=== PATIENT | female | born 1955 | race Caucasian/White ===

== ENCOUNTER → 2016-07-26 | Outpatient (CLI) | payer MEDICARE ==
[~2016-07-26] MED LIST: ACET500C PO; ALEN70TA39 PO; BUPR150T3 PO; BUTR10DI2 TD; CELE40TA PO; GABA300C3 PO; HUMI40KI SC; LEVO300T3 PO; LIDO5OI TOP; LYRI75CA PO; NEUR300C PO; ORPH100T PO; PREG50CA PO; PROT1TAB2 PO; PROV100T4 PO; TOPA100T8 PO; TYLENOL PO; VICO5TAB16 PO; VITA100L PO; WELL75TA PO; ZYLO300T4 PO; epipen INJ; vicodin PO
--- NOTE | 2016-08-11 00:57 | ECWPNPC ---
PATIENT NAME: VITA BLAKE : 1955 GENDER: FEMALE VISIT DATE: 07/26/2016 DISCHARGE DATE: 07/26/16 1240 VISIT LOCKED DATE TIME: PHYSICIAN: FESTUS MINAYA RESOURCE: FESTUS MINAYA REASON FOR APPOINTMENT 1. FOLLOWUP-LEG HISTORY OF PRESENT ILLNESS HISTORY OF PRESENT ILLNESS: CONTINUES W RIGHT LEG PAIN 5/10VAS THROBBING AND BURNING PAIN.PAIN AGGREVATED WHEN LEG IN DEPENDENT POSITION. HX OF MULTIPLE RIGHT FOOT SURGERIES ,FIRST ONE IN 1994.A TOTAL OF 2 SURGIES LAST ONE 1996 WHICH WAS A RIGHT ANKLE FUSION.REPORTS IMPROVEMENT W HYDROCODONE 10/325 DURING DAY AND BUTRANS PATCH 20MCG.REPORTING LESS SITE IRRITATION W BUTRANS PATCH.WANTS TO CONTINUE W USE OF PATCH IT IS HELPING. STARTED GABAPENTIN 300MG 2 TAB AT HS WHICH PATIENT FINDS VERY EFFECTIVE.REPORTS SIGNIFICANT IMPROVEMENT IN SLEEP AND NIGHTIME PAIN. PAIN THE PATIENT DESCRIBES THE PAIN... THE PATIENT DESCRIBES THE PAIN... THE PATIENT DESCRIBES THE PAIN... THE PATIENT DESCRIBES THE PAIN... THE PATIENT DESCRIBES THE PAIN... FALL RISK SCREENING: SCREENING :NO FALLS IN THE PAST YEAR CURRENT MEDICATIONS TAKING SYNTHROID 400 TABLET 1 TABLET ORALLY ONCE A DAY TAKING PROTONIX 40 MG TABLET DELAYED RELEASE 1 TABLET ORALLY TWICE A DAY TAKING HUMIRA PEN 40 MG/0.8ML PEN-INJECTOR KIT 0.8 ML SUBCUTANEOUS EVERY 10 DAYS TAKING TEGADERM AG MESH 2"X2" 1 PAD DIRECTED EXTERNALLY Q3D TAKING LIDOCAINE 5 % OINTMENT 1 APPLICATION TO AFFECTED AREA NEEDED EXTERNALLY TO LOW BACK THREE TIMES A DAY TAKING SIMVASTATIN 10 MG TABLET 1 TABLET IN THE EVENING ORALLY ONCE A DAY TAKING GABAPENTIN 300 MG CAPSULE 2 CAPSULE ORALLY BEFORE BEDTIME, NOTES: DID NOT RECIEVE SCRIPT TAKING HYDROCODONE-ACETAMINOPHEN 10-325 MG TABLET 1 TABLET ORALLY EVERY 4-6 HRS PRN PAIN MDD=3 TAKING BUTRANS 20 MCG/HR PATCH WEEKLY 1 PATCH TO SKIN TRANSDERMAL 1 PATCH WEEKLY =MDD TAKING PROLIA 60MG INJECTION SC Q 6 MONTHS PAST MEDICAL HISTORY SARCOIDOSIS RHUEMATOID ARTHRITIS HIATEL HERNIA HYPOTHYROID LEG PAIN BLIND RIGHT EYE ALLERGIES LEVAQUIN: ANAPHYLAXIS: ALLERGY BEE STINGS: FACE SWELLS/ DIFFICULTY BREATHING: ALLERGY SOCIAL HISTORY GENERAL: TOBACCO USE ARE YOU A:NONSMOKER LEARNING BARRIERS / SPECIAL NEEDS ORIENTED TO PLAN OF CARE: PATIENT, PAIN MANAGEMENT PATIENT, ORIENTED TO PLAN OF CARE: PATIENT, PAIN MANAGEMENT PATIENT. NEW PATIENT PAIN DIARY TODAY'S VISITNOTES FROM 0-10, WHAT LEVEL IS YOUR PAIN TODAY?0 PAIN CLINIC PFS, CLERGY, PUBLIC HEALTH REFERRALS PFS REFERRAL NEEDED?NO CLERGY REFERRAL NEEDED?NO PUBLIC HEALTH REFERRAL NEEDED?NO WAS THE PROVIDER NOTIFIED OF ANY PERTINENT INFO?NO PFS REFERRAL NEEDED?NO CLERGY REFERRAL NEEDED?NO PUBLIC HEALTH REFERRAL NEEDED?NO WAS THE PROVIDER NOTIFIED OF ANY PERTINENT INFO?NO REVIEW OF SYSTEMS CONSTITUTIONAL: ANY CHANGE IN YOUR MEDICAL CONDITION? NO . CHILLS NO . FEVER NO . INFECTION: DO YOU HAVE NEW INFECTIONS? NO . DO YOU HAVE HISTORY OF MRSA? NO . MUSCULOSKELETAL: ANY NEW PATTERNS OF PAIN OR NUMBNESS? NO . GASTROENTEROLOGY: ANY NEW CHANGE IN BOWEL CONTROL? NO . GENITOURINARY: ANY NEW CHANGE IN BLADDER CONTROL? NO . IS THERE A CHANCE YOU COULD BE ? NO . HEMATOLOGY/LYMPH: DO YOU TAKE ANY BLOOD THINNERS? (FOR EXAMPLE- COUMADIN, PLAVIX, AGGRENOX, PLATEL, PRADAXA, OR XARELTO) NO . WHEN WAS YOUR LAST DOSE? DATE: TIME: . NEUROLOGY: HAVE YOU FALLEN IN THE PAST 6 MONTHS? YES FELL 05/[address] PA DX WITH SPRAIN WENT TO ER 07/19/16 DUE TO NO PAIN RELIEF--XRAYS DONE--FX COCCYX . ANY NEW EXTREMITY NUMBNESS OR WEAKNESS? NO . CARDIOLOGY: DO YOU HAVE A PACEMAKER OR DEFIBRILLATOR? NO . RESPIRATORY: HAVE YOU BEEN SICK IN THE PAST WEEK? NO . FEVER NO . FLU LIKE SYMPTOMS? NO . COUGH NO . INTEGUMENTARY: DO YOU HAVE ANY RASHES OR OPEN SORES? YES RIGHT UPPER ARM FROM BUTRANS . ALLERGIC/IMMUNO: ARE YOU ALLERGIC TO SHELLFISH OR IV DYE? NO . ANY NEW ALLERGIES? NO . PSYCHIATRIC: DO YOU HAVE THOUGHTS OF HURTING YOURSELF OR SOMEONE ELSE? NO . ARE YOU ABUSED, NEGLECTED, OR IN AN UNSAFE ENVIRONMENT? NO . ENDOCRINOLOGY: ARE YOU DIABETIC? NO . OTHER: DO YOU NEED ANY PRESCRIPTIONS? NO . IF YES, PLEASE LIST: ____ . ANY NEW PROBLEMS WITH YOUR MEDICATIONS? NO . WHEN DID YOU LAST EAT? ____ . WHEN DID YOU LAST DRINK? ____ . WHAT DID YOU LAST DRINK? ____ . NAME OF PERSON DRIVING YOU HOME? ____ . DO YOU HAVE ANY OTHER QUESTIONS OR CONCERNS NO . REVIEWED BY: PROVIDER: FESTUS HARRIS . VITAL SIGNS WT 196 LBS, HT 63 IN, BMI 34.72 INDEX, BP 140/92 MM HG, HR 73 /MIN, RR 16 /MIN, TEMP 98.3 F, OXYGEN SAT % 100, REVIEWED BY: AD. EXAMINATION GENERAL EXAMINATION: LUNGS:LUNG SOUNDS ARE CLEAR. HEART:HEART RATE REGULAR. MUSCULOSKELETAL:*, MUSCLE STRENGTH TESTING 5/5 BILATERAL, PALPATION: NEGATIVE FOR PAIN OVER L/S SPINE. NEGATIVE FOR PAIN OVER L/S PARSPINALS. MUSCULOSKELETAL:*. ASSESSMENTS NEUROPATHY - G62.9 (PRIMARY) CHRONIC POST-OPERATIVE PAIN - G89.28 RIGHT LEG PAIN - M79.604 CHRONIC PRESCRIPTION OPIATE USE - Z79.891 TREATMENT NEUROPATHY INCREASE GABAPENTIN CAPSULE, 300 MG, 1, ORALLY, 1 CAP 12NOON ,2 AT HS MDD3, 30 DAY(S), 90, REFILLS 2, NOTES: DID NOT RECIEVE SCRIPT REFILL HYDROCODONE-ACETAMINOPHEN TABLET, 10-325 MG, 1 TABLET, ORALLY, EVERY 4-6 HRS PRN PAIN MDD=3, 30 DAY(S), 90, REFILLS 0 CONTINUE BUTRANS PATCH WEEKLY, 20 MCG/HR, 1 PATCH TO SKIN, TRANSDERMAL, 1 PATCH WEEKLY =MDD PROCEDURE CODES FA211 ESTABILISHED PATIENT [facility] FACILITY CHARGE G8730 PAIN ASSESS POS TOOL F/U PLAN DOC G8427 DOC MEDS VERIFIED W/PT OR RE FOLLOW UP 2 MONTHS ELECTRONICALLY SIGNED BY STEVEN EDMOND ON 08/09/2016 AT 10:56 AM EST DISCLAIMER : THIS IS A VISIT SUMMARY EXTRACTED FROM THE [employer] CHART. IT IS NOT A COPY OF THE [employer] PROGRESS NOTE. CURTIS
== END ==
LOC: M PAIN 11:00
PROVIDERS: ATTEND Nurse Practitioner Family
DX: Z09 Encounter for follow-up examination after completed treatment for conditions other than malignant neoplasm (principal); G62.9 Polyneuropathy, unspecified; G89.28 Other chronic postprocedural pain; M79.604 Pain in right leg; D86.9 Sarcoidosis, unspecified; M06.9 Rheumatoid arthritis, unspecified; Q40.1 Congenital hiatus hernia; E03.9 Hypothyroidism, unspecified; H54.41 Blindness, right eye, normal vision left eye; Z91.030 Bee allergy status; Z88.8 Allergy status to other drugs, medicaments and biological substances; Z79.891 Long term (current) use of opiate analgesic; Z79.899 Other long term (current) drug therapy; Z98.890 Other specified postprocedural states

== ENCOUNTER → 2016-10-14 | Outpatient (CLI) | payer MEDICARE ==
[~2016-10-14] MED LIST changes: +GABA-282 PO; -GABA300C3 PO
--- NOTE | 2016-10-22 00:23 | ECWPNPC ---
PATIENT NAME: VITA BLAKE : 1955 GENDER: FEMALE VISIT DATE: 10/14/2016 DISCHARGE DATE: 10/14/16 1529 VISIT LOCKED DATE TIME: PHYSICIAN: FESTUS MINAYA RESOURCE: FESTUS MINAYA REASON FOR APPOINTMENT 1. BACK AND LEGS HISTORY OF PRESENT ILLNESS HISTORY OF PRESENT ILLNESS: CONTINUES W RIGHT LEG PAIN 4/10VAS THROBBING AND BURNING PAIN.PAIN AGGREVATED WHEN LEG IN DEPENDENT POSITION. HX OF MULTIPLE RIGHT FOOT SURGERIES ,FIRST ONE IN 1994.A TOTAL OF 2 SURGERIES LAST ONE 1996 WHICH WAS A RIGHT ANKLE FUSION.REPORTS IMPROVEMENT W HYDROCODONE 10/325 DURING DAY AND BUTRANS PATCH 20MCG.REPORTING LESS SITE IRRITATION W BUTRANS PATCH.WANTS TO CONTINUE W USE OF PATCH IT IS HELPING. STARTED GABAPENTIN 300MG 2 TAB AT HS WHICH PATIENT FINDS VERY EFFECTIVE.REPORTS SIGNIFICANT IMPROVEMENT IN SLEEP AND NIGHTIME PAIN. PAIN THE PATIENT DESCRIBES THE PAIN... THE PATIENT DESCRIBES THE PAIN... THE PATIENT DESCRIBES THE PAIN... THE PATIENT DESCRIBES THE PAIN... THE PATIENT DESCRIBES THE PAIN... THE PATIENT DESCRIBES THE PAIN... FALL RISK SCREENING: SCREENING :NO FALLS IN THE PAST YEAR CURRENT MEDICATIONS TAKING SYNTHROID 400 TABLET 1 TABLET ORALLY ONCE A DAY TAKING PROTONIX 40 MG TABLET DELAYED RELEASE 1 TABLET ORALLY TWICE A DAY TAKING HUMIRA PEN 40 MG/0.8ML PEN-INJECTOR KIT 0.8 ML SUBCUTANEOUS EVERY 10 DAYS TAKING TEGADERM AG MESH 2"X2" 1 PAD DIRECTED EXTERNALLY Q3D TAKING LIDOCAINE 5 % OINTMENT 1 APPLICATION TO AFFECTED AREA NEEDED EXTERNALLY TO LOW BACK THREE TIMES A DAY TAKING SIMVASTATIN 10 MG TABLET 1 TABLET IN THE EVENING ORALLY ONCE A DAY TAKING PROLIA 60MG INJECTION SC Q 6 MONTHS TAKING GABAPENTIN 300 MG CAPSULE 1 ORALLY 1 CAP 12NOON ,2 AT HS MDD3, NOTES: DID NOT RECIEVE SCRIPT TAKING BUTRANS 20 MCG/HR PATCH WEEKLY 1 PATCH TO SKIN TRANSDERMAL 1PATCH Q7 DAYS =MDD 3MOS SUPPLY CAT DCHRONIC PAIN TAKING HYDROCODONE-ACETAMINOPHEN 10-325 MG TABLET 1 TABLET ORALLY EVERY 4-6 HRS PRN PAIN MDD=3 MEDICATION LIST REVIEWED AND RECONCILED WITH THE PATIENT PAST MEDICAL HISTORY SARCOIDOSIS RHUEMATOID ARTHRITIS HIATEL HERNIA HYPOTHYROID LEG PAIN BLIND RIGHT EYE ALLERGIES LEVAQUIN: ANAPHYLAXIS: ALLERGY BEE STINGS: FACE SWELLS/ DIFFICULTY BREATHING: ALLERGY SOCIAL HISTORY GENERAL: PAIN CLINIC PFS, CLERGY, PUBLIC HEALTH REFERRALS CLERGY REFERRAL NEEDED?NO WAS THE PROVIDER NOTIFIED OF ANY PERTINENT INFO?NO PFS REFERRAL NEEDED?NO PUBLIC HEALTH REFERRAL NEEDED?NO PATIENT: ____. REVIEW OF SYSTEMS CONSTITUTIONAL: ANY CHANGE IN YOUR MEDICAL CONDITION? YES, THINKS SHE IS GETTING SHINGLES UNDER LEFT BREAST . CHILLS NO . FEVER NO . INFECTION: DO YOU HAVE NEW INFECTIONS? NO . DO YOU HAVE HISTORY OF MRSA? NO . MUSCULOSKELETAL: ANY NEW PATTERNS OF PAIN OR NUMBNESS? YES, PAIN RIGHT SHOULDER X 3 DAYS, IBUPROFEN NOT HELPING . GASTROENTEROLOGY: ANY NEW CHANGE IN BOWEL CONTROL? NO . GENITOURINARY: ANY NEW CHANGE IN BLADDER CONTROL? NO . IS THERE A CHANCE YOU COULD BE ? NO . HEMATOLOGY/LYMPH: DO YOU TAKE ANY BLOOD THINNERS? (FOR EXAMPLE- COUMADIN, PLAVIX, AGGRENOX, PLATEL, PRADAXA, OR XARELTO) NO . WHEN WAS YOUR LAST DOSE? DATE: TIME: . NEUROLOGY: HAVE YOU FALLEN IN THE PAST 6 MONTHS? YES, RIGHT BEFORE . FX TAILBONE . ANY NEW EXTREMITY NUMBNESS OR WEAKNESS? NO . CARDIOLOGY: DO YOU HAVE A PACEMAKER OR DEFIBRILLATOR? NO . RESPIRATORY: HAVE YOU BEEN SICK IN THE PAST WEEK? NO . FEVER NO . FLU LIKE SYMPTOMS? NO . COUGH NO . INTEGUMENTARY: DO YOU HAVE ANY RASHES OR OPEN SORES? YES, BLISTER UNDER LEFT BREAST--SHE THINKS IT IS THE START OF SHINGLES WHICH SHE HAS HAD 3 TIMES IN THE PAST . ALLERGIC/IMMUNO: ARE YOU ALLERGIC TO SHELLFISH OR IV DYE? NO . ANY NEW ALLERGIES? NO . PSYCHIATRIC: DO YOU HAVE THOUGHTS OF HURTING YOURSELF OR SOMEONE ELSE? NO . ARE YOU ABUSED, NEGLECTED, OR IN AN UNSAFE ENVIRONMENT? NO . ENDOCRINOLOGY: ARE YOU DIABETIC? NO . OTHER: DO YOU NEED ANY PRESCRIPTIONS? NO . IF YES, PLEASE LIST: ____ . ANY NEW PROBLEMS WITH YOUR MEDICATIONS? NO . WHEN DID YOU LAST EAT? ____ . WHEN DID YOU LAST DRINK? ____ . WHAT DID YOU LAST DRINK? ____ . NAME OF PERSON DRIVING YOU HOME? ____ . DO YOU HAVE ANY OTHER QUESTIONS OR CONCERNS YES, HAS NOT RECEIVED THE GABAPENTIN YET--SCRIPT [facility] GONE TO [facility]--[facility] . REVIEWED BY: PROVIDER: FESTUS HARRIS . VITAL SIGNS WT 200.4 LBS, HT 63 IN, BMI 35.50 INDEX, BP 154/85 MM HG, HR 83 /MIN, RR 16 /MIN, TEMP 99.5 F, OXYGEN SAT % 95, NA INITIALS AW 246, REVIEWED BY: AD. EXAMINATION GENERAL EXAMINATION: LUNGS:LUNG SOUNDS ARE CLEAR. HEART:HEART RATE REGULAR. MUSCULOSKELETAL:*, MUSCLE STRENGTH TESTING 5/5 BLE. PALPATION: NEGATIVE FOR PAIN OVER L/S SPINE. NEGATIVE FOR PAIN OVER L/S PARASPINALS. RIGHT ANKLE: INSPECTION:NO ERYTHEMA NOTED, NO ECCHYMOSIS NOTED. PALPATION:MILD DISCOMFORT WITH PALPATION.. MUSCLE STRENGTH:5/5. ASSESSMENTS NEUROPATHY - G62.9 (PRIMARY) CHRONIC PRESCRIPTION OPIATE USE - Z79.891 PAIN IN RIGHT ANKLE AND JOINTS OF RIGHT FOOT - M25.571 OTHER CHRONIC PAIN - G89.29 TREATMENT NEUROPATHY REFILL GABAPENTIN CAPSULE, 300 MG, 1, ORALLY, 1 CAP 12NOON ,2 AT HS MDD3, 90 DAY(S), 270, REFILLS 0, NOTES: DID NOT RECIEVE SCRIPT CONTINUE BUTRANS PATCH WEEKLY, 20 MCG/HR, 1 PATCH TO SKIN, TRANSDERMAL, 1PATCH Q7 DAYS =MDD 3MOS SUPPLY CAT DCHRONIC PAIN CONTINUE HYDROCODONE-ACETAMINOPHEN TABLET, 10-325 MG, 1 TABLET, ORALLY, EVERY 4-6 HRS PRN PAIN MDD=3 NOTES: ISTOP REGISTRY REVIEWED AND DEMNOSTRATES COMPLLIANCE. BRINGS IN MEDICATIONS WHICH IS APPROPRIATE FOR WHAT WAS DISPENSED. RECENT URINE TOXICOLOGY REVIEWED. NO UNAUTHORIZED MEDICATIONS. NO ILLICIT SUBSTANCES AND PRESCRIBED MEDICATIONS WERE PRESENT. , #128 - SCREENING BMI AND F/U PLAN IN : BMI ABOVE NORMAL TODAY. DISCUSSED WITH PATIENT NUTRITIONAL FOOD CHOICES TO ASSIST WITH WEIGHT LOSS. RECCOMMENDED REDUCING SALT, SUGAR, SODA INTAKE. RECOMMEND INCREASE ACTIVITY TO INCLUDE WALKING ON A REGULAR BASIS. PROFESSIONAL NUTRITIONAL NUTRITIONAL GUIDANCE WAS OFFERED AND WAS DECLINED. , PATIENT WAS ADVISED TO START A WALKING PROGRAM TO STRENGTHEN LUMBAR PARASPINAL MUSCLES AND IMPROVE MOBILITY. THEY WERE ADVISED THAT THIS WILL IMPROVE WEIGHT LOSS AND ALSO DEPRESSION/FIBROMYALGIA SYMPTOMS. ADVISED TO WALK 10 MINUTES EVERY OTHER DAY ON A FLAT SURFACE. EMPHASIZED THE IMPORTANCE OF DOING THIS CONSISTANTLY AND NOT SPORATICALLY TO AVOID INJURY. STRONG ADVISED NOT TO DO MORE THAN 10 MINUTES EVERY OTHER DSY FOR THE FIRST 4 WEEKS. PROCEDURE CODES FA211 ESTABILISHED PATIENT [facility] FACILITY CHARGE G8783 BP SCR PRFRM RCMDD DEFIND SCR INTVL G8730 PAIN ASSESS POS TOOL F/U PLAN DOC 3016F PT SCRND UNHLTHY OH USE 1124F ACP DISCUSS-NO DSCNMKR DOCD 1036F TOBACCO NON-USER 0518F FALL PLAN OF CARE DOCD G8427 DOC MEDS VERIFIED W/PT OR RE G8417 BMI >=30 CALCUATE W/FOLLOWUP 3288F FALL RISK ASSESSMENT DOCD DISPOSITION & COMMUNICATION FOLLOW UP 2 MONTHS ELECTRONICALLY SIGNED BY STEVEN EDMOND ON 10/21/2016 AT 09:00 AM EDT DISCLAIMER : THIS IS A VISIT SUMMARY EXTRACTED FROM THE [email or web address] CHART. IT IS NOT A COPY OF THE [email or web address] PROGRESS NOTE. CURTIS
== END ==
LOC: M PAIN 14:20
PROVIDERS: ATTEND Nurse Practitioner Family
DX: Z09 Encounter for follow-up examination after completed treatment for conditions other than malignant neoplasm (principal); G89.29 Other chronic pain; G62.9 Polyneuropathy, unspecified; M25.571 Pain in right ankle and joints of right foot; D86.9 Sarcoidosis, unspecified; M19.90 Unspecified osteoarthritis, unspecified site; E03.9 Hypothyroidism, unspecified; K44.9 Diaphragmatic hernia without obstruction or gangrene; Z88.8 Allergy status to other drugs, medicaments and biological substances; Z91.030 Bee allergy status; Z79.891 Long term (current) use of opiate analgesic; Z79.899 Other long term (current) drug therapy

== ENCOUNTER → 2016-12-14 | Outpatient (CLI) | payer MEDICARE ==
--- NOTE | 2016-12-15 00:18 | ECWPNPC ---
PATIENT NAME: VITA BLAKE : 1955 GENDER: FEMALE VISIT DATE: 12/14/2016 DISCHARGE DATE: 12/14/16932 VISIT LOCKED DATE TIME: PHYSICIAN: FESTUS MINAYA RESOURCE: FESTUS MINAYA REASON FOR APPOINTMENT 1. FOLLOWUP HISTORY OF PRESENT ILLNESS HISTORY OF PRESENT ILLNESS: CONTINUES W RIGHT LEG PAIN 4/10VAS THROBBING AND BURNING PAIN.PAIN AGGREVATED WHEN LEG IN DEPENDENT POSITION. HX OF MULTIPLE RIGHT FOOT SURGERIES ,FIRST ONE IN 1994.A TOTAL OF 2 SURGERIES LAST ONE 1996 WHICH WAS A RIGHT ANKLE FUSION.REPORTS IMPROVEMENT W HYDROCODONE 10/325 DURING DAY AND BUTRANS PATCH 20MCG.REPORTING LESS SITE IRRITATION W BUTRANS PATCH.WANTS TO CONTINUE W USE OF PATCH IT IS HELPING. STARTED GABAPENTIN 300MG 2 TAB AT HS WHICH PATIENT FINDS VERY EFFECTIVE.REPORTS SIGNIFICANT IMPROVEMENT IN SLEEP AND NIGHTIME PAIN. PAIN THE PATIENT DESCRIBES THE PAIN... THE PATIENT DESCRIBES THE PAIN... THE PATIENT DESCRIBES THE PAIN... THE PATIENT DESCRIBES THE PAIN... THE PATIENT DESCRIBES THE PAIN... THE PATIENT DESCRIBES THE PAIN... THE PATIENT DESCRIBES THE PAIN... PAIN THE PATIENT DESCRIBES THE PAIN... THE PATIENT DESCRIBES THE PAIN... THE PATIENT DESCRIBES THE PAIN... THE PATIENT DESCRIBES THE PAIN... THE PATIENT DESCRIBES THE PAIN... THE PATIENT DESCRIBES THE PAIN... THE PATIENT DESCRIBES THE PAIN... FALL RISK SCREENING: SCREENING :NO FALLS IN THE PAST YEAR CURRENT MEDICATIONS TAKING SYNTHROID 400 TABLET 1 TABLET ORALLY ONCE A DAY TAKING PROTONIX 40 MG TABLET DELAYED RELEASE 1 TABLET ORALLY TWICE A DAY TAKING HUMIRA PEN 40 MG/0.8ML PEN-INJECTOR KIT 0.8 ML SUBCUTANEOUS EVERY 10 DAYS TAKING TEGADERM AG MESH 2"X2" 1 PAD DIRECTED EXTERNALLY Q3D TAKING LIDOCAINE 5 % OINTMENT 1 APPLICATION TO AFFECTED AREA NEEDED EXTERNALLY TO LOW BACK THREE TIMES A DAY TAKING SIMVASTATIN 10 MG TABLET 1 TABLET IN THE EVENING ORALLY ONCE A DAY TAKING PROLIA 60MG INJECTION SC Q 6 MONTHS TAKING GABAPENTIN 300 MG CAPSULE 1 ORALLY 1 CAP 12NOON ,2 AT HS MDD3, NOTES: DID NOT RECIEVE SCRIPT TAKING BUTRANS 20 MCG/HR PATCH WEEKLY 1 PATCH TO SKIN TRANSDERMAL 1PATCH Q7 DAYS =MDD 3MOS SUPPLY CAT DCHRONIC PAIN TAKING HYDROCODONE-ACETAMINOPHEN 10-325 MG TABLET 1 TABLET ORALLY EVERY 4-6 HRS PRN PAIN MDD=3 MEDICATION LIST REVIEWED AND RECONCILED WITH THE PATIENT PAST MEDICAL HISTORY SARCOIDOSIS RHUEMATOID ARTHRITIS HIATEL HERNIA HYPOTHYROID LEG PAIN BLIND RIGHT EYE ALLERGIES LEVAQUIN: ANAPHYLAXIS: ALLERGY BEE STINGS: FACE SWELLS/ DIFFICULTY BREATHING: ALLERGY SURGICAL HISTORY RIGHT WRIST FRACTURE WITH PLATE YEARS AGO RIGHT ANKLE FUSION YEARS AGO ABDOMINAL HYSTERECTOMY 1978 REVIEW OF SYSTEMS CONSTITUTIONAL: ANY CHANGE IN YOUR MEDICAL CONDITION? NO . CHILLS NO . FEVER NO . INFECTION: DO YOU HAVE NEW INFECTIONS? NO . DO YOU HAVE HISTORY OF MRSA? NO . MUSCULOSKELETAL: ANY NEW PATTERNS OF PAIN OR NUMBNESS? NO . GASTROENTEROLOGY: ANY NEW CHANGE IN BOWEL CONTROL? NO . GENITOURINARY: ANY NEW CHANGE IN BLADDER CONTROL? NO . IS THERE A CHANCE YOU COULD BE ? NO . HEMATOLOGY/LYMPH: DO YOU TAKE ANY BLOOD THINNERS? (FOR EXAMPLE- COUMADIN, PLAVIX, AGGRENOX, PLATEL, PRADAXA, OR XARELTO) NO . WHEN WAS YOUR LAST DOSE? DATE: TIME: . NEUROLOGY: HAVE YOU FALLEN IN THE PAST 6 MONTHS? YES, PT STATES SHE FELL AND BROKE HER TAILBONE 05/2016. STEPPED ON DOG TOY, SEEN AT [facility]. . ANY NEW EXTREMITY NUMBNESS OR WEAKNESS? NO . CARDIOLOGY: DO YOU HAVE A PACEMAKER OR DEFIBRILLATOR? NO . RESPIRATORY: HAVE YOU BEEN SICK IN THE PAST WEEK? NO . FEVER NO . FLU LIKE SYMPTOMS? NO . COUGH NO . INTEGUMENTARY: DO YOU HAVE ANY RASHES OR OPEN SORES? NO . ALLERGIC/IMMUNO: ARE YOU ALLERGIC TO SHELLFISH OR IV DYE? NO . ANY NEW ALLERGIES? NO . PSYCHIATRIC: DO YOU HAVE THOUGHTS OF HURTING YOURSELF OR SOMEONE ELSE? NO . ARE YOU ABUSED, NEGLECTED, OR IN AN UNSAFE ENVIRONMENT? NO . ENDOCRINOLOGY: ARE YOU DIABETIC? NO . OTHER: DO YOU NEED ANY PRESCRIPTIONS? YES, GABAPENTIN,BUSTRANS, HYDROCODONE APAP . IF YES, PLEASE LIST: ____ . ANY NEW PROBLEMS WITH YOUR MEDICATIONS? NO . WHEN DID YOU LAST EAT? ____ . WHEN DID YOU LAST DRINK? ____ . WHAT DID YOU LAST DRINK? ____ . NAME OF PERSON DRIVING YOU HOME? ____ . DO YOU HAVE ANY OTHER QUESTIONS OR CONCERNS NO . REVIEWED BY: PROVIDER: FESTUS HARRIS . VITAL SIGNS WT 192 LBS, HT 63 IN, BMI 34.01 INDEX, BP 160/85 MM HG, HR 56 /MIN, RR 18 /MIN, TEMP 99.2 F, OXYGEN SAT % 92, SAFE IN ENV? (Y/N) Y, REVIEWED BY: EM. EXAMINATION GENERAL EXAMINATION: LUNGS:LUNG SOUNDS ARE CLEAR. HEART:HEART RATE REGULAR. MUSCULOSKELETAL:*, MUSCLE STRENGTH TESTING 5/5 BLE. PALPATION: NEGATIVE FOR PAIN OVER L/S SPINE. NEGATIVE FOR PAIN OVER L/S PARASPINALS. ASSESSMENTS NEUROPATHY - G62.9 (PRIMARY) CHRONIC PRESCRIPTION OPIATE USE - Z79.891 TREATMENT NEUROPATHY REFILL GABAPENTIN CAPSULE, 300 MG, 1, ORALLY, 1 CAP 12NOON ,2 AT HS MDD3, 90 DAY(S), 270, REFILLS 0 REFILL BUTRANS PATCH WEEKLY, 20 MCG/HR, 1 PATCH TO SKIN, TRANSDERMAL, 1PATCH Q7 DAYS =MDD 3MOS SUPPLY CAT DCHRONIC PAIN, 90 DAY(S), 12, REFILLS 0 REFILL HYDROCODONE-ACETAMINOPHEN TABLET, 10-325 MG, 1 TABLET, ORALLY, Q4-6 HR PRN MDD3 THREE MOS. SUPPLY CAT D CHRONIC PAIN, 90 DAY(S), 270, REFILLS 0 NOTES: ISTOP REGISTRY REVIEWED AND DEMNOSTRATES COMPLLIANCE. BRINGS IN MEDICATIONS WHICH IS APPROPRIATE FOR WHAT WAS DISPENSED. RECENT URINE TOXICOLOGY REVIEWED. NO UNAUTHORIZED MEDICATIONS. NO ILLICIT SUBSTANCES AND PRESCRIBED MEDICATIONS WERE PRESENT. , RISKS AND BENEFITS OF NARCOTIC/OPIOD MEDICATIONS WERE REVIEWED WITH PATIENT - THIS INCLUDES BUT IS NOT LIMITED TO RISK OF DEPENDANCE/DEVELOPMENT OF ADDICTION, MOOD DISTURBANCE AND DEPRESSION, OSTEOPOROSIS, HORMONAL AND LABIDAL CHANGES, RESPIRATORY DEPRESSION AND . PATIENT IS ADVISED NOT TO DRIVE WHILE ON THESE MEDICATIONS.URINE TOX TODAY. PROCEDURE CODES FA211 ESTABILISHED PATIENT [facility] FACILITY CHARGE G8730 PAIN ASSESS POS TOOL F/U PLAN DOC G8427 DOC MEDS VERIFIED W/PT OR RE DISPOSITION & COMMUNICATION FOLLOW UP 3 MONTHS ELECTRONICALLY SIGNED BY STEVEN EDMOND ON 12/14/2016 AT 10:48 AM EDT DISCLAIMER : THIS IS A VISIT SUMMARY EXTRACTED FROM THE [employer] CHART. IT IS NOT A COPY OF THE [employer] PROGRESS NOTE. MTDD
== END ==
LOC: M PAIN 08:40
PROVIDERS: ATTEND Nurse Practitioner Family
DX: G89.29 Other chronic pain (principal); G62.9 Polyneuropathy, unspecified; M79.604 Pain in right leg; M06.9 Rheumatoid arthritis, unspecified; K44.9 Diaphragmatic hernia without obstruction or gangrene; E03.9 Hypothyroidism, unspecified; Z91.030 Bee allergy status; Z88.1 Allergy status to other antibiotic agents; Z79.891 Long term (current) use of opiate analgesic; Z79.899 Other long term (current) drug therapy

== ENCOUNTER → 2017-03-01 | Outpatient (CLI) | payer MEDICARE ==
[~2017-03-01] MED LIST changes: +BUTR10DI TD; -BUTR10DI2 TD; +LEVO300T21 PO; -LEVO300T3 PO; +PROV100T25 PO; -PROV100T4 PO; +TOPA100T12 PO; -TOPA100T8 PO
--- NOTE | 2017-03-05 00:32 | ECWPNPC ---
PATIENT NAME: VITA BLAKE : 1955 GENDER: FEMALE VISIT DATE: 03/01/2017 DISCHARGE DATE: 03/01/17921 VISIT LOCKED DATE TIME: PHYSICIAN: FESTUS MINAYA RESOURCE: FESTUS MINAYA REASON FOR APPOINTMENT 1. BACK AND R LEG HISTORY OF PRESENT ILLNESS HISTORY OF PRESENT ILLNESS: CONTINUES W RIGHT LEG PAIN 4/10VAS THROBBING AND BURNING PAIN.PAIN AGGREVATED WHEN LEG IN DEPENDENT POSITION. HX OF MULTIPLE RIGHT FOOT SURGERIES ,FIRST ONE IN 1994.A TOTAL OF 2 SURGERIES LAST ONE 1996 WHICH WAS A RIGHT ANKLE FUSION.REPORTS IMPROVEMENT W HYDROCODONE 10/325 DURING DAY AND BUTRANS PATCH 20MCG. USING GABAPENTIN 300MG AT 12N AND 2 TAB AT HS WHICH PATIENT FINDS VERY EFFECTIVE.REPORTS SIGNIFICANT IMPROVEMENT IN SLEEP AND NIGHTIME PAIN. PAIN THE PATIENT DESCRIBES THE PAIN... THE PATIENT DESCRIBES THE PAIN... THE PATIENT DESCRIBES THE PAIN... THE PATIENT DESCRIBES THE PAIN... THE PATIENT DESCRIBES THE PAIN... THE PATIENT DESCRIBES THE PAIN... THE PATIENT DESCRIBES THE PAIN... THE PATIENT DESCRIBES THE PAIN... FALL RISK SCREENING: SCREENING :NO FALLS IN THE PAST YEAR CURRENT MEDICATIONS TAKING SYNTHROID 400 TABLET 1 TABLET ORALLY ONCE A DAY TAKING PROTONIX 40 MG TABLET DELAYED RELEASE 1 TABLET ORALLY TWICE A DAY TAKING HUMIRA PEN 40 MG/0.8ML PEN-INJECTOR KIT 0.8 ML SUBCUTANEOUS EVERY 10 DAYS TAKING TEGADERM AG MESH 2"X2" 1 PAD DIRECTED EXTERNALLY Q3D TAKING LIDOCAINE 5 % OINTMENT 1 APPLICATION TO AFFECTED AREA NEEDED EXTERNALLY TO LOW BACK THREE TIMES A DAY TAKING SIMVASTATIN 10 MG TABLET 1 TABLET IN THE EVENING ORALLY ONCE A DAY TAKING PROLIA 60MG INJECTION SC Q 6 MONTHS TAKING GABAPENTIN 300 MG CAPSULE 1 ORALLY 1 CAP 12NOON ,2 AT HS MDD3 TAKING HYDROCODONE-ACETAMINOPHEN 10-325 MG TABLET 1 TABLET ORALLY Q4-6 HR PRN MDD3 THREE MOS. SUPPLY CAT D CHRONIC PAIN TAKING BUTRANS 20 MCG/HR PATCH WEEKLY 1 PATCH TO SKIN TRANSDERMAL 1PATCH Q7 DAYS =MDD 3MOS SUPPLY CAT DCHRONIC PAIN TAKING VITAMIN B12 1000 MCG TABLET EXTENDED RELEASE 1 TABLET ORALLY ONCE A DAY MEDICATION LIST REVIEWED AND RECONCILED WITH THE PATIENT PAST MEDICAL HISTORY SARCOIDOSIS RHUEMATOID ARTHRITIS HIATEL HERNIA HYPOTHYROID LEG PAIN BLIND RIGHT EYE ALLERGIES LEVAQUIN: ANAPHYLAXIS: ALLERGY BEE STINGS: FACE SWELLS/ DIFFICULTY BREATHING: ALLERGY REVIEW OF SYSTEMS REVIEWED BY: PROVIDER: FESTUS HARRIS . CONSTITUTIONAL: ANY CHANGE IN YOUR MEDICAL CONDITION? NO . CHILLS NO . FEVER NO . INFECTION: DO YOU HAVE NEW INFECTIONS? NO . DO YOU HAVE HISTORY OF MRSA? NO . MUSCULOSKELETAL: ANY NEW PATTERNS OF PAIN OR NUMBNESS? NO . GASTROENTEROLOGY: ANY NEW CHANGE IN BOWEL CONTROL? NO . GENITOURINARY: ANY NEW CHANGE IN BLADDER CONTROL? NO . IS THERE A CHANCE YOU COULD BE ? NO . HEMATOLOGY/LYMPH: DO YOU TAKE ANY BLOOD THINNERS? (FOR EXAMPLE- COUMADIN, PLAVIX, AGGRENOX, PLATEL, PRADAXA, OR XARELTO) NO . WHEN WAS YOUR LAST DOSE? DATE: TIME: . NEUROLOGY: HAVE YOU FALLEN IN THE PAST 6 MONTHS? NO . ANY NEW EXTREMITY NUMBNESS OR WEAKNESS? NO . CARDIOLOGY: DO YOU HAVE A PACEMAKER OR DEFIBRILLATOR? NO . RESPIRATORY: HAVE YOU BEEN SICK IN THE PAST WEEK? NO . FEVER NO . FLU LIKE SYMPTOMS? NO . COUGH NO . INTEGUMENTARY: DO YOU HAVE ANY RASHES OR OPEN SORES? NO . ALLERGIC/IMMUNO: ARE YOU ALLERGIC TO SHELLFISH OR IV DYE? NO . ANY NEW ALLERGIES? NO . PSYCHIATRIC: DO YOU HAVE THOUGHTS OF HURTING YOURSELF OR SOMEONE ELSE? NO . ARE YOU ABUSED, NEGLECTED, OR IN AN UNSAFE ENVIRONMENT? NO . ENDOCRINOLOGY: ARE YOU DIABETIC? NO . OTHER: DO YOU NEED ANY PRESCRIPTIONS? NO . IF YES, PLEASE LIST: ____ . ANY NEW PROBLEMS WITH YOUR MEDICATIONS? NO . WHEN DID YOU LAST EAT? ____ . WHEN DID YOU LAST DRINK? ____ . WHAT DID YOU LAST DRINK? ____ . NAME OF PERSON DRIVING YOU HOME? ____ . DO YOU HAVE ANY OTHER QUESTIONS OR CONCERNS NO . VITAL SIGNS WT 195 LBS, HT 63 IN, BMI 34.54 INDEX, BP 161/84 MM HG, HR 54 /MIN, RR 18 /MIN, TEMP 98.1 F, OXYGEN SAT % 94%, NA INITIALS SC 08:56, REVIEWED BY: NL. EXAMINATION GENERAL EXAMINATION: LUNGS:LUNG SOUNDS ARE CLEAR. HEART:HEART RATE REGULAR. MUSCULOSKELETAL:*, MUSCLE STRENGTH TESTING 5/5 BLE. PALPATION: NEGATIVE FOR PAIN OVER L/S SPINE. NEGATIVE FOR PAIN OVER L/S PARASPINALS. ASSESSMENTS NEUROPATHY - G62.9 (PRIMARY) CHRONIC PRESCRIPTION OPIATE USE - Z79.891 TREATMENT NEUROPATHY CONTINUE GABAPENTIN CAPSULE, 300 MG, 1, ORALLY, 1 CAP 12NOON ,2 AT HS MDD3, 90 DAY(S), 270, REFILLS 0 REFILL HYDROCODONE-ACETAMINOPHEN TABLET, 10-325 MG, 1 TABLET, ORALLY, Q4-6 HR PRN MDD3 THREE MOS. SUPPLY CAT D CHRONIC PAIN, 90 DAY(S), 270, REFILLS 0 REFILL BUTRANS PATCH WEEKLY, 20 MCG/HR, 1 PATCH TO SKIN, TRANSDERMAL, 1PATCH Q7 DAYS =MDD 3MOS SUPPLY CAT DCHRONIC PAIN, 90 DAY(S), 12, REFILLS 0 NOTES: ISTOP REGISTRY REVIEWED AND DEMNOSTRATES COMPLLIANCE. BRINGS IN MEDICATIONS WHICH IS APPROPRIATE FOR WHAT WAS DISPENSED. RECENT URINE TOXICOLOGY REVIEWED. NO UNAUTHORIZED MEDICATIONS. NO ILLICIT SUBSTANCES AND PRESCRIBED MEDICATIONS WERE PRESENT. , RISKS AND BENEFITS OF NARCOTIC/OPIOD MEDICATIONS WERE REVIEWED WITH PATIENT - THIS INCLUDES BUT IS NOT LIMITED TO RISK OF DEPENDANCE/DEVELOPMENT OF ADDICTION, MOOD DISTURBANCE AND DEPRESSION, OSTEOPOROSIS, HORMONAL AND LABIDAL CHANGES, RESPIRATORY DEPRESSION AND . PATIENT IS ADVISED NOT TO DRIVE WHILE ON THESE MEDICATIONS. PROCEDURE CODES FA211 ESTABILISHED PATIENT [facility] CHARGE G8730 PAIN ASSESS POS TOOL F/U PLAN DOC G8427 DOC MEDS VERIFIED W/PT OR RE DISPOSITION & COMMUNICATION FOLLOW UP 3 MONTHS ELECTRONICALLY SIGNED BY STEVEN EDMOND ON 03/01/2017 AT 09:43 AM EDT DISCLAIMER : THIS IS A VISIT SUMMARY EXTRACTED FROM THE [employer] CHART. IT IS NOT A COPY OF THE [employer] PROGRESS NOTE. MTDD
== END ==
LOC: M PAIN 08:40
PROVIDERS: ATTEND Nurse Practitioner Family
DX: G89.29 Other chronic pain (principal); M79.604 Pain in right leg; G62.9 Polyneuropathy, unspecified; M06.9 Rheumatoid arthritis, unspecified; E03.9 Hypothyroidism, unspecified; Z91.030 Bee allergy status; Z88.8 Allergy status to other drugs, medicaments and biological substances; Z79.891 Long term (current) use of opiate analgesic; Z79.899 Other long term (current) drug therapy

== ENCOUNTER → 2017-07-04 | Outpatient (CLI) | payer MEDICARE | LOC: M PAIN 10:30 | DX: G89.28 Other chronic postprocedural pain (principal); G62.9 Polyneuropathy, unspecified; D86.9 Sarcoidosis, unspecified; M06.9 Rheumatoid arthritis, unspecified; E03.9 Hypothyroidism, unspecified; K44.9 Diaphragmatic hernia without obstruction or gangrene; Z88.8 Allergy status to other drugs, medicaments and biological substances; Z91.030 Bee allergy status; Z79.891 Long term (current) use of opiate analgesic; Z79.899 Other long term (current) drug therapy; Z98.1 Arthrodesis status | CPT/HCPCS: G0463 ==

== ENCOUNTER → 2017-09-04 | Outpatient (CLI) | payer MEDICARE | LOC: M PAIN 09:00 | DX: G62.9 Polyneuropathy, unspecified (principal); M79.671 Pain in right foot; E03.9 Hypothyroidism, unspecified; Z79.891 Long term (current) use of opiate analgesic; Z79.899 Other long term (current) drug therapy; Z91.030 Bee allergy status; Z88.8 Allergy status to other drugs, medicaments and biological substances | CPT/HCPCS: G0463 ==

== ENCOUNTER 2020-08-02 22:34 | Emergency (ER) | payer MEDICARE ==
[~2020-08-02] VITALS: Ht 157.5 cm; Wt 94.6 kg
[~2020-08-02 22:34] MED LIST changes: -ALEN70TA39 PO; +ALEN70TA82 PO; -BUPR150T3 PO; +BUPR150T4 PO; -LIDO5OI TOP; +LIDO5OIN11 TOP; -VICO5TAB16 PO; +VICO5TAB17 PO; -ZYLO300T4 PO; +ZYLO300T6 PO
--- OUTSIDE RECORDS SUMMARY | 2020-08-02 22:39 | CCD ---
Author Author [facility] Organization [facility] Address Unknown Phone Unavailable Care Team Providers Care Preschool Associate Teacher Name Role Phone Mack, L Karena MICROBIOLOGY COORDINATOR Unavailable + Mack, L Karena MICROBIOLOGY COORDINATOR Unavailable + Mack, L Karena MICROBIOLOGY COORDINATOR Unavailable + Mack, L Karena MICROBIOLOGY COORDINATOR Unavailable + Mack, L Karena MICROBIOLOGY COORDINATOR Unavailable + Mack, L Karena MICROBIOLOGY COORDINATOR Unavailable + Mack, L Karena MICROBIOLOGY COORDINATOR Unavailable + Mack, L Karena MICROBIOLOGY COORDINATOR Unavailable + Mack, L Karena MICROBIOLOGY COORDINATOR Unavailable + Mack, L Karena MICROBIOLOGY COORDINATOR Unavailable + Mack, L Karena MICROBIOLOGY COORDINATOR Unavailable + Mack, L Karena MICROBIOLOGY COORDINATOR Unavailable + Mack, L Karena MICROBIOLOGY COORDINATOR Unavailable + Mack, L Karena MICROBIOLOGY COORDINATOR Unavailable + Mack, L Karena MICROBIOLOGY COORDINATOR Unavailable + Mack, L Karena MICROBIOLOGY COORDINATOR Unavailable + Mack, L Karena MICROBIOLOGY COORDINATOR Unavailable + Mack, L Karena MICROBIOLOGY COORDINATOR Unavailable + Mack, L Karena MICROBIOLOGY COORDINATOR Unavailable + Mack, L Karena MICROBIOLOGY COORDINATOR Unavailable + Mack, L Karena MICROBIOLOGY COORDINATOR Unavailable + Ranjeet Barfield MD Unavailable Unavailable Nunez-RaineRanjeet MD Unavailable Unavailable Nunez-RaineRanjeet MD Unavailable Unavailable Nunez-RaineRanjeet MD Unavailable Unavailable Nunez-RaineRanjeet MD Unavailable Unavailable Nunez-RaineRanjeet MD Unavailable Unavailable Nunez-RaineRanjeet MD Unavailable Unavailable Nunez-RaineRanjeet MD Unavailable Unavailable Nunez-RaineRanjeet borden MD Unavailable Unavailable Nunez-RaineRanjeet borden MD Unavailable Unavailable Nunez-RaineRanjeet MD Unavailable Unavailable Nunez-RaineRanjeet MD Unavailable Unavailable Nunez-RaineRanjeet MD Unavailable Unavailable Nunez-RaineRanjeet borden MD Unavailable Unavailable Nunez-RaineRanjeet MD Unavailable Unavailable Nunez-RaineRanjeet MD Unavailable Unavailable Nunez-RaineRanjeet MD Unavailable Unavailable Nunez-RaineRanjeet MD Unavailable Unavailable Nunez-RaineRanjeet MD Unavailable Unavailable Nunez-RaineRanjeet borden MD Unavailable Unavailable Nunez-RaineRanjeet MD Unavailable Unavailable Nunez-RaineRanjeet borden MD Unavailable Unavailable Nunez-RaineRanjeet borden MD Unavailable Unavailable Nunez-RaineRanjeet borden MD Unavailable Unavailable Nunez-RaineRanjeet borden MD Unavailable Unavailable Nunez-RaineRanjeet MD Unavailable Unavailable Nunez-RaineRanjeet MD Unavailable Unavailable Nunez-RaineRanjeet MD Unavailable Unavailable Nunez-RaineRanjeet MD Unavailable Unavailable Nunez-RaineRanjeet MD Unavailable Unavailable Nunez-RaineRanjeet MD Unavailable Unavailable Nunez-RaineRanjeet MD Unavailable Unavailable Nunez-RaineRanjeet borden MD Unavailable Unavailable Nunez-RaineRanjeet borden MD Unavailable Unavailable Nunez-RaineRanjeet MD Unavailable Unavailable Nunez-RaineRanjeet MD Unavailable Unavailable Nunez-RaineRanjeet MD Unavailable Unavailable Nunez-RaineRanjeet MD Unavailable Unavailable Nunez-RaineRanjeet MD Unavailable Unavailable Nunez-RaineRanjeet MD Unavailable Unavailable Nunez-RaineRanjeet MD Unavailable Unavailable Nunez-RaineRanjeet MD Unavailable Unavailable Nunez-RaineRanjeet borden MD Unavailable Unavailable Nunez-RaineRanjeet MD Unavailable Unavailable Nunez-RaineRanjeet MD Unavailable Unavailable Nunez-RaineRanjeet borden MD Unavailable Unavailable Nunez-RaineRanjeet borden MD Unavailable Unavailable Nunez-RaineRanjeet borden MD Unavailable Unavailable Nunez-RaineRanjeet borden MD Unavailable Unavailable Nuenz-RaineRanjeet borden MD Unavailable Unavailable Nunez-RaineRanjeet borden MD Unavailable Unavailable Nunez-RaineRanjeet borden MD Unavailable Unavailable Nunez-RaineRanjeet borden MD Unavailable Unavailable Nunez-RaineRanjeet borden MD Unavailable Unavailable Nunez-RaineRanjeet borden MD Unavailable Unavailable Nunez-RaineRanjeet MD Unavailable Unavailable Nunez-RaineRanjeet borden MD Unavailable Unavailable Nunez-RaineRanjeet borden MD Unavailable Unavailable Nunez-RaineRanjeet borden MD Unavailable Unavailable Nunez-RaineRanjeet borden MD Unavailable Unavailable Nunez-RaineRanjeet borden MD Unavailable Unavailable Nunez-RaineRanjeet borden MD Unavailable Unavailable Nunez-RaineRanjeet borden MD Unavailable Unavailable Nunez-RaineRanjeet borden MD Unavailable Unavailable Nunez-RaineRanjeet MD Unavailable Unavailable Nunez-RaineRanjeet borden MD Unavailable Unavailable Ranjeet Barfield MD Unavailable Unavailable Ranjeet Barfield MD Unavailable Unavailable Ranjeet Barfield MD Unavailable Unavailable Ranjeet Barfield MD Unavailable Unavailable Ranjeet Barfield MD Unavailable Unavailable Ranjeet Barfield MD Unavailable Unavailable Phan Davidson MD Unavailable Phan Davidson MD Unavailable Phan Davidson MD Unavailable Phan Davidson MD Unavailable Phan Davidson MD Unavailable Phan Davidson MD Unavailable Phan Davidson MD Unavailable Phan Davidson MD Unavailable Phan Davidson MD Unavailable Yajaira CONCEPCION MD Unavailable Unavailable Yajaira CONCEPCION MD Unavailable Unavailable Yajaira CONCEPCION MD Unavailable Unavailable Yajaira CONCEPCION MD Unavailable Unavailable Yajaira CONCEPCION MD Unavailable Unavailable MD JJ MICHELLE Unavailable Unavailable Laureen Fry MD Unavailable Unavailable Laureen Fry MD Unavailable Unavailable Laureen Fry MD Unavailable Unavailable Laureen Fry MD Unavailable Unavailable Laureen Fry MD Unavailable Unavailable Laureen Fry MD Unavailable Unavailable Laureen Fry MD Unavailable Unavailable Laureen Fry MD Unavailable Unavailable Laureen Fry MD Unavailable Unavailable Laureen Fry MD Unavailable Unavailable Laureen Fry MD Unavailable Unavailable Laureen Fry MD Unavailable Unavailable Laureen Fry MD Unavailable Unavailable Laureen Fry MD Unavailable Unavailable Laureen Fry MD Unavailable Unavailable Laureen Fry MD Unavailable Unavailable Laureen Fry MD Unavailable Unavailable Laureen Fry MD Unavailable Unavailable BolLaureen bernard MD Unavailable Unavailable BollaLaureen MD Unavailable Unavailable Bolla, Laureen Chang MD Unavailable Unavailable Bolla, Laureen Chang MD Unavailable Unavailable Bolla, Laureen Chang MD Unavailable Unavailable Bolmarco antonio, Laureen Chang MD Unavailable Unavailable Bolla, Laureen Chang MD Unavailable Unavailable Bolmarco antonio, Laureen Chang MD Unavailable Unavailable Bolla, Laureen Chang MD Unavailable Unavailable Bolla, Laureen Chang MD Unavailable Unavailable Bolla, Laureen Chang MD Unavailable Unavailable Bolmarco antonio, Laureen Chang MD Unavailable Unavailable Bolla, Laureen Chang MD Unavailable Unavailable Bolmarco antonio, Laureen Chang MD Unavailable Unavailable Bolla, Laureen Chang MD Unavailable Unavailable Bolla, Laureen Chang MD Unavailable Unavailable Bolla, Laureen Chang MD Unavailable Unavailable Bolmarco antonio, Laureen Chang MD Unavailable Unavailable Bolla, Laureen Chang MD Unavailable Unavailable Bolmarco antonio, Laureen Chang MD Unavailable Unavailable Bolmarco antonio, Laureen Chang MD Unavailable Unavailable Bolmarco antonio, Laureen Chang MD Unavailable Unavailable Bolmarco antonio, Laureen Chang MD Unavailable Unavailable Bolmarco antonio, Laureen Chang MD Unavailable Unavailable BolLaureen bernard MD Unavailable Unavailable BolLaureen bernard MD Unavailable Unavailable Bolmarco antonio, Laureen Chang MD Unavailable Unavailable BolLaureen bernard MD Unavailable Unavailable Bolmarco antonio, Laureen Chang MD Unavailable Unavailable Laureen Fry MD Unavailable Unavailable Galilea Michelle MD Unavailable [phone] Galilea Michelle MD Unavailable [phone] Galilea Michelle MD Unavailable [phone] Galilea Michelle MD Unavailable [phone] Galilea Michelle MD Unavailable [phone] Galilea Michelle MD Unavailable [phone] NIKKI IV, L ЕЛЕНА INTEGRITY SPECIALIST Unavailable Unavailable NIKKI IV, L ЕЛЕНА INTEGRITY SPECIALIST Unavailable Unavailable NIKKI IV, L ЕЛЕНА INTEGRITY SPECIALIST Unavailable Unavailable NIKKI IV, L ЕЛЕНА INTEGRITY SPECIALIST Unavailable Unavailable NIKKI IV, L ЕЛЕНА INTEGRITY SPECIALIST Unavailable Unavailable NIKKI IV, L ЕЛЕНА INTEGRITY SPECIALIST Unavailable Unavailable NIKKI IV, L ЕЛЕНА INTEGRITY SPECIALIST Unavailable Unavailable NIKKI IV, L ЕЛЕНА INTEGRITY SPECIALIST Unavailable Unavailable NIKKI IV, L ЕЛЕНА INTEGRITY SPECIALIST Unavailable Unavailable NIKKI IV, L ЕЛЕНА INTEGRITY SPECIALIST Unavailable Unavailable NIKKI IV, L ЕЛЕНА INTEGRITY SPECIALIST Unavailable Unavailable NIKKI IV, L ЕЛЕНА INTEGRITY SPECIALIST Unavailable Unavailable NIKKI IV, L ЕЛЕНА INTEGRITY SPECIALIST Unavailable Unavailable NIKKI IV, L ЕЛЕНА INTEGRITY SPECIALIST Unavailable Unavailable NIKKI IV, L ЕЛЕНА INTEGRITY SPECIALIST Unavailable Unavailable NIKKI IV, L ЕЛЕНА INTEGRITY SPECIALIST Unavailable Unavailable NIKKI IV, L ЕЛЕНА INTEGRITY SPECIALIST Unavailable Unavailable NIKKI IV, L ЕЛЕНА INTEGRITY SPECIALIST Unavailable Unavailable NIKKI IV, L ЕЛЕНА INTEGRITY SPECIALIST Unavailable Unavailable NIKKI IV, L ЕЛЕНА INTEGRITY SPECIALIST Unavailable Unavailable NIKKI IV, L ЕЛЕНА INTEGRITY SPECIALIST Unavailable Unavailable NIKKI IV, L ЕЛЕНА INTEGRITY SPECIALIST Unavailable Unavailable NIKKI IV, L ЕЛЕНА INTEGRITY SPECIALIST Unavailable Unavailable NIKKI IV, L ЕЛЕНА INTEGRITY SPECIALIST Unavailable Unavailable NIKKI IV, L ЕЛЕНА INTEGRITY SPECIALIST Unavailable Unavailable NIKKI IV, L ЕЛЕНА INTEGRITY SPECIALIST Unavailable Unavailable NIKKI IV, L ЕЛЕНА INTEGRITY SPECIALIST Unavailable Unavailable NIKKI IV, L ЕЛЕНА INTEGRITY SPECIALIST Unavailable Unavailable NIKKI IV, L ЕЛЕНА INTEGRITY SPECIALIST Unavailable Unavailable NIKKI IV, L ЕЛЕНА INTEGRITY SPECIALIST Unavailable Unavailable NIKKI IV, L ЕЛЕНА INTEGRITY SPECIALIST Unavailable Unavailable NIKKI IV, L ЕЛЕНА INTEGRITY SPECIALIST Unavailable Unavailable Sorge, C Keegan MD Unavailable Unavailable Sorge, C Keegan MD Unavailable Unavailable Sorge, C Keegan MD Unavailable Unavailable Sorge, C Keegan MD Unavailable Unavailable Sorge, C Keegan MD Unavailable Unavailable Sorge, C Keegan MD Unavailable Unavailable Sorge, C Keegan MD Unavailable Unavailable Sorge, C Keegan MD Unavailable Unavailable Sorge, C Keegan MD Unavailable Unavailable Sorge, C Keegan MD Unavailable Unavailable Sorge, C Keegan MD Unavailable Unavailable Sorge, C Keegan MD Unavailable Unavailable Sorge, C Keegan MD Unavailable Unavailable Sorge, C Keegan MD Unavailable Unavailable Sorge, C Keegan MD Unavailable Unavailable Sorge, C Keegan MD Unavailable Unavailable Sorge, C Keegan MD Unavailable Unavailable Sorge, C Keegan MD Unavailable Unavailable Sorge, C Keegan MD Unavailable Unavailable Sorge, C Keegan MD Unavailable Unavailable Sorge, C Keegan MD Unavailable Unavailable MEZAChacorta PA Unavailable Unavailable MEZA, Chacorta JHALAUREN PA Unavailable Unavailable MEZA, K LAUREN PA Unavailable Unavailable MEZA, K LAUREN PA Unavailable Unavailable MEZA, K LAUREN PA Unavailable Unavailable MEZA, K LAUREN PA Unavailable Unavailable MEZA, K LAUREN PA Unavailable Unavailable MEZA, K LAUREN PA Unavailable Unavailable MEZA, K LAUREN PA Unavailable Unavailable MEZA, K LAUREN PA Unavailable Unavailable MEZA, K LAUREN PA Unavailable Unavailable MEZA, K LAUREN PA Unavailable Unavailable MEZA, K LAUREN PA Unavailable Unavailable MEZA, K LAUREN PA Unavailable Unavailable MEZA, K LAUREN PA Unavailable Unavailable MEZA, K LAUREN PA Unavailable Unavailable MEZA, K LAUREN PA Unavailable Unavailable MEZA, K LAUREN PA Unavailable Unavailable MEZA, K LAUREN PA Unavailable Unavailable MEZA, K LAUREN PA Unavailable Unavailable MEZA, K LAUREN PA Unavailable Unavailable MEZA, K LAUREN PA Unavailable Unavailable MEZA, K LAUREN PA Unavailable Unavailable MEZA, K LAUREN PA Unavailable Unavailable MEZA, K LAUREN PA Unavailable Unavailable MEZA, K LAUREN PA Unavailable Unavailable MEZA, K LAUREN PA Unavailable Unavailable MEZA, K LAUREN PA Unavailable Unavailable MEZA, K LAUREN PA Unavailable Unavailable MEZA, K LAUREN PA Unavailable Unavailable MEZA, K LAUREN PA Unavailable Unavailable MEZA, K LAUREN PA Unavailable Unavailable MEZA, K LAUREN PA Unavailable Unavailable MEZA, K LAUREN PA Unavailable Unavailable MEZA, K LAUREN PA Unavailable Unavailable MEZA, K LAUREN PA Unavailable Unavailable MEZA, K LAUREN PA Unavailable Unavailable MEZA, K LAUREN PA Unavailable Unavailable MEZA, K LAUREN PA Unavailable Unavailable MEZA, K LAUREN PA Unavailable Unavailable MEZA, K LAUREN PA Unavailable Unavailable MEZA, K LAUREN PA Unavailable Unavailable MEZA, K LAUREN PA Unavailable Unavailable MEZA, K LAUREN PA Unavailable Unavailable MEZA, K LAUREN PA Unavailable Unavailable MEZA, K LAUREN PA Unavailable Unavailable MEZA, K LAUREN PA Unavailable Unavailable MEZA, K LAUREN PA Unavailable Unavailable MEZA, K LAUREN PA Unavailable Unavailable MEZA, K LAUREN PA Unavailable Unavailable MEZA, K LAUREN PA Unavailable Unavailable Pauly Rivera MD Unavailable Unavailable Sorge, C Keegan MD Unavailable Unavailable Sorge, C Keegan MD Unavailable Unavailable Sorge, C Keegan MD Unavailable Unavailable Sorge, C Keegan MD Unavailable Unavailable Sorge, C Keegan MD Unavailable Unavailable Sorge, C Keegan MD Unavailable Unavailable Sorge, C Keegan MD Unavailable Unavailable Sorge, C Keegan MD Unavailable Unavailable Sorge, C Keegan MD Unavailable Unavailable Sorge, C Keegan MD Unavailable Unavailable Sorge, C Keegan MD Unavailable Unavailable Sorge, C Keegan MD Unavailable Unavailable Sorge, C Keegan MD Unavailable Unavailable Sorge, C Keegan MD Unavailable Unavailable Sorge, C Keegan MD Unavailable Unavailable Sorge, C Keegan MD Unavailable Unavailable Sorge, C Keegan MD Unavailable Unavailable Sorge, C Keegan MD Unavailable Unavailable Sorge, C Keegan MD Unavailable Unavailable Sorge, C Keegan MD Unavailable Unavailable Елена Aydin Nikki, IV MICROBIOLOGY COORDINATOR Unavailable Unavailable Re-disclosure Warning The records that you are about to access may contain information from federally-assisted alcohol or drug abuse programs. If such information is present, then the following federally mandated warning applies: This information has been disclosed to you from records protected by federal confidentiality rules (42 CFR part 2). The federal rules prohibit you from making any further disclosure of this information unless further disclosure is expressly permitted by the written consent of the person to whom it pertains or as otherwise permitted by 42 CFR part 2. A general authorization for the release of medical or other information is NOT sufficient for this purpose. The Federal rules restrict any use of the information to criminally investigate or prosecute any alcohol or drug abuse patient.The records that you are about to access may contain highly sensitive health information, the redisclosure of which is protected by Article 27-F of the [facility] Public Health law. If you continue you may have access to information: Regarding HIV / AIDS; Provided by facilities licensed or operated by the [facility] Office of Mental Health; or Provided by the [facility] Office for People With Developmental Disabilities. If such information is present, then the following [facility] mandated warning applies: This information has been disclosed to you from confidential records which are protected by state law. State law prohibits you from making any further disclosure of this information without the specific written consent of the person to whom it pertains, or as otherwise permitted by law. Any unauthorized further disclosure in violation of state law may result in a fine or long-term sentence or both. A general authorization for the release of medical or other information is NOT sufficient authorization for further disc losure. Allergies and Adverse Reactions Type Description Substance Reaction Status Data Source(s ) Environmental Allergy BEE STING BEE STING ANAPHYLAXIS UNKNOWN [facility] Drug allergy REMICADE REMICADE [facility] Drug allergy LEVAQUIN LEVAQUIN [facility] Drug allergy IODINE IODINE [facility] Drug allergy CODEINE CODEINE [facility] Miscellaneous allergy No Known Food Allergies No Known Food Allergies [facility] Drug allergy ZITHROMAX ZITHROMAX Redness MODERATE [facility] Encounters Encounter Providers Location Date Indications Data Source(s ) Outpatient Attender: Ranjeet Barfield MD 10/30/2020 12:00:00 AM [facility] Emergency Attender: LAUREN BREENd mitter: LAUREN MEZA PAConsultant: Keegan Rivera MD [phone] 08/02/2020 11:56:00 AM EST - 08/02/2020 09:45:00 PM EST LEFT SIDE IS NUMB [facility] LEFT SIDE IS NUMB Patient discharged. Outpatient Attender: FRANCISCO Rizomitter: FRANCISCO CONCEPCION MDReferrer: FRANCISCO CONCEPCION MDConsultant: Keegan Rivera MD 2019 03:01:00 PM EST - 07/13/2020 03:40:00 PM EST Health check up [facility] Health check up Patient discharged. Outpatient Attender: Brandt Davidson MD CPSCAORT-CPSCAORT 02:06:00 PM EST - 06/15/2020 02:07:00 PM EST [facility] Patient discharged. Outpatient Attender: Keegan Torres mitter: Keegan Rivera MDReferrer: Keegan Rivera MDConsultant: Keegan Rivera MD 06/01/2020 10:04: 00 AM EST - 06/01/2020 10:40:00 AM EST Influenza vaccination [facility] Influenza vaccination Patient discharged. Outpatient Attender: FRANCISCO Marti DAdmitter: FRANCISCO CONCEPCION MDReferrer: FRANCISCO CONCEPCION MDConsultant: Keegan Rivera MD 2019 01:51:00 PM EST - 05/29/2020 02:20:00 PM EST Pain in ear [facility] Pain in ear Patient discharged. Outpatient Attender: LAUREN Niño mitter: LAUREN MEZA PAReferrer: LAUREN MEZA PAConsultant: Keegan Rivera MD 05/13/2020 12:14 :00 PM EDT - 05/13/2020 12:50:00 PM EDT Cough [facility] Cough Patient discharged. Outpatient Attender: Ranjeet Barfield MD [id number] 05/01/2020 12:00:00 AM EDT - 05/01/2020 02:25:05 PM EDT Rheumatoid arthritis with rheumatoid fac tor, unspecified [facility] Rheumatoid arthritis with rheumatoid fac tor, unspecified Outpatient Attender: Keegan Rivera MD ED-IMAGH 04/09 10:45:00 AM EDT - 04/09/2020 10:46:00 AM EDT PARASESTHIA RIGHT UPPER EXTEMITY AND HAND [facility] PARASESTHIA RIGHT UPPER EXTEMITY AND BROWN D Patient discharged. Outpatient Attender: Keegan Torres mitter: Keegan Rivera MDConsultant: Keegan Rivera MD 008 04/03/2020 03:53:00 PM EDT - 04/03/2020 03:54:00 PM EDT Radiological examination [facility] Radiological examination Outpatient Attender: Keegan Torres mitter: Keegan Rivera MDReferrer: Keegan Rivera MDConsultant: Keegan Rivera MD 04/03/2020 02:01: 00 PM EDT - 04/03/2020 02:30:00 PM EDT Pain in shoulder [facility] Pain in shoulder Patient discharged. Outpatient Attender: ЕЛЕНА JORDAN IVAdm itter: ЕЛЕНА JORDAN IVConsultant: Keegan Rivera MD 008 02/24/2020 10:04:00 AM EDT - 02/24/2020 10:04:00 AM EDT Lab test [facility] Lab test Outpatient Attender: ЕЛЕНА JORDAN IV ED-HCCEDWPCP 2019 10:06:00 AM EDT - 02/21/2020 10:07:00 AM EDT [facility] Patient discharged. Outpatient Attender: ЕЛНЕА JORDAN IVAdm itter: ЕЛЕНА JORDAN IVConsultant: Keegan Rivera MD 008 01/08/2020 11:17:00 AM EDT - 01/08/2020 11:17:00 AM EDT Radiological examination [facility] Radiological examination Outpatient Attender: ЕЛЕНА JORDAN IV ED-HCCEDWPCP 2019 11:59:00 AM EDT - 01/06/2020 12:00:00 PM EDT [facility] Patient discharged. Outpatient Attender: Ranjeet Barfield MD [id number] 11/01/2019 12:00:00 AM EDT Rheumatoid arthritis with rheumatoid factor, unspecifi [facility] Rheumatoid arthritis with rheumatoid fac tor, unspecified Outpatient Attender: ЕЛЕНА JORDAN IV ED-HCCEDWPCP 2019 01:11:00 PM EDT - 10/18/2019 01:12:00 PM EDT [facility] Patient discharged. Outpatient Attender: ЕЛЕНА JORDAN IV -HCCEDWPCP 2019 11:05:00 AM EST - 08/06/2019 11:06:00 AM EST [facility] Patient discharged. Outpatient Attender: Jj Michelle MD CPSCAORT-[id number] 03/2020 11:17:00 AM EST - 07/25/2019 11:18:00 AM EST [facility] Patient discharged. Outpatient Attender: JJ Frye er: JJ Brownultant: Keegan Rivera MD 008 07/23/2019 10:02:00 AM EST - 07/23/2019 10:03:00 AM EST Lab test [facility] Lab test Outpatient Attender: Jj Michelle MD CPSCAORT-[id number] 06/16 09:51:00 AM EST - 07/02/2019 09:52:00 AM EST R07.9 [facility] R07.9 Patient discharged. Outpatient Attender: MELANY Jordan RNPAttender: ЕЛЕНА JORDAN IV ED-HCCEDWPCP 04/02/2019 08:04:00 AM EDT - 04/02/2019 08:05:00 AM EDT [facility] Patient discharged. Outpatient Attender: Bernardo Fry MD ED-IMAGH 11/2017 08:57:00 AM EST - 05/21/2018 08:58:00 AM EST SPINAL STENOSIS [facility] SPINAL STENOSIS Outpatient Attender: Karena De Diosanastacio FARFAN ED-IMAGH 2017 10:49:00 AM EDT - 02/06/2018 10:50:00 AM EDT CHRONIC PAIN [facility] CHRONIC PAIN Immunizations Vaccine Date Status Description Data Source(s) Influenza, high dose seasonal 06/01/2020 12:00:00 AM EST complet ed Influenza, high dose seasonal Influenza, high dose seasonal 06/01/2020 Completed 135 [facility] Influenza, high dose seasonal 06/01/2020 12:00:00 AM EST complet ed Influenza, high dose seasonal Influenza, high dose seasonal 06/01/2020 Completed 135 [facility] Medications Medication Brand Name Start Date Product Form Dose Route Admi nistrative Instructions Pharmacy Instructions Status Indications Reaction Description Data Source(s) Ibuprofen 800 MG Oral Tablet Ibuprofen 800MG Oral Tabl et Ibuprofen 800MG Oral Tablet 07/13/2020 12:00:00 AM EST 1 TABLET BY MOUTH active Ibuprofen 800MG Oral Tablet 07/13/2020 Unknown BY MOUTH NEEDED EVERY 8HR 1 [facility] [id number] met[facility]ol succinate 25 MG Extende d Release Oral Tablet Metoprolol Succinate 25MG Oral Tablet, Extended Release Metoprolol Succinate 25MG Oral Tablet, Extended Release 05/29/2020 12:00:00 AM EST 1 TABLET ORAL active Metoprolol Succinate 25MG Oral Tablet, Extended Releas e 05/29/2020 Unknown ORAL AT BEDTIME 1 TABLET [id number] [facility] Azith[facility] 250MG Oral Tablet 05/29/2020 12:00:00 AM EST 1 TABLET BY MOUTH active Azithromycin 250MG Oral Tablet 05/29/2020 Unk nown BY MOUTH DAILY [id number]ol succinate 25 MG Extende d Release Oral Tablet Metoprolol Succinate 25MG Oral Tablet, Extended Release Metoprolol Succinate 25MG Oral Tablet, Extended Release 05/29/2020 12:00:00 AM EST 1 TABLET ORAL active Metoprolol Succinate 25MG Oral Tablet, Extended Releas e 05/29/2020 Unknown ORAL AT BEDTIME 1 TABLET [id number] [facility] o[facility]ital Levothyroxine Sodium 0.075 MG Oral Tablet Levothyroxin e 75MCG Oral Tablet Levothyroxine 75MCG Oral Tablet 05/29/2020 12:00:00 AM EST 1 TABLET O RAL active Levothyroxine 75MCG Oral Tablet 05/29/2020 Unknown ORAL DAILY 1 TABLET [id number] [facility] pital Ergocalciferol 06206 UNT Oral Capsule Vitamin D 81956I U Oral Capsule Vitamin D 11551EM Oral Capsule 05/29/2020 12:00:00 AM EST 1 CAPSULE BY MOUTH active Vitamin D 21086LR Oral Capsule 05/29/2020 Unknown BY MOUTH Once a Week 1 CAPSULE [id number] [facility] pital Diclofenac Sodium 0.01 MG/MG Topical Gel [Voltaren] Voltaren Gel 1% Topical application Gel/Jelly Voltaren Gel 1% Topical application Gel/Jelly 05/29/20 20 12:00:00 AM EST 2 GRAM TOPICAL active Voltaren Gel 1% Topical application Gel/Jelly 05/29/2020 Unknown TOPICAL 4 TIMES A DAY 2 GRAM [id number] [facility] Lisinopril 20 MG Oral Tablet Lisinopril 20MG Oral Tabl et Lisinopril 20MG Oral Tablet 05/29/2020 12:00:00 AM EST 1 TABLET ORAL active Lisinopril 20MG Oral Tablet 05/29/2020 Unknown ORAL TWICE A DAY 1 TABLET [id number] [facility] Azithromycin 250MG Oral Tablet 05/29/2020 12:00:00 AM EST 1 TABLET BY MOUTH active Azithromycin 250MG Oral Tablet 0 Unknown BY MOUTH DAILY 1 TABLET 437909 [facility]ital Amlodipine 10 MG Oral Tablet amLODIPine Besylate 10MG Oral Tablet amLODIPine Besylate 10MG Oral Tablet 05/29/2020 12:00:00 AM EST 1 TABLET ORAL active amLODIPine Besylate 10MG Oral Tablet 05/29/2020 Unknown OR AL DAILY 1 TABLET 326032 [facility] pital Levothyroxine Sodium 0.075 MG Oral Tablet Levothyroxin e 75MCG Oral Tablet Levothyroxine 75MCG Oral Tablet 05/29/2020 12:00:00 AM EST 1 TABLET O RAL active Levothyroxine 75MCG Oral Tablet 05/29/2020 Unknown ORAL DAILY 1 TABLET 684191 [facility] pital Lisinopril 20 MG Oral Tablet Lisinopril 20MG Oral Tabl et Lisinopril 20MG Oral Tablet 05/29/2020 12:00:00 AM EST 1 TABLET ORAL active Lisinopril 20MG Oral Tablet 05/29/2020 Unknown ORAL TWICE A DAY 1 TABLET 030080 [facility] Ergocalciferol 98198 UNT Oral Capsule Vitamin D 21999M U Oral Capsule Vitamin D 86163EQ Oral Capsule 05/29/2020 12:00:00 AM EST 1 CAPSULE BY MOUTH active Vitamin D 50582CU Oral Capsule 05/29/2020 Unknown BY MOUTH Once a Week 1 CAPSULE [id number] [facility] Allopurinol 300 MG Oral Tablet Allopurinol 300MG Oral Tablet Allopurinol 300MG Oral Tablet 05/29/2020 12:00:00 AM EST 1 TABLET ORAL acti ve Allopurinol 300MG Oral Tablet 05/29/2020 Unknown ORAL DAILY 1 TABLET 065974 [facility] Allopurinol 300 MG Oral Tablet Allopurinol 300MG Oral Tablet Allopurinol 300MG Oral Tablet 05/29/2020 12:00:00 AM EST 1 TABLET ORAL acti ve Allopurinol 300MG Oral Tablet 05/29/2020 Unknown ORAL DAILY 1 TABLET [facility] Amlodipine 10 MG Oral Tablet amLODIPine Besylate 10MG Oral Tablet amLODIPine Besylate 10MG Oral Tablet 05/29/2020 12:00:00 AM EST 1 TABLET ORAL active amLODIPine Besylate 10MG Oral Tablet 05/29/2020 Unknown OR AL DAILY 1 TABLET 696223 [facility] 200 ACTUAT Albuterol 0.09 MG/ACTUAT Mete red Dose Inhaler [Ventolin] Ventolin HFA 0.09MG/1Actuation Inhalation Suspension Ventolin HFA 0.09MG/1Actuation Inhalation Suspension 05/13/2020 12:00:00 AM EDT 2 mL INHALATION active Ventolin HFA 0.09MG/1Actuation Inhalation Suspension 05/13/2020 Unknown INHALATION NEEDED EVERY 6 HR 2 PUFF [id number] [facility] 200 ACTUAT Albuterol 0.09 MG/ACTUAT Mete red Dose Inhaler [Ventolin] Ventolin HFA 0.09MG/1Actuation Inhalation Suspension Ventolin HFA 0.09MG/1Actuation Inhalation Suspension 05/13/2020 12:00:00 AM EDT 2 mL INHALATION active Ventolin HFA 0.09MG/1Actuation Inhalation Suspension 05/13/2020 Unknown INHALATION NEEDED EVERY 6 HR 2 PUFF 012130 [facility] Prednisone 5 MG Oral Tablet predniSONE 5 MG Oral Table t (DELTASONE) predniSONE 5 MG Oral Tablet (DELTASONE) 05/01/2020 12:00:00 AM EDT active 10 mg bid for 5 days then 5 mg tid for 5 days, then 5 mg bid for 5 days, then 5 mg qday for 5 days, then stop [facility] Humira 40 MG/0.4ML Subcutaneous Prefilled Syringe Kit (susan mum) [id number] 04/30/2020 12:00:00 AM EDT act ross Rheumatoid arthritis involving multiple sites with positive rheumatoid factor INJECT 1 SYRINGE UNDER THE SKIN EVERY 7 DAYS. [facility] Rheumatoid arthritis involving multiple sites with positive rheumatoid factor tramadol hydrochloride 50 MG Oral Tablet traMADol HCl 50 MG Oral Tablet (ULTRAM) traMADol HCl 50 MG Oral Tablet (ULTRAM) 04/27/2020 12:00:[address] [facility] meloxicam 15 MG Oral Tablet Meloxicam 15 MG Oral Table t (MOBIC) Meloxicam 15 MG Oral Tablet (MOBIC) 04/03/2020 12:00:00 AM EDT active TAKE 1 TABLET BY MOUTH DAILY IN THE MORNING [facility] Metformin hydrochloride 500 MG Oral Tablet METFORMIN HCL 03/11/2020 12:00:00 AM EDT tablet 180 TAKE ONE TABLET BY MOUTH TWI CE A DAY WITH MEALS TAKE ONE TABLET BY MOUTH TWICE A DAY WITH MEALS SOLD: 06/08/2020 [facility] 100 mg 03/11/2020 12:00:00 AM EDT tablet 180 TAKE ONE TABLET BY MOUTH TWICE A DAY TAKE ONE TABLET BY MOUTH TWICE A DAY SOLD: 06/08/2020 [facility] 10 mg 03/11/2020 12:00:00 AM EDT tablet 90 TAKE ONE TABLET BY MOUTH EVERY DAY TAKE ONE TABLET BY MOUTH EVERY DAY SOLD: 03/11/2020 [facility] 75 mcg 03/11/2020 12:00:00 AM EDT tablet 90 TAKE ONE TABLET BY MOUTH EVERY MORNING ON AN EMPTY STOMACH TAKE ONE TABLET BY MOUTH EVERY MORNING O N AN EMPTY STOMACH SOLD: 06/08/2020 [facility] 40 mg 03/11/2020 12:00:00 AM EDT tablet,delayed release (DR/EC) 180 TAKE ONE TABLET BY MOUTH TWICE A DAY TAKE ONE TABLET BY MOUTH TWICE A DAY SOLD: 03/11/2020 [facility] 75 mcg 03/11/2020 12:00:00 AM EDT tablet 90 TAKE ONE TABLET BY MOUTH EVERY MORNING ON AN EMPTY STOMACH TAKE ONE TABLET BY MOUTH EVERY MORNING O N AN EMPTY STOMACH SOLD: 03/11/2020 [facility] pantoprazole 40 MG Delayed Release Oral Tablet PANTOPRAZOLE SODIUM 03/11/2020 12:00:00 AM EDT tablet,delayed release (DR/EC) 180 T MANDY ONE TABLET BY MOUTH TWICE A DAY TAKE ONE TABLET BY MOUTH TWICE A DAY SOLD: 06/08/2020 [facility] 25 mg 03/11/2020 12:00:00 AM EDT tablet 180 TAKE ONE TABLET BY MOUTH TWICE A DAY WITH FOOD TAKE ONE TABLET BY MOUTH TWICE A DAY WITH FOOD SOLD: [facility] 25 mg 03/11/2020 12:00:00 AM EDT tablet 180 TAKE ONE TABLET BY MOUTH TWICE A DAY WITH FOOD TAKE ONE TABLET BY MOUTH TWICE A DAY WITH FOOD SOLD: [facility] 10 mg 03/11/2020 12:00:00 AM EDT tablet 90 TAKE ONE TABLET BY MOUTH EVERY DAY TAKE ONE TABLET BY MOUTH EVERY DAY SOLD: 06/08/2020 [facility] 20 mg 03/11/2020 12:00:00 AM EDT tablet 90 TAKE ONE TABLET BY MOUTH EVERY DAY TAKE ONE TABLET BY MOUTH EVERY DAY SOLD: 03/11/2020 [facility] 100 mg 03/11/2020 12:00:00 AM EDT tablet 180 TAKE ONE TABLET BY MOUTH TWICE A DAY TAKE ONE TABLET BY MOUTH TWICE A DAY SOLD: 03/11/2020 [facility] 40 mg 03/11/2020 12:00:00 AM EDT tablet 90 TAKE ONE TABLET BY MOUTH EVERY DAY TAKE ONE TABLET BY MOUTH EVERY DAY SOLD: 03/11/2020 [facility] 500 mg 03/11/2020 12:00:00 AM EDT tablet 180 TAKE ONE TABLET BY MOUTH TWICE A DAY WITH MEALS TAKE ONE TABLET BY MOUTH TWICE A DAY WITH MEALS SOLD: 03/11/2020 [facility] Citalopram 40 MG Oral Tablet CITALOPRAM HYDROBROMIDE 03/11/2020 12:00:00 AM EDT tablet 90 TAKE ONE TABLET BY MOUTH EVERY D AY TAKE ONE TABLET BY MOUTH EVERY DAY SOLD: 06/08/2020 [facility] Adalimumab 40 MG/0.4ML Subcutaneous Pen-injector Kit (Humira Pen) [id number] 11/01/2019 12:00:00 AM EDT 40 mg Subcutaneous active Inject 0.4 mLs into the skin once a week [facility] 0.8 ML adalimumab 50 MG/ML Prefilled Syr joseph [Humira] Humira 40 MG/0.8ML Subcutaneous Prefilled Syringe Kit (adalimumab) Humira 40 MG/0.8ML Subcutaneous Prefilled Syringe Kit (adalimumab) 08/30/2019 12:00:00 AM EST aborted INJECT ONE SYRINGE SUBCUTANEOUSLY EVERY WEEK. REFRIGERATE. [facility] Simvastatin 40 MG Oral Tablet Simvastatin 40MG Oral Ta blet Simvastatin 40MG Oral Tablet 06/19/2019 12:00:00 AM EST 1 TABLET ORAL active Simvastatin 40MG Oral Tablet 06/19/2019 Unknown ORAL DAILY 1 TABLET 851356 RxNorm [facility] 0.8 ML adalimumab 50 MG/ML Auto-Injector Adalimumab 40 MG/0.8ML PNKT Adalimumab 40 MG/0.8ML PNKT 11/01/2017 12:00:00 AM EDT 40 mg Subcutaneous aborted Inject 40 mg into the skin once a week [facility] [place] Insurance Providers Payer name Policy type / Coverage type Policy ID Covered libertarian ID Covered libertarian's relationship to pickett Policy Pickett Plan Information MEDICARE [id number] SP [id number] A MEDICARE-OP [id number] undefined [id number] MEDICARE [id number] Other [id number] MEDICARE-CLINIC [id number] undefined [id number] MEDICARE [id number] S [id number] [id number] MEDICAID [id number] S [id number] MEDICARE A [id number] Self [id number] MEDICARE [id number] S [id number] A MEDICARE [id number] Other [id number] A MEDICARE [id number] Mini [id number] A MEDICARE [id number] [facility] OPTIONS-OP [id number] undefined [id number] MEDICARE -RECURRING [id number] undefined [id number] MEDICARE-OP [id number] undefined [id number] MEDICARE A [id number] Self [id number] MEDICARE-CLINIC [id number] undefined [id number] [facility] HE[facility] CARE OPTIONS -RECURRING [id number] un defined [id number] MEDICARE-CLINIC [id number] undefined [id number] ANS-Medicare Part B [id number] ANSI-Medicare Part B [id number] ANSI-Medicare Part B [id number] AARP U [id number] Self [id number] MEDICAID UNAVAILABLE UNAVAILA BLE MEDICARE [id number] SP [id number] A MEDICARE [id number] SP [id number] A MEDICARE -O/P [id number] 18 [id number] MEDICARE -CLINIC [id number] 18 [id number] MEDICARE C [id number] S [id number] A [facility] HE[facility] CARE OPTIONS -O/P [id number] [facility] OPTIONS -CLINIC [id number] [facility] CARE OPTIONS -CLN [id number] MEDICARE -O/P [id number] 18 [id number] AAR O [id number] S [id number] MEDICARE OUTPATIENT M [id number] S [id number] Problems, Conditions, and Diagnoses Code Display Name Description Problem Type Effective Dates Data Source(s) I10 Essential (primary) hypertension Essential (primary) h ypertension Diagnosis 07/13/2020 03:01:00 PM [facility] F329 Major depressive disorder, single episod e, unspecified Major depressive disorder, single episode, unspecified Diagnosis 07/13/2020 03:01:00 PM [facility] K219 Gastro-esophageal reflux disease without esophagitis Gastro-esophageal reflux disease without esophagitis Diagnosis 07/13/2020 03:01:00 PM ES T [facility] E039 Hypothyroidism, unspecified Hypothyroidism, unspecifie d Diagnosis 07/13/2020 03:01:00 PM [facility] M069 Rheumatoid arthritis, unspecified Rheumatoid art hritis, unspecified Diagnosis 07/13/2020 03:01:00 PM [facility] [id number] Chronic gout, unspecified, without tophu s (tophi) Chronic gout, unspecified, without tophus (tophi) Diagnosis 07/13/2020 03:01:00 PM E [facility] E119 Type 2 diabetes mellitus without complic ations Type 2 diabetes mellitus without complications Diagnosis 07/13/2020 03:01:00 PM [facility] 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 Diagnosis 07/13/2020 03:01:00 PM [facility] E559 Vitamin D deficiency, unspecified Vitamin D defi ciency, unspecified Diagnosis 07/13/2020 03:01:00 PM [facility] D869 Sarcoidosis, unspecified Sarcoidosis, unspecified Diag nosis 07/13/2020 03:01:00 PM [facility] H9203 Otalgia, bilateral Otalgia, bilateral Diagnosis 03:01:00 PM [facility] [id number] Pain in right shoulder Pain in right shoulder Diagnosi s 07/13/2020 03:01:00 PM [facility] R36324 Pain in right foot Pain in right foot Diagnosis 03:01:00 PM [facility] D86.9 Sarcoidosis, unspecified SARCOIDOSIS, UNSPECIFIED Diag nosis 06/15/2020 02:06:00 PM [facility] M19.011 Primary osteoarthritis, right shoulder P RIMARY OSTEOARTHRITIS, RIGHT SHOULDER Diagnosis 06/15/2020 02:06:00 PM [facility] M75.41 Impingement syndrome of right shoulder I MPINGEMENT SYNDROME OF RIGHT SHOULDER Diagnosis 06/15/2020 02:06:00 PM [facility] Z23 Encounter for immunization Encounter for immunization Diagnosis 06/01/2020 10:04:00 AM [facility] M5412 Radiculopathy, cervical region Radiculopathy, cervical region Diagnosis 05/29/2020 01:51:00 PM [facility] G4733 Obstructive sleep apnea (adult) (pediatr ic) Obstructive sleep apnea (adult) (pediatric) Diagnosis 05/29/2020 01:51:00 PM [facility] H6691 Otitis media, unspecified, right ear Otitis medi a, unspecified, right ear Diagnosis 05/13/2020 12:14:00 PM [facility] J209 Acute bronchitis, unspecified Acute bronchitis, unspec ified Diagnosis 05/13/2020 12:14:00 PM [facility] 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 O ther tank terminal gauger (current) drug therapy Diagnosis [facility] Rheumatoid arthritis with rheumatoid fac tor, unspecified Rheumatoid arthritis with rheumatoid factor, unspecified Diagnosis 05/01/20 20 01:31:10 PM [facility] M50.30 Other cervical disc degeneration, unspec ified cervical region OTHER CERVICAL DISC DEGENERATION, UNSP CERVICAL REGION Diagnosis 04/09 10:45:00 AM [facility] M54.12 Radiculopathy, cervical region RADICULOPATHY, CERVICAL REGION Diagnosis 04/09/2020 10:45:00 AM [facility] R20.2 Paresthesia of skin PARESTHESIA OF SKIN Diagnosis 0 04/09/2020 10:45:00 AM [facility] M542 Cervicalgia Cervicalgia Diagnosis 04/03/2020 02:01:00 PM [facility] Z1389 Encounter for screening for other disord er Encounter for screening for other disorder Diagnosis 04/03/2020 02:01:00 PM [facility] M810 Age-related osteoporosis without current pathological fracture Age-related osteoporosis without current pathological fracture Diagnosis 02:01:00 PM EDT [facility] R202 Paresthesia of skin Paresthesia of skin Diagnosis 0 04/03/2020 02:01:00 PM [facility] E785 Hyperlipidemia, unspecified Hyperlipidemia, unspecifie d Diagnosis 04/03/2020 02:01:00 PM [facility] I252 Old myocardial infarction Old myocardial infarction Di agnosis 04/03/2020 02:01:00 PM EDT [facility] 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, right ankle and foot Id iopathic gout, right ankle and foot Diagnosis 04/03/2020 02:01:00 PM [facility] Z1321 Encounter for screening for nutritional disorder Encounter for screening for nutritional disorder Diagnosis 02/24/2020 10:04:00 AM [facility] G89.29 Other chronic pain OTHER CHRONIC PAIN Diagnosis 01/2020 10:06:00 AM [facility] M25.511 Pain in right shoulder PAIN IN RIGHT SHOULDER Diagnosi s 02/21/2020 10:06:00 AM [facility] M79.641 Pain in right hand PAIN IN RIGHT HAND Diagnosis 01/2020 10:06:00 AM [facility] R73.09 Other abnormal glucose OTHER ABNORMAL GLUCOSE Diagnosi s 02/21/2020 10:06:00 AM [facility] E03.9 Hypothyroidism, unspecified HYPOTHYROIDISM, UNSPECIFIE D Diagnosis 02/21/2020 10:06:00 AM [facility] E78.5 Hyperlipidemia, unspecified HYPERLIPIDEMIA, UNSPECIFIE D Diagnosis 02/21/2020 10:06:00 AM [facility] I10 Essential (primary) hypertension ESSENTIAL (PRIMARY) H YPERTENSION Diagnosis 02/21/2020 10:06:00 AM [facility] Z00.00 Encounter for general adult medical examination without abnormal findings ENCNTR FOR GENERAL ADULT MEDICAL EXAM W/O ABNORMAL FINDINGS Diagnosis 02/21/2020 10:06:00 AM [facility] U14889 Pain in right hand Pain in right hand Diagnosis 11:17:00 AM [facility] R73.03 Prediabetes PREDIABETES Diagnosis 08/06/2019 11:05:00 AM [facility] I21.9 Acute myocardial infarction, unspecified ACUTE MYOCARDIAL INFARCTION, UNSPECIFIED Diagnosis 08/06/2019 11:05:00 AM [facility] I10 Essential (primary) hypertension ESSENTIAL (PRIMARY) H YPERTENSION Diagnosis 07/25/2019 11:17:00 AM [facility] I25.2 Old myocardial infarction OLD MYOCARDIAL INFARCTION Di agnosis 07/25/2019 11:17:00 AM [facility] R94.31 Abnormal electrocardiogram [ECG] [EKG] A BNORMAL ELECTROCARDIOGRAM [ECG] [EKG] Diagnosis 07/25/2019 11:17:00 AM [facility] R07.9 Chest pain, unspecified CHEST PAIN, UNSPECIFIED Diagno sis 07/25/2019 11:17:00 AM [facility] R079 Chest pain, unspecified Chest pain, unspecified Diagno sis 07/23/2019 10:02:00 AM [facility] Surgeries/Procedures Procedure Description Date Indications Data Source(s) Hospital outpatient clinic visit for assessment and ma nagement of a patient Hospital Outpatient Clinic Visit 06/15/2020 12:00:00 AM [facility] MRI SPINAL CANAL CERVICAL W/O CONTRAST MATRL MRI NECK SPINE W/O DYE 04/09/2020 12:00:00 AM [facility] outpatient clinic visit for assessment and ma nagement of a patient Hospital Outpatient Clinic Visit 02/21/2020 12:00:00 AM [facility] Results ID Date Data Source [id number] 08/02/2020 01:20:00 PM [facility] Name Value Range Interpretation Code Description Data Neelam rce(s) Supporting Document(s) T4 FREE 0.79 ng/dL 0.76 - 1.46 [facility] ital ID Date Data Source [id number] 08/02/2020 01:20:00 PM [facility] Name Value Range Interpretation Code Description Data Neelam rce(s) Supporting Document(s) TSH 5.17 uIU/mL 0.36 - 3.74 Above high normal [facility] ID Date Data Source [id number] 08/02/2020 01:20:00 PM EST [facility] Name Value Range Interpretation Code Description Data Neelam rce(s) Supporting Document(s) COMPREHENSIVE CHEM PROFILE [facility] COMPREHENSIVE METABOLIC PANEL Sodium [Moles/volume] in Serum or Plasma 142 mEq/L 136 - 145 [facility] Potassium [Moles/volume] in Serum or Plasma 4.1 mEq/L 3.5 - 5.1 [facility] Chloride [Moles/volume] in Serum or Plasma 103 mEq/L 98 - 107 [facility] Carbon dioxide, total [Moles/volume] in Serum or Plasma 26.3 mEq /L 21.0 - 32.0 [facility] Glucose [Mass/volume] in Serum or Plasma 157 mg/dL 70 - 100 Above high normal [facility] Urea nitrogen [Mass/volume] in Serum or Plasma 20 mg/dL 7 - 18 Above high normal [facility] CREATININE SERUM 0.81 mg/dL 0.55 - 1.02 [facility] AGE 64 yrs [facility] l HEIGHT 62.00 INCHES [facility] ital eGFR NON-AFR AMR >60 [facility] eGFR AFR AMR >60 [facility] ital BUN/CREAT 25 6 - 25 [facility] l Protein [Mass/volume] in Serum or Plasma 7.9 g/dL 6.0 - 8.3 [facility] Albumin [Mass/volume] in Serum or Plasma 3.6 g/dL 3.8 - 5.4 Below low normal [facility] GLOBULIN 4.3 g/dL 2.0 - 4.0 Above high normal [facility] A/G RATIO 0.8 0.8 - 2.0 [facility] Calcium [Mass/volume] in Serum or Plasma 9.4 mg/dL 8.8 - 10.2 [facility] Bilirubin.total [Mass/volume] in Serum or Plasma 0.4 mg/dL 0.2 - 1.0 [facility] Bilirubin.direct [Mass/volume] in Serum or Plasma 0.1 mg/dL 0.0 - 0. 2 [facility] INDIRECT BILI 0.3 mg/dL 0.0 - 1.1 [facility] pital ALK PHOSPHATASE 96 U/L 35 - 104 [facility] ospital Aspartate aminotransferase [Enzymatic ac tivity/volume] in Serum or Plasma by With P-5'-P 16 IU/L 7 - 37 [facility] Alanine aminotransferase [Enzymatic acti vity/volume] in Serum or Plasma by With P-5'-P 32 IU/L 12 - 78 [facility] ANION GAP 13 7 - 15 [facility] l Estimated GFR referenc e range: >60ml/min/1.73m >18 years: Calculated using IDMS traceable Study Equation <18 years: Calculated using IDMS tracable Bedside Schartz Equation ID Date Data Source [id number] 08/02/2020 01:20:00 PM EST [facility] Name Value Range Interpretation Code Description Data Neelam rce(s) Supporting Document(s) CBC [facility] l COMPLETE BLOOD COUNT Leukocytes [#/volume] in Blood by Automated count 12.7 K/uL 4.0 - 10.0 Above high normal [facility] Erythrocytes [#/volume] in Blood by Automated count 5.03 M/uL 4.00 - 5.40 [facility] Hemoglobin [Mass/volume] in Blood 14.0 g/dL 12.0 - 15.5 [facility] Hematocrit [Volume Fraction] of Blood by Automated count 45.1 % 36.0 - 44.5 Above high normal [facility] Erythrocyte mean corpuscular volume [Entitic volume] by Auto mated count 89.7 fL 80.0 - 96.0 [facility] Erythrocyte mean corpuscular hemoglobin [Entitic mass] by Automated count 27.8 pg 26.0 - 34.0 [facility] Erythrocyte mean corpuscular hemoglobin concentration [Mass/volume] by Automated count 31.0 g/dL 32.0 - 36.0 Below low normal [facility] real Erythrocyte distribution width [Ratio] by Automated count 15.0 % 11.6 - 14.8 Above high normal [facility] Platelets [#/volume] in Blood by Automated count 361 K/uL 150 - 450 [facility] Platelet mean volume [Entitic volume] in Blood by Automated count 9.7 fL 7.1 - 10.4 [facility] Neutrophils [#/volume] in Blood by Automated count 6.58 K/uL 1.70 - 7.70 [facility] Lymphocytes [#/volume] in Blood by Automated count 4.70 K/uL 1.50 - 6.00 [facility] Monocytes [#/volume] in Blood by Automated count 0.83 K/uL 0.00 - 1. 00 [facility] Eosinophils [#/volume] in Blood by Automated count 0.44 K/uL 0.00 - 0.30 Above high normal [facility] Basophils [#/volume] in Blood by Automated count 0.12 K/uL 0.00 - 0.10 Above high normal [facility] 0.07 Urinalysis macro (dipstick) panel - Urine 0.000 10^3/uL 0.000 - 0.012 [facility] Neutrophils/100 leukocytes in Blood by Automated count 51.7 % 42. 2 - 75.2 [facility] Lymphocytes/100 leukocytes in Blood by Automated count 36.9 % 15. 0 - 41.0 [facility] Monocytes/100 leukocytes in Blood by Automated count 6.5 % 0.0 - 12.0 [facility] Eosinophils/100 leukocytes in Blood by Automated count 3.5 % 0.0 - 7.0 [facility] 0.90.50 NRBC 0.0 % [facility] NOT INDICATED [facility] SMEAR REVIEWED, AGREE W/AUTO DIFF RBC MORPH NOT INDICATED [facility] ID Date Data Source [id number] 05/01/2020 03:48:46 PM EDT [facility] Name Value Range Interpretation Code Description Data Neelam rce(s) Supporting Document(s) Progress Note [facility] [id number] lbm [file] [id number] ID Date Data Source [id number] 05/01/2020 06:30:14 PM [facility] Name Value Range Interpretation Code Description Data Neelam rce(s) Supporting Document(s) Leukocytes [#/volume] in Blood by Automated count 11.8 10*3/uL 4-10 H [facility] Erythrocytes [#/volume] in Blood by Automated count 4.89 10*6/uL 4.1- 5.3 [facility] Hemoglobin [Mass/volume] in Blood 13.8 g/dL 11.5-15.5 [facility] Hematocrit [Volume Fraction] of Blood by Automated count 42.7 % 3 6-45 [facility] Erythrocyte mean corpuscular volume [Entitic volume] by Auto mated count 87.2 fL 80-96 [facility] Erythrocyte mean corpuscular hemoglobin [Entitic mass] by Automated count 28.2 pg 27-33 [facility] Erythrocyte mean corpuscular hemoglobin concentration [Mass/volume] by Automated count 32.3 g/dL [facility].0[facility] width [Ratio] by Automated count 14.5 % 11.5-14.5 [facility] Platelets [#/volume] in Blood by Automated count 416 10*3/uL 150-400 H [facility] Differential cell count method - Blood [facility] Neutrophils/100 leukocytes in Blood by Automated count 60 % [facility] Lymphocytes/100 leukocytes in Blood by Automated count 29 % [facility] Monocytes/100 leukocytes in Blood by Automated count 5 % [facility] Eosinophils/100 leukocytes in Blood by Automated count 5 % [facility] Basophils/100 leukocytes in Blood by Automated count 1 % [facility] Neutrophils [#/volume] in Blood by Automated count 7.07 10*3/uL 1.8-7 .0 [facility] Lymphocytes [#/volume] in Blood by Automated count 3.45 10*3/uL 1.2-4 .0 [facility] Monocytes [#/volume] in Blood by Automated count 0.63 10*3/uL 0-0.8 [facility] Eosinophils [#/volume] in Blood by Automated count 0.55 10*3/uL 0-0.5 [facility] Basophils [#/volume] in Blood by Automated count 0.10 10*3/uL 0-0.2 [facility] Nucleated erythrocytes/100 leukocytes [Ratio] in Blood by Automated count 0 /100{WBCs} 0-0 [facility] ID Date Data Source [id number] 05/01/2020 06:46:[address] [facility] Value Range Interpretation Code Description Data Neelam rce(s) Supporting Document(s) Erythrocyte sedimentation rate 53 mm/hr <30 [facility] ID Date Data Source [id number] 05/01/2020 06:55:[address] [facility] Value Range Interpretation Code Description Data Neelam rce(s) Supporting Document(s) Alanine aminotransferase [Enzymatic activity/volume] in Seru m or Plasma 26 U/L <33 [facility] ID Date Data Source [id number] 05/01/2020 06:55:[address] [facility] Value Range Interpretation Code Description Data Neelam rce(s) Supporting Document(s) C reactive protein [Mass/volume] in Serum or Plasma 26.6 mg/L <8.0 [facility] ID Date Data Source [id number] 05/01/2020 06:55:[address] [facility] Value Range Interpretation Code Description Data Neelam rce(s) Supporting Document(s) Aspartate aminotransferase [Enzymatic activity/volume] in Serum or Plasma 49 U/L <32 [facility] ID Date Data Source [id number] 05/01/2020 06:55:54 PM EDT [facility] Name Value Range Interpretation Code Description Data Neelam rce(s) Supporting Document(s) Creatinine [Mass/volume] in Serum or Plasma 0.47 mg/dL 0.50-0.90 L [facility] Glomerular filtration rate/1.73 sq M pre dicted among non-blacks [Volume Rate/Area] in Serum or Plasma by Creatinine-based formula (MDRD) >6 0 [facility] Glomerular filtration rate/1.73 sq M pre dicted among blacks [Volume Rate/Area] in Serum or Plasma by Creatinine-based formula (MDRD) >60 [facility] ID Date Data Source [id number] 04/09/2020 11:12:14 AM [facility] [address] [place] [address] TELEPHONE RADIOLOGY DEPARTMENT Name: [facility] #: [id number] : 1955 Ordering Physician: KELSEY ANGEL Sex: F Date: 04/03/20 Admission Type: O/P X-ray Number: [id number] Unsigned Transcriptions are preliminary reports and do not represent a Medical or Legal Document XRAY SPINE CERVICAL 5V [id number] COMPLETE:04/03/20 16:42 LEI 04864 (SPINE PROCED REASON: MOBILITY CHANGES FINDINGS: Examination of the cervical spine 5 views submitted. Straightening of the normal cervical lordosis. Mild disc height loss at C4-C5. Odontoid process is unremarkable. Facet joints are normally aligned. No significant neural foraminal narrowing. No pre-vertebral soft tissue swelling. No fracture. IMPRESSION: Mild degenerative changes of the cervical spine with degenerative disc disease changes at C4-C5. No fracture. Straightening of the normal cervical lordosis. Electronically Reviewed and Signed By ABNER MENDOZA 04/09/20 11:12 Dictating Initials: BE Transcribed Date: 04/06/20 13:42 Transcribe Initials: LI Name Value Range Interpretation Code Description Data Neelam rce(s) Supporting Document(s) ID Date Data Source [id number] 04/10/2020 12:12:00 PM EDT [facility] Imaging Services Department Imaging Report [address] [place], [place] [address] %(RAD)RES..mtdd.print.filter("line") Name: VITA ANDINO : 1955 Age/Sex: 64F Ordering Provider: Keegan Rivera MD Med Rec #: [id number] Reg Status: DEP REF Room #: Date of Service: 04/09/20 Report Number: [id number] cc:Keegan Rivera MD; Елена Jordan IV, NAHEED Send Report To: [id number] MRI/MRI C Spine No Contrast Reason for exam: CERVICAL RADICULOPATHY FINDINGS: No fracture or dislocation is identified. There is mild to moderate spurring throughout the cervical spine and upper thoracic spine . Decreased T2 signal intensity is noted at the discs from disc desiccation. There is mild disc space narrowing at C4-5. Moderate disc space narrowing at C7-T1 through T4-5. The craniocervical junction is within normal limits. There is mild anterolisthesis of C4/C5 by about 0.3 cm. At C4-5 and C5-6 there are small central disc extrusions with mild canal stenosis. There is moderate to severe bilateral neuroforaminal narrowing at C4-5 due to uncovertebral and facet joint hypertrophy/spurring. The neuroforamen at C5-6 appears to be within normal limits. At C6-7, there is mild posterior spurring with a small central disc extrusion. There is mild canal stenosis. Moderate to severe right and mild left sided neuroforaminal narrowing is present due to uncovertebral and facet joint hypertrophy/spurring. At C7-T1, there is a minimal central disc extrusion without canal stenosis. Theneuroforamen are within normal limits. At T1-2, there is a small central/left paracentral disc extrusion without canal stenosis. The neuroforamen are within normal limits. At T2-3, there is a small to moderate left paracentral disc protrusion without central canal stenosis. The neuroforamen are within normal limits. At T4-5, there is a small right paracentral disc protrusion without canal stenosis. The neuroforamen are within normal limits. The paraspinous soft tissues appear unremarkable. IMPRESSION: No fracture/dislocation. Mild to moderate degenerative disease of cervical spine. Mild anterolisthesis of C4/C5. Multilevel mild canal stenosis with spurs, disc extrusions, ligamentum flavum hypertrophy as described. Neuroforaminal narrowing as described. There are some disc protrusions noted at the upper thoracic spine without canal stenosis. Time portable performed: Fluoroscopy time in seconds: Number of Exposures: Contrast Agent in ml: Method of Administration: REPORT SIGNATURE ON FILE Re ported By: Edvin Dominguez MD <Electronically signed by Edvin Dominguez MD> 04/13/20 1412 Dictation Date/Time: 04/10/20 0749 Transcribed Date/Time: 04/10/20 1212 [employer]: ADONIS Name Value Range Interpretation Code Description Data Neelam rce(s) Supporting Document(s) ID Date Data Source [id number] 02/24/2020 10:50:41 AM EDT [address] [place] [address] TELEPHONE RADIOLOGY DEPARTMENT Name: [facility] #: [id number] : PATBDAY Ordering Physician: NIKKI GAINES Sex: F Date: 02/24/20 Admission Type: O/P X-ray Number: [id number] Unsigned Transcriptions are preliminary reports and do not represent a Medical or Legal Document \\CTNo\\ EKG TRACING ONLY W/O REPORT [id number] COMPLETE:02/24/20 10:40 LEI 67319 (REASON FOR PROCED: ESSENTIAL HYPERTENSION \\CTNx\\ SEE SCANNED EKG REPORT Dictating Initials: CFH Transcribe Date: 02/24/20 10:50 Transcribe Initials: Name Value Range Interpretation Code Description Data Neelam rce(s) Supporting Document(s) ID Date Data Source [id number] 02/24/2020 10:25:00 AM EDT [facility] Value Range Interpretation Code Description Data Neelam rce(s) Supporting Document(s) T3 TOTAL [facility] l _T3 TOTAL_Triiodothyronine (T3)Repo rted: 02/25/2020 14:05 Status=F RESULT FLAG RANGE UNITS SC --Triiodothyronine (T3) 133 71-180 ng/dL RN 02/25/[email or web address] Test performed by: [facility] [address] [place] [id number] Yadi Alex MD ID Date Data Source [id number] 02/24/2020 10:25:00 AM EDT [facility] Name Value Range Interpretation Code Description Data Neelam rce(s) Supporting Document(s) 25-OH VITAMIN D <12.8 ng/mL 30.0 - 100 Below low normal [facility] Deficient < 20 ng/mL Insufficient 20 - < 30 ng/mL Sufficient 30 - 100 ng/mL 25-OH vitamin D reference values based on the Clinical Guidelines Subcommittee of the Endocrine Society Task Force. Biotin can interfere with 25-OH Vitamin D results if taken 48 hours prior to specimen collection. ID Date Data Source [id number] 02/24/2020 10:25:00 AM EDT [facility] Name Value Range Interpretation Code Description Data Neelam rce(s) Supporting Document(s) TSH 9.71 uIU/mL 0.36 - 3.74 Above high normal [facility] Reference range updated for new [employer] technology based chemiluminescent immunoassay method, and age specific ranges. Effective 03/27/18. ID Date Data Source [id number] 02/24/2020 10:25:00 AM EDT [facility] Name Value Range Interpretation Code Description Data Neelam rce(s) Supporting Document(s) Cholesterol [Mass/volume] in Serum or Plasma 195 mg/dL [facility] Triglyceride [Mass/volume] in Serum or Plasma 205 mg/dL [facility] Cholesterol in HDL [Mass/volume] in Serum or Plasma 56 mg/dL [facility] Cholesterol in LDL [Mass/volume] in Serum or Plasma by calculation 98 mg/dL [facility] CHOL/HDL 3.48 [facility] l \\BLDo\\INTERPRE TATION\\BLDx\\ REFERENCE RANGES (NATIONAL CHOLESTEROL EDUCATION PROGRAM) CHOLESTEROL < 200 mg/dL DESIREABLE 200 - 239 mg/dL BORDERLINE HIGH > 240 mg/dL HIGH TRIGLYCERIDES < 150 mg/dL DESIREABLE 150 - 199 mg/dL BORDERLINE HIGH 200 - 499 mg/dL HIGH > or = 500 mg/dL VERY HIGH HDL > or = 60 mg/dL HIGH < 40 mg/dL LOW LDL < 100 mg/dL DESIREABLE 100 - 129 mg/dL LOW RISK 130 - 159 mg/dL BORDERLINE HIGH 160 - 189 mg/dL HIGH > or = 190 mg/dL VERY HIGH ID Date Data Source [id number] 02/24/2020 10:25:00 AM EDT [facility] Name Value Range Interpretation Code Description Data Neelam rce(s) Supporting Document(s) COMPREHENSIVE CHEM PROFILE i [facility] COMPREHENSIVE METABOLIC PANEL Sodium [Moles/volume] in Serum or Plasma 136 mEq/L 136 - 145 [facility] Potassium [Moles/volume] in Serum or Plasma 4.3 mEq/L 3.5 - 5.1 [facility] Chloride [Moles/volume] in Serum or Plasma 102 mEq/L 98 - 107 [facility] Carbon dioxide, total [Moles/volume] in Serum or Plasma 24.8 mEq /L 21.0 - 32.0 [facility] Glucose [Mass/volume] in Serum or Plasma 109 mg/dL 70 - 100 Above high normal [facility] Urea nitrogen [Mass/volume] in Serum or Plasma 12 mg/dL 7 - 18 [facility] CREATININE SERUM 0.81 mg/dL 0.55 - 1.02 [facility] AGE 64 yrs [facility] HEIGHT NA [facility] l eGFR NON-AFR AMR >60 [facility] eGFR AFR AMR >60 [facility] ital BUN/CREAT 15 6 - 25 [facility] l Protein [Mass/volume] in Serum or Plasma 8.3 g/dL 6.0 - 8.3 [facility] Albumin [Mass/volume] in Serum or Plasma 4.0 g/dL 3.8 - 5.4 [facility] GLOBULIN 4.3 g/dL 2.0 - 4.0 Above high normal [facility] A/G RATIO 0.9 0.8 - 2.0 [facility] Calcium [Mass/volume] in Serum or Plasma 9.4 mg/dL 8.8 - 10.2 [facility] Bilirubin.total [Mass/volume] in Serum or Plasma 0.5 mg/dL 0.2 - 1.0 [facility] Bilirubin.direct [Mass/volume] in Serum or Plasma 0.1 mg/dL 0.0 - 0. 2 [facility] INDIRECT BILI 0.4 mg/dL 0.0 - 1.1 [facility] pital ALK PHOSPHATASE 92 U/L 35 - 104 [facility] ospital Aspartate aminotransferase [Enzymatic ac tivity/volume] in Serum or Plasma by With P-5'-P 25 IU/L 7 - 37 [facility] Alanine aminotransferase [Enzymatic acti vity/volume] in Serum or Plasma by With P-5'-P 19 IU/L 12 - 78 [facility] ANION GAP 9 7 - 15 [facility] l Estimated GFR referenc e range: >60ml/min/1.73m >18 years: Calculated using IDMS traceable Study Equation <18 years: Calculated using IDMS tracable Bedside Schartz Equation ID Date Data Source [id number] 02/24/2020 10:25:00 AM EDT [facility] Name Value Range Interpretation Code Description Data Neelam rce(s) Supporting Document(s) T4 FREE 0.74 ng/dL 0.76 - 1.46 Below low normal [facility] Reference range updated for n ew LOCI technology based chemiluminescent immunoassay method, and age specific ranges.Effective 03/27/18. ID Date Data Source [id number] 02/24/2020 10:25:00 AM EDT [facility] Name Value Range Interpretation Code Description Data Neelam rce(s) Supporting Document(s) CBC [facility] COMPLETE BLOOD COUNT Leukocytes [#/volume] in Blood by Automated count 10.6 K/uL 4.0 - 10.0 Above high normal [facility] Erythrocytes [#/volume] in Blood by Automated count 4.98 M/uL 4.00 - 5.40 [facility] Hemoglobin [Mass/volume] in Blood 14.3 g/dL 12.0 - 15.5 [facility] Hematocrit [Volume Fraction] of Blood by Automated count 44.2 % 3 6.0 - 44.5 [facility] Erythrocyte mean corpuscular volume [Entitic volume] by Auto mated count 88.8 fL 80.0 - 96.0 [facility] Erythrocyte mean corpuscular hemoglobin [Entitic mass] by Automated count 28.7 pg 26.0 - 34.0 [facility] Erythrocyte mean corpuscular hemoglobin concentration [Mass/volume] by Automated count 32.4 g/dL 32.0 - 36.0 [facility] Erythrocyte distribution width [Ratio] by Automated count 13.6 % 11.6 - 14.8 [facility] Platelets [#/volume] in Blood by Automated count 345 K/uL 150 - 450 [facility] Platelet mean volume [Entitic volume] in Blood by Automated count 9.9 fL 7.1 - 10.4 [facility] Neutrophils [#/volume] in Blood by Automated count 6.01 K/uL 1.70 - 7.70 [facility] Lymphocytes [#/volume] in Blood by Automated count 3.28 K/uL 1.50 - 6.00 [facility] Monocytes [#/volume] in Blood by Automated count 0.60 K/uL 0.00 - 1. 00 [facility] Eosinophils [#/volume] in Blood by Automated count 0.58 K/uL 0.00 - 0.30 Above high normal [facility] Basophils [#/volume] in Blood by Automated count 0.07 K/uL 0.00 - 0. 10 [facility] 0.05 Urinalysis macro (dipstick) panel - Urine 0.000 10^3/uL 0.000 - 0.012 [facility] Neutrophils/100 leukocytes in Blood by Automated count 56.6 % 42. 2 - 75.2 [facility] Lymphocytes/100 leukocytes in Blood by Automated count 31.0 % 15. 0 - 41.0 [facility] Monocytes/100 leukocytes in Blood by Automated count 5.7 % 0.0 - 12.0 [facility] Eosinophils/100 leukocytes in Blood by Automated count 5.5 % 0.0 - 7.0 [facility] 0.70.50 NRBC 0.0 % [facility] MANUAL DIFF NOT INDICATED [facility] RBC MORPH NOT INDICATED [facility] ID Date Data Source [id number] 01/16/2020 08:08:34 [place] [address] TELEPHONE RADIOLOGY DEPARTMENT Name: [facility] #: [id number] : 1955 Ordering Physician: NIKKI GAINES Sex: F Date: 01/08/20 Admission Type: O/P X-ray Number: [id number] Unsigned Transcriptions are preliminary reports and do not represent a Medical or Legal Document XRAY SHOULDER RIGHT MIN 2 VIE [id number] COMPLETE: 01/08/20 11:53 LEI 21709 (REASON FOR PROCESS: ACUTE PAIN FINDINGS: Internal and external rotation views of the right shoulder and axillary views demonstrate no acute fracture, subluxation, dislocation or focal osseous lesion. Mineralization is within normal limits. There is osteophytosis of the humeral head. There are hypertrophic degenerative changes of the acromioclavicular joint. IMPRESSION: Degenerative changes of the right shoulder without evidence of acute osseous pathology. Electronically Reviewed and Signed By OLIVA RAPHAEL MD, MD 01/16/20 20:08 Dictating Initials: PILY Transcribed Date: 01/08/20 17:38 Transcribe Initials: LI Name Value Range Interpretation Code Description Data Neelam rce(s) Supporting Document(s) ID Date Data Source [id number] 01/16/2020 08:06:43 PM EDT [facility] [address] [place] [address] TELEPHONE RADIOLOGY DEPARTMENT Name: [facility] #: [id number] : 1955 Ordering Physician: NIKKI GAINES Sex: F Date: 01/08/20 Admission Type: O/P X-ray Number: [id number] Unsigned Transcriptions are preliminary reports and do not represent a Medical or Legal Document XRAY HAND AP & LAT RIGHT [id number] COMPLETE:01/08/20 11:53 LEI 19262 (REASON FOR PROCESS: PAIN FINDINGS: AP and lateral views of the right hand were obtained with a compression plate and screw assembly traversing the distal radius. There's no evidence of acute fracture or subluxation on this location. Mineralization is within normal limits. There are degenerative changes of the distal interphalangeal joints in a manner that consists with osteoarthritis. IMPRESSION: Multiple degenerative changes. Osteoarthritis of the distal interphalangeal joints. No evidence of acute osseous pathology. Electronically Reviewed and Signed By OLIVA RAPHAEL MD, MD 01/16/20 20:06 Dictating Initials: IW Transcribed Date: 01/08/20 17:49 Transcribe Initials: LI Name Value Range Interpretation Code Description Data Neelam rce(s) Supporting Document(s) ID Date Data Source [id number] 11/02/2019 05:16:36 PM EDT [facility] Name Value Range Interpretation Code Description Data Neelam rce(s) Supporting Document(s) Progress Note [facility] TMHQTu4wBbZYVsIo89/QTKssODNgn0QdLRzxQSc4JUnbMXSqO7UmIBF9aO0gOSL7KZgQZyPlOeDlPYJ3 lbm [file] Wn8Y/D4Mn0bHhAvN4MHke5iL2v8pMBk3+GHpIZusoLZzLg4XUGZ2CWjXu3CQzQOI7Ts06Bt3nwqk+Nunakauyarmiut Evdh76wTvSd1edOXWc1s64Qgzmb+uJf3u7355eHb+J6Zxqo/qK6ci+M/tXk46+oC/ihod63meoa0MZpB 96RnkRieO/aUm54ls2x8zm5tFfKeaP7yok7nfW5qKx CfJYjRodYo64RoG1OIiQ65E6nnde88EcZ7ijm35gsGLicXjAHOq6ACF1GH/D03W/ooSOcTNBO3m+8AWw g9q24dgJ15jkrmpKnuSHBw4I3hEDx0eccBbC+oWBh8d6H4tl2ywBSqeqADLVd7OviQBddHgMCL0bWtpO QVNmBq5RNya8fMF7i9GQT2c+5fC1CUqAqw+dwDgOqA 7HT1SO+hmp0a2MP16T5O270IQ/qllRG0otmnQUnYO/DMZxGMkj6niexEFR+JcKtarD2J9qUjklT6Ml+z aqcD73WJ2MxF/yk+PVnUYwb32jxU8TsxT/Txgi3fHA28mrcs4GHVg059nP0BUoAC4Vcdczuaqox8XuW/ +I2zK/Mt+iBMTheogonmU0kxeBdA9AA3zvlQ1c8z2b Lh3B+wWZpOwvA76vWcl3Sxyiqmo418rZjml2POvX2notitg9PNPI9w1UINqzn/8j1Pp8u9S/QnXwDgbU YgTJmx3sz8xsSxtoOtV27dkv9sCb9UI3imtOqdt8IcnSK1QTGg0JaoTY/skT+[employer] Aide+L/pvsvF26jLfEhx+ [file] Z+J9dvy/eniJf/winder fixer/Ozv/vTv/O0//Fu3/+Bv/uT3/4Pf+/GPfviD3/3+937nt9/37a8757n/469/65vf ePedt2+9dfPGb/61r3/tzTcOrn/1K6+/3peEE327Bi 9+7DNfq8i6K459kF7m7dewkjD0wrxsb2gHY4jsBVA/LB9+nX6xM8ZGb5hEE83wJ+2/dE8quKoxW8q7i8 khSDn649e/0OrUlnGdnQheZauTHFjdowy5KM49nfyWp0+6Qf75nAOQ+pzXWnd1+ZTCBbq4IhildurMe+ z5O7r/Ktrd3K8gtu+heHd+lE96wEr7cfqEHQ+/v3XH xYtzT/3RgR/Vna6AV6r3J8vC0/J530nIuNr9I1/1jcqHas9KO1O+/pc8b7chI37985xJF5dY4kasOMxH 186WrhzF/6++t08n23s09Z8m+a35/Vc5fj6kR17/0ItlT5y43V5F542b2loR7r9koshl0Q3iz2pNdv/u mIdI7RN2dx2WK95p267+6gxGzvn1m//z167/YsktPX XjyYM79/my67+c+dsLkPrwK2PAi9l1vT4rwtY+yjXX7vi+gy3KGMyrhFst/tQpHdvgT16we01rudLHzU aJT8s65ODlWAqY1VL7GR/Xr/Jfe5u3h9NB565/OLff38/7f6IHilg9uYlWf/nz+oG+w0A0hej550t4Fw Mez2ey0HrmbK4zxrD+jeHPX2+6fv2N6//Bn0MkFyaa O3oy/Fh0aGf1ri97y1wh50zDHdas8TBi8pkKztBKuEygb59N+69eDzVvbHmOfPrhhwJHzK/vwqB0a6Xw EgTvbFskzt1rq5qXo+nw0msT9AL7/IRnpjNXnru1+8yNUMMzt///nM+03IU1uvK4bor6o/s3ipIhgrqw XXQxfErNL65qqPgxqH6tc/QxP14Nhv83sekcj89zdP keane+8eifosCylxIZzs3diXRby/KV018mHa8Et4g+y9d/3eEhgr0Fxus/q7aM1p7b5y2guQ88cD5kaLPiQ [file] WytbW9ccFdNMs3LUqfEC8VJFZDV9ZFJq== ID Date Data Source [id number] 07/23/2019 10:05:00 AM EST [facility] Name Value Range Interpretation Code Description Data Neelam rce(s) Supporting Document(s) Magnesium [Mass/volume] in Serum or Plasma 1.8 mg/dL 1.8 - 2.4 [facility] ID Date Data Source [id number] 07/23/2019 10:05:00 AM EST [facility] Name Value Range Interpretation Code Description Data Neelam rce(s) Supporting Document(s) Cholesterol [Mass/volume] in Serum or Plasma 250 mg/dL [facility] Triglyceride [Mass/volume] in Serum or Plasma 219 mg/dL [facility] Cholesterol in HDL [Mass/volume] in Serum or Plasma 57 mg/dL [facility] Cholesterol in LDL [Mass/volume] in Serum or Plasma by calculati on 149 mg/dL [facility] CHOL/HDL 4.39 [facility] l \\BLDo\\INTERPRE TATION\\BLDx\\ REFERENCE RANGES (NATIONAL CHOLESTEROL EDUCATION PROGRAM) CHOLESTEROL < 200 mg/dL DESIREABLE 200 - 239 mg/dL BORDERLINE HIGH > 240 mg/dL HIGH TRIGLYCERIDES < 150 mg/dL DESIREABLE 150 - 199 mg/dL BORDERLINE HIGH 200 - 499 mg/dL HIGH > or = 500 mg/dL VERY HIGH HDL > or = 60 mg/dL HIGH < 40 mg/dL LOW LDL < 100 mg/dL DESIREABLE 100 - 129 mg/dL LOW RISK 130 - 159 mg/dL BORDERLINE HIGH 160 - 189 mg/dL HIGH > or = 190 mg/dL VERY HIGH ID Date Data Source [id number] 07/23/2019 10:05:00 AM EST [facility] Name Value Range Interpretation Code Description Data Neelam rce(s) Supporting Document(s) COMPREHENSIVE CHEM PROFILE [facility] COMPREHENSIVE METABOLIC PANEL Sodium [Moles/volume] in Serum or Plasma 140 mEq/L 136 - 145 [facility] Potassium [Moles/volume] in Serum or Plasma 3.9 mEq/L 3.5 - 5.1 [facility] Chloride [Moles/volume] in Serum or Plasma 103 mEq/L 98 - 107 [facility] Carbon dioxide, total [Moles/volume] in Serum or Plasma 26.3 mEq /L 21.0 - 32.0 [facility] Glucose [Mass/volume] in Serum or Plasma 96 mg/dL 70 - 100 [facility] Urea nitrogen [Mass/volume] in Serum or Plasma 20 mg/dL 7 - 18 Above high normal [facility] CREATININE SERUM 0.89 mg/dL 0.55 - 1.02 [facility] AGE 63 yrs [facility] HEIGHT NA [facility] eGFR NON-AFR AMR >60 [facility] eGFR AFR AMR >60 [facility] BUN/CREAT 22 6 - 25 [facility] Protein [Mass/volume] in Serum or Plasma 8.1 g/dL 6.0 - 8.3 [facility] Albumin [Mass/volume] in Serum or Plasma 3.7 g/dL 3.8 - 5.4 Below low normal [facility] GLOBULIN 4.4 g/dL 2.0 - 4.0 Above high normal [facility] A/G RATIO 0.8 0.8 - 2.0 [facility] Calcium [Mass/volume] in Serum or Plasma 9.6 mg/dL 8.8 - 10.2 [facility] Bilirubin.total [Mass/volume] in Serum or Plasma 0.5 mg/dL 0.2 - 1.0 [facility] Bilirubin.direct [Mass/volume] in Serum or Plasma 0.1 mg/dL 0.0 - 0. 2 [facility] INDIRECT BILI 0.4 mg/dL 0.0 - 1.1 [facility] pital ALK PHOSPHATASE 90 U/L 35 - 104 [facility] ospital Aspartate aminotransferase [Enzymatic ac tivity/volume] in Serum or Plasma by With P-5'-P 17 IU/L 7 - 37 [facility] Alanine aminotransferase [Enzymatic acti vity/volume] in Serum or Plasma by With P-5'-P 24 IU/L 12 - 78 [facility] ANION GAP 15 5 - 15 [facility] l Estimated GFR referenc e range: >60ml/min/1.73m >18 years: Calculated using IDMS traceable Study Equation <18 years: Calculated using IDMS tracable Bedside Schartz Equation ID Date Data Source [id number] 07/02/2019 12:50:00 PM [facility] Name: VITA ANDINO : [birth year] Age/Sex: 63F Ordering Provider: Jj Michelle MD Med Rec #: [id number] Reg Status:[facility] Room #: Date of Service: 07/02/19 Report Number: [id number] cc: Jj Michelle MD; Елена Jordan IV, RNP Send Report To: Echocardiogram Complete Ordering Phys: JJ MICHELLE MD, Referring Phys: JJ MICHELLE MD, Exam Location: Echo Lab Exam Date: 07/02/2019 12:59 Indications: CHEST PAIN. OP BP 136 / 90 Rhythm: Technical Quality: Poor Contrast: Total Dose (mL): MEASUREMENTS (Male / Female) Normal Values 2D ECHO Measurement LV Diastolic Diameter PLAX 4.2 cm 4.2 - 6.0 / 3.9 - 5.4 cm LV Systolic Diameter PLAX 2.9 cm 2.1 - 4.0 cm IVS Diastolic Thickness 0.96 cm 0.6 - 1.1 / 0.6 - 1.0 cm LVPW Diastolic Thickness 0.93 cm 0.6 - 1.1 / 0.6 - 1.0 LV Relative Wall Thickness 0.45 Aortic Root Diameter 3.1 cm Aortic Root Diameter Index 1.5 cm/m2 LA Systolic Diameter LX 3.8 cm 3.0 - 4.1 / 2.7 - 3.9 cm LA Volume Index 22.4 cm3/m2 16 - 28 cm3/m2 Ascending Aorta Diameter 2.9 cm DOPPLER Measurement AV Peak Velocity 194 cm/s AV Peak Gradient 15 mmHg LVOT Peak Velocity 143 cm/s LVOT Peak Gradient 8.1 mmHg Mitral E Point Delmar ocity 77.9 cm/s Mitral A Point Velocity 115 cm/s Mitral E to A Ratio 0.69 MV Area PHT 2.7 cm2 MV Deceleration Time 280 ms TR Peak Velocity 162 cm/s TR Peak Gradient 10.2 mmHg Right Atrial Pressure 3 mmHg Pulmonary Artery Systolic Pressu 13.5 mmHg Right Ventricular Systolic Press 13.2 mmHg PV Peak Velocity 124 cm/s PV Peak Gradient 6.1 mmHg Mitral E to LV E' Lateral Ratio 9.9 LV E' Septal Velocity 6.6 cm/s Mitral E to LV E' Septal Ratio 11.7 FINDINGS Left Ventricle: Ejection fraction is estimated at 60%. Mild basal septal hypertrophy without subvalvular gradient and grade I diastolic dysfunction. Right Ventricle: Mildly dilated right ventricular size and normal systolic function. Right Atrium: Normal right atrial size. IVC not well visualized. Left Atrium: Mildly dilated LA (4.0cm) Mitral Valve: Trace anteriorly directed mitral regurgitation. Aortic Valve: Diffuse thickening (sclerosis) of the aortic valve cusps without reduced excursion. Tricuspid Valve: Trace tricuspid regurgitation. Right ventricular systolic pressure is approximately 13.5 mmHg. Pulmonic Valve: Pulmonic valve not well visualized. Mild pulmonary regurgitation (normal variant). Pericardium: Normal pericardium. Aorta: Normal size aortic root and proximal ascending aorta. CONCLUSIONS 1) Ejection fraction is estimated at 60%. Mild basal septal hypertrophy without subvalvular gradient and grade I diastolic dysfunction. 2) Mildly dilated right ventricular size and normal systolic function. No evidence for pulmonary hypertension with normal PASP. 3) Mild LAE with trace anteriorly directed MR. REPORT SIGNATURE ON FILE 07/03/19 1104 Reported By: Jj Michelle MD <Electronically signed by Jj Michelle MD in [place]> Exam Date/Time: 07/02/19 1250 Order #: [id number] Dictation Date/Time: 07/02/19 1259 Transcribed Date/Time: [employer]: Name Value Range Interpretation Code Description Data Neelam rce(s) Supporting Document(s) Procedure Social History Code Duration Value Status Description Data Source(s ) Alcohol intake 05/01/2020 12:00:00 AM EDT Current non-d deric of alcohol (finding) completed Current non-drinker of alcohol (finding) [facility] Tobacco use and exposure 05/01/2020 12:00:00 AM EDT Never used co mpleted Never used [facility] Smoking 05/01/2020 12:00:00 AM EDT Never smoker completed Never s [facility] Alcohol intake 11/01/2019 12:00:00 AM EDT Current non-d deric of alcohol (finding) completed Current non-drinker of alcohol (finding) [facility] Smoking 11/01/2019 12:00:00 AM EDT Never smoker completed Never s [facility] Vital Signs ID Date Data Source UNK Name Value Range Interpretation Code Description Data Source(s) Body weight 94.80 kg 94.80 kg [facility] Body temperature 36.0 Ann 36.0 Ann [facility] Respiratory rate 18 /min 18 /min [facility] Heart rate 93.0 /min 93.0 /min [facility] Oxygen saturation in Arterial blood by Pulse oximetry 100 % 100 % [facility] Body height 157.4800 cm 157.4800 cm [facility] Body surface area Derived from formula 2.04 m2 2.04 m2 [facility] Diastolic blood pressure 100 mm[Hg] 100 mm[Hg] [facility] Systolic blood pressure 158 mm[Hg] 158 mm[Hg] [facility] Body mass index (BMI) [Ratio] 38.23 kg/m2 38.23 kg/m2 [facility] Body weight 96.16 kg 96.16 kg [facility] Body height 157.4800 cm 157.4800 cm [facility] Body surface area Derived from formula 2.05 m2 2.05 m2 [facility] Body mass index (BMI) [Ratio] 38.77 kg/m2 38.77 kg/m2 [facility] ID Date Data Source [id number] 05/01/2020 06:56:02 PM EDT [facility] Name Value Range Interpretation Code Description Data Source(s) WEIGHT RECORDED 211.8 lb 211.8 lb [facility] Body height Measured 64.02 in 64.02 in [facility] Patient Treatment Plan of Care Planned Activity Planned Date Details Description Data Source (s) Ibuprofen 800 MG Oral Tablet 07/13/2020 12:00:00 AM [facility] Amlodipine 10 MG Oral Tablet 05/29/2020 12:00:00 AM [facility] 24 HR metoprolol succinate 25 MG Extended Release Oral Tablet 05/29/2020 12:00:00 AM [facility] l Lisinopril 20 MG Oral Tablet 05/29/2020 12:00:00 AM [facility] Levothyroxine Sodium 0.075 MG Oral Tablet 05/29/2020 12:00:00 AM [facility] Allopurinol 300 MG Oral Tablet 05/29/2020 12:00:00 AM [facility] Azithromycin 250MG Oral Tablet 05/29/2020 12:00:00 AM [facility] Ergocalciferol 71061 UNT Oral Capsule 05/29/2020 12:00:00 AM [facility] 24 HR metoprolol succinate 25 MG Extended Release Oral Tablet 05/29/2020 12:00:00 AM [facility] l Lisinopril 20 MG Oral Tablet 05/29/2020 12:00:00 AM [facility] Levothyroxine Sodium 0.075 MG Oral Tablet 05/29/2020 12:00:00 AM [facility] Allopurinol 300 MG Oral Tablet 05/29/2020 12:00:00 AM [facility] Azithromycin 250MG Oral Tablet 05/29/2020 12:00:00 AM [facility] Diclofenac Sodium 0.01 MG/MG Topical Gel [Voltaren] 05/29/20 20 12:00:00 AM [facility] Ergocalciferol [id number] UNT Oral Capsule 05/29/2020 12:00:00 AM [facility] Amlodipine 10 MG Oral Tablet 05/29/2020 12:00:00 AM [facility] 200 ACTUAT Albuterol 0.09 MG/ACTUAT Metered Dose Inhal er [Ventolin] [facility] Al[facility]ol 0.09 MG/ACTUAT Metered Dose Inhal er [Ventolin] 05/13/2020 12:00:00 AM [facility] Prednisone 5 MG Oral Tablet 05/01/2020 12:00:00 AM [facility] Humira 40 MG/0.4ML Subcutaneous Prefilled Syringe Kit (adalimumab) 04/30/2020 12:00:00 AM [facility] tramadol hydrochloride 50 MG Oral Tablet 04/27/2020 12:00:00 AM [facility] meloxicam 15 MG Oral Tablet 04/03/2020 12:00:00 AM [facility] Adalimumab 40 MG/0.4ML Subcutaneous Pen-injector Kit ( Humira Pen) 11/01/2019 12:00:00 AM [facility]spital 0.8 ML adalimumab 50 MG/ML Prefilled Syringe [Humira] 08/30/2019 12:00:00 AM [facility] Simvastatin 40 MG Oral Tablet 06/19/2019 12:00:00 AM [facility] 0.8 ML adalimumab 50 MG/ML Auto-Injector 11/01/2017 12:00:00 AM [facility]
[2020-08-02] MEDS ORDERED: LISI20TA33 PO (22:53)
[2020-08-02] MEDS ORDERED: LEVO100T5 PO (22:57)
[2020-08-02] MEDS ORDERED: VENTAER INH (23:04)
[2020-08-02] MEDS ORDERED: ISOVUE-370 76% 100ML VIAL As Ordered ONE (23:04)
[2020-08-02] MEDS ORDERED: AMLO1TAB25 PO (23:04)
[2020-08-02] MEDS ORDERED: VITA50005 PO (23:04)
[2020-08-02] MEDS ORDERED: PRED5TA PO (23:04)
[2020-08-02] MEDS ORDERED: METF500T13 PO (23:04)
[2020-08-02] MEDS ORDERED: METO1TAB32 PO (23:04)
[2020-08-02] MEDS ORDERED: METO25TA4 PO (23:32)
[2020-08-02] MEDS ORDERED: ALLO10TA PO (23:32)
[2020-08-02] MEDS ORDERED: PRED20TA PO (23:32)
[2020-08-02] MEDS ORDERED: IBUP-1022 PO (23:33)
--- OUTSIDE RECORDS SUMMARY | 2020-08-02 23:51 | CCD ---
Author Author [facility] Organization [facility] Address Unknown Phone Unavailable Care Team Providers Care Engineering Mathematician Name Role Phone Mack, L Karena CIVIL CELEBRANT Unavailable + Mack, L Karena CIVIL CELEBRANT Unavailable + Mack, L Karena CIVIL CELEBRANT Unavailable + Mack, L Karena CIVIL CELEBRANT Unavailable + Mack, L Karena CIVIL CELEBRANT Unavailable + Mack, L Karena CIVIL CELEBRANT Unavailable + Mack, L Karena CIVIL CELEBRANT Unavailable + Mack, L Karena CIVIL CELEBRANT Unavailable + Mack, L Karena CIVIL CELEBRANT Unavailable + Mack, L Karena CIVIL CELEBRANT Unavailable + Mack, L Karena CIVIL CELEBRANT Unavailable + Mack, L Karena CIVIL CELEBRANT Unavailable + Mack, L Karena CIVIL CELEBRANT Unavailable + Mack, L Karena CIVIL CELEBRANT Unavailable + Mack, L Karena CIVIL CELEBRANT Unavailable + Mack, L Karena CIVIL CELEBRANT Unavailable + Mack, L Karena CIVIL CELEBRANT Unavailable + Mack, L Karena CIVIL CELEBRANT Unavailable + Mack, L Karena CIVIL CELEBRANT Unavailable + Mack, L Karena CIVIL CELEBRANT Unavailable + Mack, L Karena CIVIL CELEBRANT Unavailable + Ranjeet Barfield MD Unavailable Unavailable [...] Unavailable Nunez-RaineRanjeet borden MD Unavailable Unavailable Nunez-RaineRanjeet obrden MD Unavailable Unavailable Nunez-RaineRanjeet MD Unavailable Unavailable [...] Unavailable Laureen Fry MD Unavailable Unavailable Laureen rFy MD Unavailable Unavailable Laureen Fry MD Unavailable [...] MD Unavailable Unavailable Galilea Michelle MD Unavailable [phone] Galilea Michelle MD Unavailable [phone] Galilea Michelle MD Unavailable [phone] Galilea Michelle MD Unavailable [phone] Galilea Michelle MD Unavailable [phone] Galilea Michelle MD Unavailable [phone] NIKKI IV, L ЕЛЕНА LEAD ELECTRICAL CONTROLS ENGINEER Unavailable Unavailable NIKIK IV, L ЕЛЕНА LEAD ELECTRICAL CONTROLS ENGINEER Unavailable Unavailable NIKKI IV, L ЕЛЕНА LEAD ELECTRICAL CONTROLS ENGINEER Unavailable Unavailable NIKKI IV, L ЕЛЕНА LEAD ELECTRICAL CONTROLS ENGINEER Unavailable Unavailable NIKKI IV, L ЕЛЕНА LEAD ELECTRICAL CONTROLS ENGINEER Unavailable Unavailable NIKKI IV, L ЕЛЕНА LEAD ELECTRICAL CONTROLS ENGINEER Unavailable Unavailable NIKKI IV, L ЕЛЕНА LEAD ELECTRICAL CONTROLS ENGINEER Unavailable Unavailable NIKKI IV, L ЕЛЕНА LEAD ELECTRICAL CONTROLS ENGINEER Unavailable Unavailable NIKKI IV, L ЕЛЕНА LEAD ELECTRICAL CONTROLS ENGINEER Unavailable Unavailable NIKKI IV, L ЕЛЕНА LEAD ELECTRICAL CONTROLS ENGINEER Unavailable Unavailable NIKKI IV, L ЕЛЕНА LEAD ELECTRICAL CONTROLS ENGINEER Unavailable Unavailable NIKKI IV, L ЕЛЕНА LEAD ELECTRICAL CONTROLS ENGINEER Unavailable Unavailable NIKKI IV, L ЕЛЕНА LEAD ELECTRICAL CONTROLS ENGINEER Unavailable Unavailable NIKKI IV, L ЕЛЕНА LEAD ELECTRICAL CONTROLS ENGINEER Unavailable Unavailable NIKIK IV, L ЕЛЕНА LEAD ELECTRICAL CONTROLS ENGINEER Unavailable Unavailable NIKKI IV, L ЕЛЕНА LEAD ELECTRICAL CONTROLS ENGINEER Unavailable Unavailable NIKKI IV, L ЕЛЕНА LEAD ELECTRICAL CONTROLS ENGINEER Unavailable Unavailable NIKKI IV, L ЕЛЕНА LEAD ELECTRICAL CONTROLS ENGINEER Unavailable Unavailable NIKKI IV, L ЕЛЕНА LEAD ELECTRICAL CONTROLS ENGINEER Unavailable Unavailable NIKKI IV, L ЕЛЕНА LEAD ELECTRICAL CONTROLS ENGINEER Unavailable Unavailable NIKKI IV, L ЕЛЕНА LEAD ELECTRICAL CONTROLS ENGINEER Unavailable Unavailable NIKKI IV, L ЕЛЕНА LEAD ELECTRICAL CONTROLS ENGINEER Unavailable Unavailable NIKKI IV, L ЕЛЕНА LEAD ELECTRICAL CONTROLS ENGINEER Unavailable Unavailable NIKKI IV, L ЕЛЕНА LEAD ELECTRICAL CONTROLS ENGINEER Unavailable Unavailable NIKKI IV, L ЕЛЕНА LEAD ELECTRICAL CONTROLS ENGINEER Unavailable Unavailable NIKKI IV, L ЕЛЕНА LEAD ELECTRICAL CONTROLS ENGINEER Unavailable Unavailable NIKKI IV, L ЕЛЕНА LEAD ELECTRICAL CONTROLS ENGINEER Unavailable Unavailable NIKKI IV, L ЕЛЕНА LEAD ELECTRICAL CONTROLS ENGINEER Unavailable Unavailable NIKKI IV, L ЕЛЕНА LEAD ELECTRICAL CONTROLS ENGINEER Unavailable Unavailable NIKKI IV, L ЕЛЕНА LEAD ELECTRICAL CONTROLS ENGINEER Unavailable Unavailable NIKKI IV, L ЕЛЕНА LEAD ELECTRICAL CONTROLS ENGINEER Unavailable Unavailable NIKKI IV, L ЕЛЕНА LEAD ELECTRICAL CONTROLS ENGINEER Unavailable Unavailable Sorge, C Keegan MD Unavailable [...] K LAUREN PA Unavailable Unavailable MEZA, K LAURNE PA Unavailable Unavailable MEZA, K LAUREN PA [...] MD Unavailable Unavailable Елена Aydin Nikki, IV CIVIL CELEBRANT Unavailable Unavailable Re-disclosure Warning The records that [...] is protected by Article 27-F of the [facility] Public Health law. If you continue you may have access to information: Regarding HIV / AIDS; Provided by facilities licensed or operated by the [facility] Office of Mental Health; or Provided by the [facility] Office for People With Developmental Disabilities. If such information is present, then the following [facility] mandated warning applies: This information has been [...] law may result in a fine or fdc sentence or both. A general authorization for the release of medical or other information is NOT sufficient authorization for further disc losure. Allergies and Adverse Reactions Type Description Substance Reaction Status Data Source(s ) Environmental Allergy BEE STING BEE STING ANAPHYLAXIS UNKNOWN [facility] Drug allergy REMICADE REMICADE [facility] Drug allergy LEVAQUIN LEVAQUIN [facility] Drug allergy IODINE IODINE [facility] Drug allergy CODEINE CODEINE [facility] Miscellaneous allergy No Known Food Allergies No Known Food Allergies [facility] Drug allergy ZITHROMAX ZITHROMAX Redness MODERATE [facility] Encounters Encounter Providers Location Date Indications Data Source(s ) Outpatient Attender: Ranjeet Barfield MD 10/30/2020 12:00:00 AM [facility] Emergency Attender: LAUREN BREENd mitter: LAUREN MEZA PAConsultant: Keegan Rivera MD [phone] 08/02/2020 11:56:00 AM EST - 08/02/2020 09:45:00 PM EST LEFT SIDE IS NUMB [facility] LEFT SIDE IS NUMB Patient discharged. Outpatient Attender: FRANCISCO Rizomitter: FRANCISCO CONCEPCION MDReferrer: FRANCISCO CONCEPCION MDConsultant: Keegan Rivera MD 2019 03:01:00 PM EST - 07/13/2020 03:40:00 PM EST Health check up [facility] Health check up Patient discharged. Outpatient Attender: Brandt Davidson MD CPSCAORT-CPSCAORT 02:06:00 PM EST - 06/15/2020 02:07:00 PM EST [facility] Patient discharged. Outpatient Attender: Keegan Torres mitter: Keegan Rivera MDReferrer: Keegan Rivera MDConsultant: Keegan Rivera MD 06/01/2020 10:04: 00 AM EST - 06/01/2020 10:40:00 AM EST Influenza vaccination [facility] Influenza vaccination Patient discharged. Outpatient Attender: FRANCISCO Marti DAdmitter: FRANCISCO CONCEPCION MDReferrer: FRANCISCO CONCEPCION MDConsultant: Keegan Rivera MD 2019 01:51:00 PM EST - 05/29/2020 02:20:00 PM EST Pain in ear [facility] Pain in ear Patient discharged. Outpatient Attender: LAUREN Niño mitter: LAUREN MEZA PAReferrer: LAUREN MEZA PAConsultant: Keegan Rivera MD 05/13/2020 12:14 :00 PM EDT - 05/13/2020 12:50:00 PM EDT Cough [facility] Cough Patient discharged. Outpatient Attender: Ranjeet Barfield MD [id number] 05/01/2020 12:00:00 AM EDT - 05/01/2020 02:25:05 PM EDT Rheumatoid arthritis with rheumatoid fac tor, unspecified [facility] Rheumatoid arthritis with rheumatoid fac tor, unspecified Outpatient Attender: Keegan Rivera MD ED-IMAGH 04/09 10:45:00 AM EDT - 04/09/2020 10:46:00 AM EDT PARASESTHIA RIGHT UPPER EXTEMITY AND HAND [facility] PARASESTHIA RIGHT UPPER EXTEMITY AND BROWN D Patient discharged. Outpatient Attender: Keegan Torres mitter: Keegan Rivera MDConsultant: Keegan Rivera MD 008 04/03/2020 03:53:00 PM EDT - 04/03/2020 03:54:00 PM EDT Radiological examination [facility] Radiological examination Outpatient Attender: Keegan Torres mitter: Keegan Rivera MDReferrer: Keegan Rivera MDConsultant: Keegan Rivera MD 04/03/2020 02:01: 00 PM EDT - 04/03/2020 02:30:00 PM EDT Pain in shoulder [facility] Pain in shoulder Patient discharged. Outpatient Attender: ЕЛЕНА JORDAN IVAdm itter: ЕЛЕНА JORDAN IVConsultant: Keegan Rivera MD 008 02/24/2020 10:04:00 AM EDT - 02/24/2020 10:04:00 AM EDT Lab test [facility] Lab test Outpatient Attender: ЕЛЕНА JORDAN IV ED-HCCEDWPCP 2019 10:06:00 AM EDT - 02/21/2020 10:07:00 AM EDT [facility] Patient discharged. Outpatient Attender: ЕЛЕНА JORDAN IVAdm itter: ЕЛЕНА JORDAN IVConsultant: Keegan Rivera MD 008 01/08/2020 11:17:00 AM EDT - 01/08/2020 11:17:00 AM EDT Radiological examination [facility] Radiological examination Outpatient Attender: ЕЛЕНА JORDAN IV ED-HCCEDWPCP 2019 11:59:00 AM EDT - 01/06/2020 12:00:00 PM EDT [facility] Patient discharged. Outpatient Attender: Ranjeet Barfield MD [id number] 11/01/2019 12:00:00 AM EDT Rheumatoid arthritis with rheumatoid factor, unspecifi [facility] Rheumatoid arthritis with rheumatoid fac tor, unspecified Outpatient Attender: ЕЛЕНА JORDAN IV ED-HCCEDWPCP 2019 01:11:00 PM EDT - 10/18/2019 01:12:00 PM EDT [facility] Patient discharged. Outpatient Attender: ЕЛЕНА JORDAN IV -HCCEDWPCP 2019 11:05:00 AM EST - 08/06/2019 11:06:00 AM EST [facility] Patient discharged. Outpatient Attender: Jj Michelle MD CPSCAORT-[id number] 03/2020 11:17:00 AM EST - 07/25/2019 11:18:00 AM EST [facility] al Patient discharged. Outpatient Attender: JJ Frye er: JJ Brownultant: Keegan Rivera MD 008 07/23/2019 10:02:00 AM EST - 07/23/2019 10:03:00 AM EST Lab test [facility] Lab test Outpatient Attender: Jj Michelle MD CPSCAORT-[id number] 06/16 09:51:00 AM EST - 07/02/2019 09:52:00 AM EST R07.9 [facility] al R07.9 Patient discharged. Outpatient Attender: MELANY Jordan RNPAttender: ЕЛЕНА JORDAN IV ED-HCCEDWPCP 04/02/2019 08:04:00 AM EDT - 04/02/2019 08:05:00 AM EDT [facility] Patient discharged. Outpatient Attender: Bernardo Fry MD ED-IMAGH 11/2017 08:57:00 AM EST - 05/21/2018 08:58:00 AM EST SPINAL STENOSIS [facility] SPINAL STENOSIS Outpatient Attender: Karena De Diosanastacio FARFAN ED-IMAGH 2017 10:49:00 AM EDT - 02/06/2018 10:50:00 AM EDT CHRONIC PAIN [facility] CHRONIC PAIN Immunizations Vaccine Date Status Description Data Source(s) Influenza, high dose seasonal 06/01/2020 12:00:00 AM EST complet ed Influenza, high dose seasonal Influenza, high dose seasonal 06/01/2020 Completed 135 [facility] Influenza, high dose seasonal 06/01/2020 12:00:00 AM EST complet ed Influenza, high dose seasonal Influenza, high dose seasonal 06/01/2020 Completed 135 [facility] Medications Medication Brand Name Start Date Product Form Dose Route Admi nistrative Instructions Pharmacy Instructions Status Indications Reaction Description Data Source(s) Ibuprofen 800 MG Oral Tablet Ibuprofen 800MG Oral Tabl et Ibuprofen 800MG Oral Tablet 07/13/2020 12:00:00 AM EST 1 TABLET BY MOUTH active Ibuprofen 800MG Oral Tablet 07/13/2020 Unknown BY MOUTH NEEDED EVERY 8HR 1 [id number] metoprolol succinate 25 MG Extende d Release Oral Tablet Metoprolol Succinate 25MG Oral Tablet, Extended Release Metoprolol Succinate 25MG Oral Tablet, Extended Release 05/29/2020 12:00:00 AM EST 1 TABLET ORAL active Metoprolol Succinate 25MG Oral Tablet, Extended Releas e 05/29/2020 Unknown ORAL AT BEDTIME 1 TABLET [id number] [facility] Azithromycin 250MG Oral Tablet 05/29/2020 12:00:00 AM EST 1 TABLET BY MOUTH active Azithromycin 250MG Oral Tablet 05/29/2020 Unk nown BY MOUTH DAILY 1 [facility] [id number] [facility] metoprolol succinate 25 MG Extende d Release Oral Tablet Metoprolol Succinate 25MG Oral Tablet, Extended Release Metoprolol Succinate 25MG Oral Tablet, Extended Release 05/29/2020 12:00:00 AM EST 1 TABLET ORAL active Metoprolol Succinate 25MG Oral Tablet, Extended Releas e 05/29/2020 Unknown ORAL AT BEDTIME 1 TABLET 448956 [facility]ital Levothyroxine Sodium 0.075 MG Oral Tablet Levothyroxin e 75MCG Oral Tablet Levothyroxine 75MCG Oral Tablet 05/29/2020 12:00:00 AM EST 1 TABLET O RAL active Levothyroxine 75MCG Oral Tablet 05/29/2020 Unknown ORAL DAILY 1 TABLET 991535 [facility] pital Ergocalciferol 16487 UNT Oral Capsule Vitamin D 64385V U Oral Capsule Vitamin D 99603QZ Oral Capsule 05/29/2020 12:00:00 AM EST 1 CAPSULE BY MOUTH active Vitamin D 43045QU Oral Capsule 05/29/2020 Unknown BY MOUTH Once a Week 1 CAPSULE [id number] [facility] pital Diclofenac Sodium 0.01 MG/MG Topical Gel [Voltaren] Voltaren Gel 1% Topical application Gel/Jelly Voltaren Gel 1% Topical application Gel/Jelly 05/29/20 20 12:00:00 AM EST 2 GRAM TOPICAL active Voltaren Gel 1% Topical application Gel/Jelly 05/29/2020 Unknown TOPICAL 4 TIMES A DAY [address] [facility] Lisinopril 20 MG Oral Tablet Lisinopril 20MG Oral Tabl et Lisinopril 20MG Oral Tablet 05/29/2020 12:00:00 AM EST 1 TABLET ORAL active Lisinopril 20MG Oral Tablet 05/29/2020 Unknown ORAL TWICE A DAY [address] [facility] Azithromycin 250MG Oral Tablet 05/29/2020 12:00:00 AM EST 1 TABLET BY MOUTH active Azithromycin 250MG Oral Tablet 0 Unknown BY MOUTH DAILY 1 TABLET 226733 [facility] spital Amlodipine 10 MG Oral Tablet amLODIPine Besylate 10MG Oral Tablet amLODIPine Besylate 10MG Oral Tablet 05/29/2020 12:00:00 AM EST 1 TABLET ORAL active amLODIPine Besylate 10MG Oral Tablet 05/29/2020 Unknown OR AL DAILY 1 TABLET 458703 [facility] Levothyroxine Sodium 0.075 MG Oral Tablet Levothyroxin e 75MCG Oral Tablet Levothyroxine 75MCG Oral Tablet 05/29/2020 12:00:00 AM EST 1 TABLET O RAL active Levothyroxine 75MCG Oral Tablet 05/29/2020 Unknown ORAL DAILY 1 TABLET 608851 [facility] Lisinopril 20 MG Oral Tablet Lisinopril 20MG Oral Tabl et Lisinopril 20MG Oral Tablet 05/29/2020 12:00:00 AM EST 1 TABLET ORAL active Lisinopril 20MG Oral Tablet 05/29/2020 Unknown ORAL TWICE A DAY [address] [facility] Ergocalciferol 89356 UNT Oral Capsule Vitamin D 84059D U Oral Capsule Vitamin D 58887RI Oral Capsule 05/29/2020 12:00:00 AM EST 1 CAPSULE BY MOUTH active Vitamin D 18186NS Oral Capsule 05/29/2020 Unknown BY MOUTH Once a Week 1 CAPSULE 6966776 [facility] pital Allopurinol 300 MG Oral Tablet Allopurinol 300MG Oral Tablet Allopurinol 300MG Oral Tablet 05/29/2020 12:00:00 AM EST 1 TABLET ORAL acti ve Allopurinol 300MG Oral Tablet 05/29/2020 Unknown ORAL DAILY [address] [facility] Allopurinol 300 MG Oral Tablet Allopurinol 300MG Oral Tablet Allopurinol 300MG Oral Tablet 05/29/2020 12:00:00 AM EST 1 TABLET ORAL acti ve Allopurinol 300MG Oral Tablet 05/29/2020 Unknown ORAL DAILY [address] [facility] Amlodipine 10 MG Oral Tablet amLODIPine Besylate 10MG Oral Tablet amLODIPine Besylate 10MG Oral Tablet 05/29/2020 12:00:00 AM EST 1 TABLET ORAL active amLODIPine Besylate 10MG Oral Tablet 05/29/2020 Unknown OR AL DAILY 1 TABLET 844976 [facility] 200 ACTUAT Albuterol 0.09 MG/ACTUAT Mete red Dose Inhaler [Ventolin] Ventolin HFA 0.09MG/1Actuation Inhalation Suspension Ventolin HFA 0.09MG/1Actuation Inhalation Suspension 05/13/2020 12:00:00 AM EDT 2 mL INHALATION active Ventolin HFA 0.09MG/1Actuation Inhalation Suspension 05/13/2020 Unknown INHALATION NEEDED EVERY 6 HR 2 PUFF 389732 RxNorm [facility] 200 ACTUAT Albuterol 0.09 MG/ACTUAT Mete red Dose Inhaler [Ventolin] Ventolin HFA 0.09MG/1Actuation Inhalation Suspension Ventolin HFA 0.09MG/1Actuation Inhalation Suspension 05/13/2020 12:00:00 AM EDT 2 mL INHALATION active Ventolin HFA 0.09MG/1Actuation Inhalation Suspension 05/13/2020 Unknown INHALATION NEEDED EVERY 6 HR 2 PUFF 311291 RxNorm [facility] Prednisone 5 MG Oral Tablet predniSONE 5 MG Oral Table t (DELTASONE) predniSONE 5 MG Oral Tablet (DELTASONE) 05/01/2020 12:00:00 AM EDT active 10 mg bid for 5 days then 5 mg tid for 5 days, then 5 mg bid for 5 days, then 5 mg qday for 5 days, then stop [facility] Humira 40 MG/0.4ML Subcutaneous Prefilled Syringe Kit (susan mum) 1235-2218-35 04/30/2020 12:00:00 AM EDT act ross Rheumatoid arthritis involving multiple sites with positive rheumatoid factor INJECT 1 SYRINGE UNDER THE SKIN EVERY 7 DAYS. [facility] Rheumatoid arthritis involving multiple sites with positive rheumatoid factor tramadol hydrochloride 50 MG Oral Tablet traMADol HCl 50 MG Oral Tablet (ULTRAM) traMADol HCl 50 MG Oral Tablet (ULTRAM) 04/27/2020 12:00:00 AM EDT active [facility] meloxicam 15 MG Oral Tablet Meloxicam 15 MG Oral Table t (MOBIC) Meloxicam 15 MG Oral Tablet (MOBIC) 04/03/2020 12:00:00 AM EDT active TAKE 1 TABLET BY MOUTH DAILY IN THE MORNING [facility] Metformin hydrochloride 500 MG Oral Tablet METFORMIN HCL 03/11/2020 12:00:00 AM EDT tablet 180 TAKE ONE TABLET BY MOUTH TWI CE A DAY WITH MEALS TAKE ONE TABLET BY MOUTH TWICE A DAY WITH MEALS SOLD: 06/08/2020 [facility] 100 mg 03/11/2020 12:00:00 AM EDT [...] 40 MG/0.4ML Subcutaneous Pen-injector Kit (Humira Pen) [id number] 11/01/2019 12:00:00 AM EDT 40 mg Subcutaneous active Inject 0.4 mLs into the skin once a week [facility] 0.8 ML adalimumab 50 MG/ML Prefilled Syr joseph [Humira] Humira 40 MG/0.8ML Subcutaneous Prefilled Syringe Kit (adalimumab) Humira 40 MG/0.8ML Subcutaneous Prefilled Syringe Kit (adalimumab) 08/30/2019 12:00:00 AM EST aborted INJECT ONE SYRINGE SUBCUTANEOUSLY EVERY WEEK. REFRIGERATE. [facility] Simvastatin 40 MG Oral Tablet Simvastatin 40MG Oral Ta blet Simvastatin 40MG Oral Tablet 06/19/2019 12:00:00 AM EST 1 TABLET ORAL active Simvastatin 40MG Oral Tablet 06/19/2019 Unknown ORAL DAILY 1 TABLET 998343 RxNorm [facility] 0.8 ML adalimumab 50 MG/ML Auto-Injector Adalimumab 40 MG/0.8ML PNKT Adalimumab 40 MG/0.8ML PNKT 11/01/2017 12:00:00 AM EDT 40 mg Subcutaneous aborted Inject 40 mg into the skin once a week [facility] Insurance Providers Payer name Policy type / Coverage type Policy ID Covered constitution party ID Covered constitution party's relationship to pickett Policy [place] Plan Information MEDICARE [id number] SP [id number] A MEDICARE-OP [id number] undefined [id number] MEDICARE [id number] Other [id number] MEDICARE-CLINIC [id number] undefined [id number] MEDICARE [id number] S [id number] [id number] MEDICAID [id number] S [id number] MEDICARE A [id number] Self [id number] [id number] MEDICARE [id number] S [id number] A MEDICARE [id number] Other [id number] MEDICARE [id number] Mini [id number] A MEDICARE [id number] [facility] OPTIONS-OP [id number] undefined [id number] MEDICARE -RECURRING [id number] undefined [id number] MEDICARE-OP [id number] undefined [id number] MEDICARE A [id number] Self [id number] A MEDICARE-CLINIC [id number] undefined [id number] [facility] OPTIONS -RECURRING [id number] un defined [id number] MEDICARE-CLINIC [id number] undefined [id number] ANS-Medicare Part B [id number] ANSI-Medicare Part B [id number] ANSI-Medicare Part B [id number] AARP U [id number] Self [id number] MEDICAID UNAVAILABLE UNAVAILA BLE MEDICARE [id number] SP [id number] A MEDICARE [id number] SP [id number] A MEDICARE -O/P [id number] 18 [id number] MEDICARE -CLINIC [id number] 18 [id number] MEDICARE C [id number] S [id number] A [facility] OPTIONS -O/P [id number] [facility] OPTIONS -CLINIC [id number] [facility] OPTIONS -CLN [id number] MEDICARE -O/P [id number] 18 [id number] AAR O [id number] S [id number] MEDICARE OUTPATIENT M [id number] S [id number] Problems, Conditions, and Diagnoses Code Display Name Description Problem Type Effective Dates Data Source(s) I10 Essential (primary) hypertension Essential (primary) h ypertension Diagnosis 07/13/2020 03:01:00 PM [facility] F329 Major depressive disorder, single episod e, unspecified Major depressive disorder, single episode, unspecified Diagnosis 07/13/2020 03:01:00 PM [facility] K219 Gastro-esophageal reflux disease without esophagitis Gastro-esophageal reflux disease without esophagitis Diagnosis 07/13/2020 03:01:00 PM ES T [facility] E039 Hypothyroidism, unspecified Hypothyroidism, unspecifie d Diagnosis 07/13/2020 03:01:00 PM [facility] M069 Rheumatoid arthritis, unspecified Rheumatoid art hritis, unspecified Diagnosis 07/13/2020 03:01:00 PM [facility] [id number] Chronic gout, unspecified, without tophu s (tophi) Chronic gout, unspecified, without tophus (tophi) Diagnosis 07/13/2020 03:01:00 PM E [facility] E119 Type 2 diabetes mellitus without complic ations Type 2 diabetes mellitus without complications Diagnosis 07/13/2020 03:01:00 PM [facility] I2510 Atherosclerotic heart diseas e of [place] coronary artery without angina pectoris Atherosclerotic heart disease of [place] coronary artery without angina pectoris Diagnosis 07/13/2020 03:01:00 PM [facility] E559 Vitamin D deficiency, unspecified Vitamin D defi ciency, unspecified Diagnosis 07/13/2020 03:01:00 PM [facility] D869 Sarcoidosis, unspecified Sarcoidosis, unspecified Diag nosis 07/13/2020 03:01:00 PM [facility] H9203 Otalgia, bilateral Otalgia, bilateral Diagnosis 03:01:00 PM [facility] P23139 Pain in right shoulder Pain in right shoulder Diagnosi s 07/13/2020 03:01:00 PM [facility] P16087 Pain in right foot Pain in right foot Diagnosis 03:01:00 PM [facility] D86.9 Sarcoidosis, unspecified SARCOIDOSIS, UNSPECIFIED Diag nosis 06/15/2020 02:06:00 PM [facility] M19.011 Primary osteoarthritis, right shoulder P RIMARY OSTEOARTHRITIS, RIGHT SHOULDER Diagnosis 06/15/2020 02:06:00 PM [facility] M75.41 Impingement syndrome of right shoulder I MPINGEMENT SYNDROME OF RIGHT SHOULDER Diagnosis 06/15/2020 02:06:00 PM [facility] Z23 Encounter for immunization Encounter for immunization Diagnosis 06/01/2020 10:04:00 AM [facility] M5412 Radiculopathy, cervical region Radiculopathy, cervical region Diagnosis 05/29/2020 01:51:00 PM [facility] G4733 Obstructive sleep apnea (adult) (pediatr ic) Obstructive sleep apnea (adult) (pediatric) Diagnosis 05/29/2020 01:51:00 PM [facility] H6691 Otitis media, unspecified, right ear Otitis medi a, unspecified, right ear Diagnosis 05/13/2020 12:14:00 PM [facility] J209 Acute bronchitis, unspecified Acute bronchitis, unspec ified Diagnosis 05/13/[facility] 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 Diagnosis [facility] Rheumatoid arthritis with rheumatoid fac tor, unspecified Rheumatoid arthritis with rheumatoid factor, unspecified Diagnosis 05/01/20 20 01:31:10 PM [facility] M50.30 Other cervical disc degeneration, unspec ified cervical region OTHER CERVICAL DISC DEGENERATION, UNSP CERVICAL REGION Diagnosis 04/09 10:45:00 AM [facility] M54.12 Radiculopathy, cervical region RADICULOPATHY, CERVICAL REGION Diagnosis 04/09/2020 10:45:00 AM [facility] R20.2 Paresthesia of skin PARESTHESIA OF SKIN Diagnosis 0 04/09/2020 10:45:00 AM [facility] M542 Cervicalgia Cervicalgia Diagnosis 04/03/2020 02:01:00 PM [facility] Z1389 Encounter for screening for other disord er Encounter for screening for other disorder Diagnosis 04/03/2020 02:01:00 PM [facility] M810 Age-related osteoporosis without current pathological fracture Age-related osteoporosis without current pathological fracture Diagnosis 02:01:00 PM EDT [facility] R202 Paresthesia of skin Paresthesia of skin Diagnosis 0 04/03/2020 02:01:00 PM [facility] E785 Hyperlipidemia, unspecified Hyperlipidemia, unspecifie d Diagnosis 04/03/2020 02:01:00 PM [facility] I252 Old myocardial infarction Old myocardial infarction Di agnosis 04/03/2020 02:01:00 PM EDT [facility] 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, right ankle and foot Id iopathic gout, right ankle and foot Diagnosis 04/03/2020 02:01:00 PM [facility] Z1321 Encounter for screening for nutritional disorder Encounter for screening for nutritional disorder Diagnosis 02/24/2020 10:04:00 AM [facility] G89.29 Other chronic pain OTHER CHRONIC PAIN Diagnosis 01/2020 10:06:00 AM [facility] M25.511 Pain in right shoulder PAIN IN RIGHT SHOULDER Diagnosi s 02/21/2020 10:06:00 AM [facility] M79.641 Pain in right hand PAIN IN RIGHT HAND Diagnosis 01/2020 10:06:00 AM [facility] R73.09 Other abnormal glucose OTHER ABNORMAL GLUCOSE Diagnosi s 02/21/2020 10:06:00 AM [facility] E03.9 Hypothyroidism, unspecified HYPOTHYROIDISM, UNSPECIFIE D Diagnosis 02/21/2020 10:06:00 AM [facility] E78.5 Hyperlipidemia, unspecified HYPERLIPIDEMIA, UNSPECIFIE D Diagnosis 02/21/2020 10:06:00 AM [facility] I10 Essential (primary) hypertension ESSENTIAL (PRIMARY) H YPERTENSION Diagnosis 02/21/2020 10:06:00 AM [facility] Z00.00 Encounter for general adult medical examination without abnormal findings ENCNTR FOR GENERAL ADULT MEDICAL EXAM W/O ABNORMAL FINDINGS Diagnosis 02/21/2020 10:06:00 AM [facility] [id number] Pain in right hand Pain in right hand Diagnosis 11:17:00 AM [facility] R73.03 Prediabetes PREDIABETES Diagnosis 08/06/2019 11:05:00 AM [facility] I21.9 Acute myocardial infarction, unspecified ACUTE MYOCARDIAL INFARCTION, UNSPECIFIED Diagnosis 08/06/2019 11:05:00 AM [facility] spital I10 Essential (primary) hypertension ESSENTIAL (PRIMARY) H YPERTENSION Diagnosis 07/25/2019 11:17:00 AM [facility] I25.2 Old myocardial infarction OLD MYOCARDIAL INFARCTION Di agnosis 07/25/2019 11:17:00 AM [facility] R94.31 Abnormal electrocardiogram [ECG] [EKG] A BNORMAL ELECTROCARDIOGRAM [ECG] [EKG] Diagnosis 07/25/2019 11:17:00 AM [facility] R07.9 Chest pain, unspecified CHEST PAIN, UNSPECIFIED Diagno sis 07/25/2019 11:17:00 AM [facility] R079 Chest pain, unspecified Chest pain, unspecified Diagno sis 07/23/2019 10:02:00 AM [facility] Surgeries/Procedures Procedure Description Date Indications Data Source(s) Hospital outpatient clinic visit for assessment and ma nagement of a patient Hospital Outpatient Clinic Visit 06/15/2020 12:00:00 AM [facility] MRI SPINAL CANAL CERVICAL W/O CONTRAST MATRL MRI NECK SPINE W/O DYE 04/09/2020 12:00:[address] [facility] outpatient clinic visit for assessment and ma nagement of a patient Hospital Outpatient Clinic Visit 02/21/2020 12:00:00 AM [facility] Results ID Date Data Source [id number] 08/02/2020 01:20:00 PM [facility] Name Value Range Interpretation Code Description Data Neelam rce(s) Supporting Document(s) T4 FREE 0.79 ng/dL 0.76 - 1.46 [facility] ital ID Date Data Source [id number] 08/02/2020 01:20:00 PM [facility] Name Value Range Interpretation Code Description Data Neelam rce(s) Supporting Document(s) TSH 5.17 uIU/mL 0.36 - 3.74 Above high normal [facility] ID Date Data Source [id number] 08/02/2020 01:20:00 PM EST [facility] Name Value Range Interpretation Code Description Data Neelam rce(s) Supporting Document(s) COMPREHENSIVE CHEM PROFILE [facility] COMPREHENSIVE METABOLIC PANEL Sodium [Moles/volume] in Serum or Plasma 142 mEq/L 136 - 145 [facility] Potassium [Moles/volume] in Serum or Plasma 4.1 mEq/L 3.5 - 5.1 [facility] Chloride [Moles/volume] in Serum or Plasma 103 mEq/L 98 - 107 [facility] Carbon dioxide, total [Moles/volume] in Serum or Plasma 26.3 mEq /L 21.0 - 32.0 [facility] Glucose [Mass/volume] in Serum or Plasma 157 mg/dL 70 - 100 Above high normal [facility] Urea nitrogen [Mass/volume] in Serum or Plasma 20 mg/dL 7 - 18 Above high normal [facility] CREATININE SERUM 0.81 mg/dL 0.55 - 1.02 [facility] AGE 64 yrs [facility] l HEIGHT 62.[address] [facility] ital eGFR NON-AFR AMR >60 [facility] eGFR AFR AMR >60 [facility] ital BUN/CREAT 25 6 - 25 [facility] l Protein [Mass/volume] in Serum or Plasma 7.9 g/dL 6.0 - 8.3 [facility] Albumin [Mass/volume] in Serum or Plasma 3.6 g/dL 3.8 - 5.4 Below low normal [facility] GLOBULIN 4.3 g/dL 2.0 - 4.0 Above high normal [facility] A/G RATIO 0.8 0.8 - 2.0 [facility] Calcium [Mass/volume] in Serum or Plasma 9.4 mg/dL 8.8 - 10.2 [facility] Bilirubin.total [Mass/volume] in Serum or Plasma 0.4 mg/dL 0.2 - 1.0 [facility] Bilirubin.direct [Mass/volume] in Serum or Plasma 0.1 mg/dL 0.0 - 0. 2 [facility] INDIRECT BILI 0.3 mg/dL 0.0 - 1.1 [facility] pital ALK PHOSPHATASE 96 U/L 35 - 104 [facility] ospital Aspartate aminotransferase [Enzymatic ac tivity/volume] in Serum or Plasma by With P-5'-P 16 IU/L 7 - 37 [facility] Alanine aminotransferase [Enzymatic acti vity/volume] in Serum or Plasma by With P-5'-P 32 IU/L 12 - 78 [facility] ANION GAP 13 7 - 15 [facility] l Estimated GFR referenc e range: >60ml/min/1.73m >18 years: Calculated using IDMS traceable Study Equation <18 years: Calculated using IDMS tracable Bedside Schartz Equation ID Date Data Source [id number] 08/02/2020 01:20:00 PM EST [facility] Name Value Range Interpretation Code Description Data Neelam rce(s) Supporting Document(s) CBC [facility] l COMPLETE BLOOD COUNT Leukocytes [#/volume] in Blood by Automated count 12.7 K/uL 4.0 - 10.0 Above high normal [facility] Erythrocytes [#/volume] in Blood by Automated count 5.03 M/uL 4.00 - 5.40 [facility] Hemoglobin [Mass/volume] in Blood 14.0 g/dL 12.0 - 15.5 [facility] Hematocrit [Volume Fraction] of Blood by Automated count 45.1 % 36.0 - 44.5 Above high normal [facility] Erythrocyte mean corpuscular volume [Entitic volume] by Auto mated count 89.7 fL 80.0 - 96.0 [facility] Erythrocyte mean corpuscular hemoglobin [Entitic mass] by Automated count 27.8 pg 26.0 - 34.0 [facility] Erythrocyte mean corpuscular hemoglobin concentration [Mass/volume] by Automated count 31.0 g/dL 32.0 - 36.0 Below low normal [facility] real Erythrocyte distribution width [Ratio] by Automated count 15.0 % 11.6 - 14.8 Above high normal [facility] Platelets [#/volume] in Blood by Automated count 361 K/uL 150 - 450 [facility] Platelet mean volume [Entitic volume] in Blood by Automated count 9.7 fL 7.1 - 10.4 [facility] Neutrophils [#/volume] in Blood by Automated count 6.58 K/uL 1.70 - 7.70 [facility] Lymphocytes [#/volume] in Blood by Automated count 4.70 K/uL 1.50 - 6.00 [facility] Monocytes [#/volume] in Blood by Automated count 0.83 K/uL 0.00 - 1. 00 [facility] Eosinophils [#/volume] in Blood by Automated count 0.44 K/uL 0.00 - 0.30 Above high normal [facility] Basophils [#/volume] in Blood by Automated count 0.12 K/uL 0.00 - 0.10 Above high normal [facility] 0.07 Urinalysis macro (dipstick) panel - Urine 0.000 10^3/uL 0.000 - 0.012 [facility] Neutrophils/100 leukocytes in Blood by Automated count 51.7 % 42. 2 - 75.2 [facility] Lymphocytes/100 leukocytes in Blood by Automated count 36.9 % 15. 0 - 41.0 [facility] Monocytes/100 leukocytes in Blood by Automated count 6.5 % 0.0 - 12.0 [facility] Eosinophils/100 leukocytes in Blood by Automated count 3.5 % 0.0 - 7.0 [facility] 0.90.50 NRBC 0.0 % [facility] DIFF NOT INDICATED [facility]spital SMEAR REVIEWED, AGREE W/AUTO DIFF RBC MORPH NOT INDICATED [facility] pital ID Date Data Source [id number] 05/01/2020 03:48:46 PM EDT [facility] Name Value Range Interpretation Code Description Data Neelam rce(s) Supporting Document(s) Progress Note [facility] [id number]/KEHycHCCip0YxQZbsXIp7XJflRUYoF0UsMUB6rC0bVKO0KFkUIxLaIbUpOML1 lbm [file] [id number]+XV8cVNh+Uh2Pv6DpvcK9gyYnNVjjHWH0Cy3BJAGHW0RFCq== ID Date Data Source [id number] 05/01/2020 06:30:14 PM [facility] Name Value Range Interpretation Code Description Data Neelam rce(s) Supporting Document(s) Leukocytes [#/volume] in Blood by Automated count 11.8 10*3/uL 4-10 [facility] Erythrocytes [#/volume] in Blood by Automated count 4.89 10*6/uL 4.1- 5.3 [facility] Hemoglobin [Mass/volume] in Blood 13.8 g/dL 11.5-15.5 [facility] Hematocrit [Volume Fraction] of Blood by Automated count 42.7 % 3 6-45 [facility] Erythrocyte mean corpuscular volume [Entitic volume] by Auto mated count 87.2 fL 80-96 [facility] Erythrocyte mean corpuscular hemoglobin [Entitic mass] by Automated count 28.2 pg 27-33 [facility] Erythrocyte mean corpuscular hemoglobin concentration [Mass/volume] by Automated count 32.3 g/dL 32.0-36.0 [facility] E[facility]th[facility] distribution width [Ratio] by Automated count 14.5 % 11.5-14.5 [facility] Platelets [#/volume] in Blood by Automated count 416 10*3/uL 150-400 H [facility] Differential cell count method - Blood [facility] Neutrophils/100 leukocytes in Blood by Automated count 60 % [facility] Lymphocytes/100 leukocytes in Blood by Automated count 29 % [facility] Monocytes/100 leukocytes in Blood by Automated count 5 % [facility] Eosinophils/100 leukocytes in Blood by Automated count 5 % [facility] Basophils/100 leukocytes in Blood by Automated count 1 % [facility] Neutrophils [#/volume] in Blood by Automated count 7.07 10*3/uL 1.8-7 .0 H [facility] Lymphocytes [#/volume] in Blood by Automated count 3.45 10*3/uL 1.2-4 .0 [facility] Monocytes [#/volume] in Blood by Automated count 0.63 10*3/uL 0-0.8 [facility] Eosinophils [#/volume] in Blood by Automated count 0.55 10*3/uL 0-0.5 H [facility] Basophils [#/volume] in Blood by Automated count 0.10 10*3/uL 0-0.2 [facility] Nucleated erythrocytes/100 leukocytes [Ratio] in Blood by Automated count 0 /100{WBCs} 0-0 [facility] ID Date Data Source [id number] 05/01/2020 06:46:28 PM [facility] Value Range Interpretation Code Description Data Neelam rce(s) Supporting Document(s) Erythrocyte sedimentation rate 53 mm/hr <30 [facility] ID Date Data Source [id number] 05/01/2020 06:55:54 PM [facility] Value Range Interpretation Code Description Data Neelam rce(s) Supporting Document(s) Alanine aminotransferase [Enzymatic activity/volume] in Seru m or Plasma 26 U/L <33 [facility] ID Date Data Source [id number] 05/01/2020 06:55:54 PM [facility] Value Range Interpretation Code Description Data Neelam rce(s) Supporting Document(s) C reactive protein [Mass/volume] in Serum or Plasma 26.6 mg/L <8.0 [facility] ID Date Data Source [id number] 05/01/2020 06:55:54 PM [facility] Value Range Interpretation Code Description Data Neelam rce(s) Supporting Document(s) Aspartate aminotransferase [Enzymatic activity/volume] in Serum or Plasma 49 U/L <32 [facility] ID Date Data Source [id number] 05/01/2020 06:55:54 PM EDT [facility] Name Value Range Interpretation Code Description Data Neelam rce(s) Supporting Document(s) Creatinine [Mass/volume] in Serum or Plasma 0.47 mg/dL 0.50-0.90 L [facility] Glomerular filtration rate/1.73 sq M pre dicted among non-blacks [Volume Rate/Area] in Serum or Plasma by Creatinine-based formula (MDRD) >6 0 [facility] Glomerular filtration rate/1.73 sq M pre dicted among blacks [Volume Rate/Area] in Serum or Plasma by Creatinine-based formula (MDRD) >60 [facility] ID Date Data Source [id number] 04/09/2020 11:12:14 AM [facility] [address] [place] [address] TELEPHONE RADIOLOGY DEPARTMENT Name: [facility] #: [id number] : 1955 Ordering Physician: KELSEY ANGEL Sex: F Date: 04/03/20 Admission Type: O/P X-ray Number: [id number] Unsigned Transcriptions are preliminary reports and do not represent a Medical or Legal Document XRAY SPINE CERVICAL 5V [id number] COMPLETE:04/03/20 16:42 LEI 37510 (SPINE PROCED REASON: MOBILITY CHANGES FINDINGS: Examination [...] rce(s) Supporting Document(s) ID Date Data Source [id number] 04/10/2020 12:12:00 PM EDT [facility] Imaging Services Department Imaging Report [address], [place] [address] %(RAD)RES..mtdd.print.filter("line") Name: VITA ANDINO : 1955 Age/Sex: 64F Ordering Provider: Keegan Rivera MD Med Rec #: [id number] Reg Status: DEP REF Room #: Date of Service: 04/09/20 Report Number: [id number] cc:Keegan Rivera MD; Елена Jordan IV, NAHEED Send Report To: [id number] MRI/MRI C Spine No Contrast Reason for [...] Date/Time: 04/10/20 0749 Transcribed Date/Time: 04/10/20 1212 Early Childhood Associate: ADONIS Name Value Range Interpretation Code Description Data Neelam rce(s) Supporting Document(s) ID Date Data Source [id number] 02/24/2020 10:50:41 AM EDT [id number] [place] [address] TELEPHONE RADIOLOGY DEPARTMENT Name: [facility] #: [id number] : PATBDAY Ordering Physician: NIKKI GAINES Sex: F Date: 02/24/20 Admission Type: O/P X-ray Number: [id number] Unsigned Transcriptions are preliminary reports and do not represent a Medical or Legal Document \\CTNo\\ EKG TRACING ONLY W/O REPORT [id number] COMPLETE:02/24/20 10:40 LEI 99592 (REASON FOR PROCED: ESSENTIAL HYPERTENSION \\CTNx\\ SEE SCANNED EKG REPORT Dictating Initials: [facility] Transcribe Date: 02/24/20 10:50 Transcribe Initials: Name Value Range Interpretation Code Description Data Neelam rce(s) Supporting Document(s) ID Date Data Source [id number] 02/24/2020 10:25:00 AM EDT [facility] Value Range Interpretation Code Description Data Neelam rce(s) Supporting Document(s) T3 TOTAL [facility] l _T3 TOTAL_Triiodothyronine (T3)Repo rted: 02/25/2020 14:05 Status=F RESULT FLAG RANGE UNITS SC --Triiodothyronine (T3) 133 71-180 ng/dL RN 02/25/20.1405.rfl.COMPLETE.LCTRRN Test performed by: [facility] [address] [place] [id number] Yadi Alex MD ID Date Data Source [id number] 02/24/2020 10:25:00 AM EDT [facility] Name Value Range Interpretation Code Description Data Neelam rce(s) Supporting Document(s) 25-OH VITAMIN D <12.8 ng/mL 30.0 - 100 Below low normal [facility] Deficient < 20 ng/mL Insufficient 20 - < 30 ng/mL Sufficient 30 - 100 ng/mL 25-OH vitamin D reference values based on the Clinical Guidelines Subcommittee of the Endocrine Society Task Force. Biotin can interfere with 25-OH Vitamin D results if taken 48 hours prior to specimen collection. ID Date Data Source [id number] 02/24/2020 10:25:00 AM EDT [facility] Name Value Range Interpretation Code Description Data Neelam rce(s) Supporting Document(s) TSH 9.71 uIU/mL 0.36 - 3.74 Above high normal [facility] Reference range updated for new Accolade technology based chemiluminescent immunoassay method, and age specific ranges. Effective 03/27/18. ID Date Data Source [id number] 02/24/2020 10:25:00 AM EDT [facility] Name Value Range Interpretation Code Description Data Neelam rce(s) Supporting Document(s) Cholesterol [Mass/volume] in Serum or Plasma 195 mg/dL [facility] Triglyceride [Mass/volume] in Serum or Plasma 205 mg/dL [facility] Cholesterol in HDL [Mass/volume] in Serum or Plasma 56 mg/dL [facility] Cholesterol in LDL [Mass/volume] in Serum or Plasma by calculation 98 mg/dL [facility] CHOL/HDL 3.48 [facility] l \\BLDo\\INTERPRE TATION\\BLDx\\ REFERENCE RANGES (NATIONAL [...] mg/dL VERY HIGH ID Date Data Source [id number] 02/24/2020 10:25:00 AM EDT [facility] Name Value Range Interpretation Code Description Data Neelam rce(s) Supporting Document(s) COMPREHENSIVE CHEM PROFILE i [facility] COMPREHENSIVE METABOLIC PANEL Sodium [Moles/volume] in Serum or Plasma 136 mEq/L 136 - 145 [facility] Potassium [Moles/volume] in Serum or Plasma 4.3 mEq/L 3.5 - 5.1 [facility] Chloride [Moles/volume] in Serum or Plasma 102 mEq/L 98 - 107 [facility] Carbon dioxide, total [Moles/volume] in Serum or Plasma 24.8 mEq /L 21.0 - 32.0 [facility] Glucose [Mass/volume] in Serum or Plasma 109 mg/dL 70 - 100 Above high normal [facility] Urea nitrogen [Mass/volume] in Serum or Plasma 12 mg/dL 7 - 18 [facility] CREATININE SERUM 0.81 mg/dL 0.55 - 1.02 [facility] AGE 64 yrs [facility] HEIGHT NA [facility] l eGFR NON-AFR AMR >60 [facility] eGFR AFR AMR >60 [facility] ital BUN/CREAT 15 6 - 25 [facility] l Protein [Mass/volume] in Serum or Plasma 8.3 g/dL 6.0 - 8.3 [facility] Albumin [Mass/volume] in Serum or Plasma 4.0 g/dL 3.8 - 5.4 [facility] GLOBULIN 4.3 g/dL 2.0 - 4.0 Above high normal [facility] A/G RATIO 0.9 0.8 - 2.0 [facility] Calcium [Mass/volume] in Serum or Plasma 9.4 mg/dL 8.8 - 10.2 [facility] Bilirubin.total [Mass/volume] in Serum or Plasma 0.5 mg/dL 0.2 - 1.0 [facility] Bilirubin.direct [Mass/volume] in Serum or Plasma 0.1 mg/dL 0.0 - 0. 2 [facility] INDIRECT BILI 0.4 mg/dL 0.0 - 1.1 [facility] pital ALK PHOSPHATASE 92 U/L 35 - 104 [facility] ospital Aspartate aminotransferase [Enzymatic ac tivity/volume] in Serum or Plasma by With P-5'-P 25 IU/L 7 - 37 [facility] Alanine aminotransferase [Enzymatic acti vity/volume] in Serum or Plasma by With P-5'-P 19 IU/L 12 - 78 [facility] ANION GAP 9 7 - 15 [facility] l Estimated GFR referenc e range: >60ml/min/1.73m >18 years: Calculated using IDMS traceable Study Equation <18 years: Calculated using IDMS tracable Bedside Schartz Equation ID Date Data Source [id number] 02/24/2020 10:25:00 AM EDT [facility] Name Value Range Interpretation Code Description Data Neelam rce(s) Supporting Document(s) T4 FREE 0.74 ng/dL 0.76 - 1.46 Below low normal [facility] Reference range updated for n ew LOCI technology based chemiluminescent immunoassay method, and age specific ranges.Effective 03/27/18. ID Date Data Source [id number] 02/24/2020 10:25:00 AM EDT [facility] Name Value Range Interpretation Code Description Data Neelam rce(s) Supporting Document(s) CBC [facility] COMPLETE BLOOD COUNT Leukocytes [#/volume] in Blood by Automated count 10.6 K/uL 4.0 - 10.0 Above high normal [facility] Erythrocytes [#/volume] in Blood by Automated count 4.98 M/uL 4.00 - 5.40 [facility] Hemoglobin [Mass/volume] in Blood 14.3 g/dL 12.0 - 15.5 [facility] Hematocrit [Volume Fraction] of Blood by Automated count 44.2 % 3 6.0 - 44.5 [facility] Erythrocyte mean corpuscular volume [Entitic volume] by Auto mated count 88.8 fL 80.0 - 96.0 [facility] Erythrocyte mean corpuscular hemoglobin [Entitic mass] by Automated count 28.7 pg 26.0 - 34.0 [facility] Erythrocyte mean corpuscular hemoglobin concentration [Mass/volume] by Automated count 32.4 g/dL 32.0 - 36.0 [facility] Erythrocyte distribution width [Ratio] by Automated count 13.6 % 11.6 - 14.8 [facility] Platelets [#/volume] in Blood by Automated count 345 K/uL 150 - 450 [facility] Platelet mean volume [Entitic volume] in Blood by Automated count 9.9 fL 7.1 - 10.4 [facility] Neutrophils [#/volume] in Blood by Automated count 6.01 K/uL 1.70 - 7.70 [facility] Lymphocytes [#/volume] in Blood by Automated count 3.28 K/uL 1.50 - 6.00 [facility] Monocytes [#/volume] in Blood by Automated count 0.60 K/uL 0.00 - 1. 00 [facility] Eosinophils [#/volume] in Blood by Automated count 0.58 K/uL 0.00 - 0.30 Above high normal [facility] Basophils [#/volume] in Blood by Automated count 0.07 K/uL 0.00 - 0. 10 [facility] 0.05 Urinalysis macro (dipstick) panel - Urine 0.000 10^3/uL 0.000 - 0.012 [facility] Neutrophils/100 leukocytes in Blood by Automated count 56.6 % 42. 2 - 75.2 [facility] Lymphocytes/100 leukocytes in Blood by Automated count 31.0 % 15. 0 - 41.0 [facility] Monocytes/100 leukocytes in Blood by Automated count 5.7 % 0.0 - 12.0 [facility] Eosinophils/100 leukocytes in Blood by Automated count 5.5 % 0.0 - 7.0 [facility] 0.70.50 NRBC 0.0 % [facility] MANUAL DIFF NOT INDICATED [facility] RBC MORPH NOT INDICATED [facility] ID Date Data Source [id number] 01/16/2020 08:08:34 [place] [address] TELEPHONE RADIOLOGY DEPARTMENT Name: [facility] #: [id number] : 1955 Ordering Physician: NIKKI GAINES Sex: F Date: 01/08/20 Admission Type: O/P X-ray Number: [id number] Unsigned Transcriptions are preliminary reports and do not represent a Medical or Legal Document XRAY SHOULDER RIGHT MIN 2 [id number] [id number] COMPLETE: 01/08/20 11:53 LEI 22932 (REASON FOR PROCESS: ACUTE PAIN FINDINGS: Internal [...] rce(s) Supporting Document(s) ID Date Data Source [id number] 01/16/2020 08:06:43 PM EDT [facility] [address] [facility] [place] [address] TELEPHONE RADIOLOGY DEPARTMENT Name: [facility] #: [id number] : 1955 Ordering Physician: NIKKI GAINES Sex: F Date: 01/08/20 Admission Type: O/P X-ray Number: [id number] Unsigned Transcriptions are preliminary reports and do not represent a Medical or Legal Document XRAY HAND AP & LAT RIGHT [id number] COMPLETE:01/08/20 11:53 LEI 17080 (REASON FOR PROCESS: PAIN FINDINGS: AP and [...] rce(s) Supporting Document(s) ID Date Data Source [id number] 11/02/2019 05:16:36 PM EDT [facility] Name Value Range Interpretation Code Description Data Neelam rce(s) Supporting Document(s) Progress Note [facility] [id number]/OJFnvDOGzi3TfRIqvICa7BYufMWLxQ0JcCAT2nH8kDEE6ORdSPkEcIgSyZOZ7 lbm [file] Wn8Y/O4Hd1mRjRgR8FNrb0pM8r9wEYp5+MUjLVrtvPTqHv5PVOM4HAjHp4HKhMFZ5Qo54Vp5obqz+Morongo Akht40xAqFx4ouQKAx9r58Cdtki+cQa8e9923aYl+J6Zxqo/qK6ci+M/tXk46+oC/xrgm51ezbi5DMeR 96RnkRieO/yVr50xc3g9gb8qWuFgrU9hnq3ttC8nYb CrTFuCfdHz44QiK2AXxL65R3ngds36AxA5txc06cxPRfpBxJIZe6VVU7ZY/D03W/sgSFgRMBV1d+8AWw o0h52ybQ55nfnzyDtePXJb5P5vSRp9niwKtD+hUKy1r7W8gb6upJTajrBXHWk0VtwCTvpMiDOM4hXwdT GQRsCa5DBbh9uFC7h4PBN1r+6vI9IHiHgn+dwDgOqA 7HT1SO+tac6c8UN98M2M898FO/uddRL8ybzhSSiCT/QNEiDArz5yiwmIYF+HyQzepE9P7dXsufO4Yz+z sggN40WP1EdU/yk+OVkRDvz64vqC6SjpC/Wdmt2zQL53gans6RQWw585uC5WTvCU2Vsbtzulpqw4DtF/ +I2zK/Mt+pVAUroqusrkG5gcsVqZ5SR5zisR7y5o6r Lh3B+wELvWzoX02yZra5Ngzxmrg310vQtqf3JNdK8scnpmv6MWRT3c1UEXsbj/6t0Yr5b0E/QnXwDgbU WwVQje0yn9zbHigoMnK36hob0aEe2NI2jqeBkaq8CukWN2WNXq7XlvNT/skT+[employer]+L/ojyeX45jJeFom+ [file] Z+J9dvy/eniJf/environmental compliance inspector/Ozv/vTv/O0//Fu3/+Bv/uT3/4Pf+/GPfviD3/3+937nt9/85o0942u/469/65vf ePedt2+9dfPGb/61r3/tzTcOrn/1K6+/0noJA780Ug 9+1PKzo3v5F251uP5i4octwjW7vmwdn0cJW8neYER/LB9+iT1aB6UGa7lJT27hJ+2/cV8wwVmlL5e7w8 ghCCr886a/6GzJmhYukQnqXuhNAGmvonj9IB96wogBp4+5Sy65tNEJ+pzXWnd1+FDLWoz7CqnvcyxLu+ z5O7r/Zkpy1W6flr+heHd+wX23zFo3scgKIU+/v3XH xYtzT/3RgR/Zll5ZV7t3B3oN6/A135yIbXt3A8/6xmfYqf6ZQ4P+/hq2j5gmP33380uTA7gI9vvyDXuT 186WrhzF/6++v15o69l69A5t+a35/Gb4oj7fR83/9CpbF5t18S9A120q6lmG0s3keplr9O8dz5eWhv/u sMjE5GH9vr6IL45h246+4afHfsk7e//z167/YsktPX XjyYM79/my67+c+hxYkUvhT9AFq8x6jK7ceeY+vyJH6ua+kl9RKHyjgDmv/pRcHapzU94kg74poeFSmP kVO8i83GYxRGsF3MY3XG/Xr/Lhn4g7s2QU141/OLff38/2f6UFxal8pJjHa/nz+oG+x0S3opv133r0Ul Aqp2bx5UttcA6olsM+jeHPX2+6fv2N6//Ki3GyMyhi O3oy/Hj4sQx6vd89a9ha22nZShrx1ZZd0kxCnhCIlPnyx92M+69eDzVvbHmOfPrhhwJHzK/mklC0c6Qe KlCejKfong8az0iOc+dz9vxK8ZY7/IRnpjNXnru1+8yNUMMzt///nM+80PM5rgQ2myf7d/n2hvWhheae SJKzmPuSC26upLtwoK0qb/XrE06Aik62phwnn36gwD keane+9sacxxTqrcPGdq2wpWDmm/CC079tNs4Hp1v+y9d/2nEwyt0Kbjj/c6zS7y1l7f2kyT21rI1vyDTjA [file] VmyrP2owXySKb2HOtaNI5QJPXSH7CCQv== ID Date Data Source [id number] 07/23/2019 10:05:00 AM EST [facility] Name Value Range Interpretation Code Description Data Neelam rce(s) Supporting Document(s) Magnesium [Mass/volume] in Serum or Plasma 1.8 mg/dL 1.8 - 2.4 [facility] ID Date Data Source [id number] 07/23/2019 10:05:00 AM EST [facility] Name Value Range Interpretation Code Description Data Neelam rce(s) Supporting Document(s) Cholesterol [Mass/volume] in Serum or Plasma 250 mg/dL [facility] Triglyceride [Mass/volume] in Serum or Plasma 219 mg/dL [facility] Cholesterol in HDL [Mass/volume] in Serum or Plasma 57 mg/dL [facility] Cholesterol in LDL [Mass/volume] in Serum or Plasma by calculati on 149 mg/dL [facility] CHOL/HDL 4.39 [facility] l \\BLDo\\INTERPRE TATION\\BLDx\\ REFERENCE RANGES (NATIONAL [...] mg/dL VERY HIGH ID Date Data Source [id number] 07/23/2019 10:05:00 AM EST [facility] Name Value Range Interpretation Code Description Data Neelam rce(s) Supporting Document(s) COMPREHENSIVE CHEM PROFILE [facility] COMPREHENSIVE METABOLIC PANEL Sodium [Moles/volume] in Serum or Plasma 140 mEq/L 136 - 145 [facility] Potassium [Moles/volume] in Serum or Plasma 3.9 mEq/L 3.5 - 5.1 [facility] Chloride [Moles/volume] in Serum or Plasma 103 mEq/L 98 - 107 [facility] Carbon dioxide, total [Moles/volume] in Serum or Plasma 26.3 mEq /L 21.0 - 32.0 [facility] Glucose [Mass/volume] in Serum or Plasma 96 mg/dL 70 - 100 [facility] Urea nitrogen [Mass/volume] in Serum or Plasma 20 mg/dL 7 - 18 Above high normal [facility] CREATININE SERUM 0.89 mg/dL 0.55 - 1.02 [facility] AGE 63 yrs [facility] HEIGHT NA [facility] eGFR NON-AFR AMR >60 [facility] eGFR AFR AMR >60 [facility] BUN/CREAT 22 6 - 25 [facility] Protein [Mass/volume] in Serum or Plasma 8.1 g/dL 6.0 - 8.3 [facility] Albumin [Mass/volume] in Serum or Plasma 3.7 g/dL 3.8 - 5.4 Below low normal [facility] GLOBULIN 4.4 g/dL 2.0 - 4.0 Above high normal [facility] A/G RATIO 0.8 0.8 - 2.0 [facility] Calcium [Mass/volume] in Serum or Plasma 9.6 mg/dL 8.8 - 10.2 [facility] Bilirubin.total [Mass/volume] in Serum or Plasma 0.5 mg/dL 0.2 - 1.0 [facility] Bilirubin.direct [Mass/volume] in Serum or Plasma 0.1 mg/dL 0.0 - 0. 2 [facility] INDIRECT BILI 0.4 mg/dL 0.0 - 1.1 [facility] pital ALK PHOSPHATASE 90 U/L 35 - 104 [facility] Aspartate aminotransferase [Enzymatic ac tivity/volume] in Serum or Plasma by With P-5'-P 17 IU/L 7 - 37 [facility] Alanine aminotransferase [Enzymatic acti vity/volume] in Serum or Plasma by With P-5'-P 24 IU/L 12 - 78 [facility] ANION GAP 15 5 - 15 [facility] l Estimated GFR referenc e range: >60ml/min/1.73m >18 years: Calculated using IDMS traceable Study Equation <18 years: Calculated using IDMS tracable Bedside Schartz Equation ID Date Data Source [id number] 07/02/2019 12:50:00 PM [facility] Name: VITA ANDINO : [birth year] Age/Sex: 63F Ordering Provider: Jj Michelle MD Med Rec #: [id number] Reg Status:[facility] Room #: Date of Service: 07/02/19 Report Number: [id number] cc: Jj Michelle MD; Елена Jordan IV, [...] OV> Exam Date/Time: 07/02/19 1250 Order #: [id number] Dictation Date/Time: 07/02/19 1259 Transcribed Date/Time: [employer] Child[employer] Associate: Name Value Range Interpretation Code Description Data Neelam rce(s) Supporting Document(s) Procedure Social History Code Duration Value Status Description Data Source(s ) Alcohol intake 05/01/2020 12:00:00 AM EDT Current non-d deric of alcohol (finding) completed Current non-drinker of alcohol (finding) [facility] Tobacco use and exposure 05/01/2020 12:00:00 AM EDT Never used co mpleted Never used [facility] Smoking 05/01/2020 12:00:00 AM EDT Never smoker completed Never s [facility] Alcohol intake 11/01/2019 12:00:00 AM EDT Current non-d deric of alcohol (finding) completed Current non-drinker of alcohol (finding) [facility] Smoking 11/01/2019 12:00:00 AM EDT Never smoker completed Never s [facility] Vital Signs ID Date Data Source UNK Name Value Range Interpretation Code Description Data Source(s) Body weight 94.80 kg 94.80 kg [facility] Body temperature 36.0 Ann 36.0 Ann [facility] Respiratory rate 18 /min 18 /min [facility] Heart rate 93.0 /min 93.0 /min [facility] Oxygen saturation in Arterial blood by Pulse oximetry 100 % 100 % [facility] Body height 157.4800 cm 157.4800 cm [facility] Body surface area Derived from formula 2.04 m2 2.04 m2 [facility] Diastolic blood pressure 100 mm[Hg] 100 mm[Hg] [facility] Systolic blood pressure 158 mm[Hg] 158 mm[Hg] [facility] Body mass index (BMI) [Ratio] 38.23 kg/m2 38.23 kg/m2 [facility] Body weight 96.16 kg 96.16 kg [facility] Body height 157.4800 cm 157.4800 cm [facility] Body surface area Derived from formula 2.05 m2 2.05 m2 [facility] Body mass index (BMI) [Ratio] 38.77 kg/m2 38.77 kg/m2 [facility] ID Date Data Source [id number] 05/01/2020 06:56:02 PM EDT [facility] Name Value Range Interpretation Code Description Data Source(s) WEIGHT RECORDED 211.8 lb 211.8 lb [facility] Body height Measured 64.02 in 64.02 in [facility] Patient Treatment Plan of Care Planned Activity Planned Date Details Description Data Source (s) Ibuprofen 800 MG Oral Tablet 07/13/2020 12:00:00 AM [facility] Amlodipine 10 MG Oral Tablet 05/29/2020 12:00:00 AM [facility] 24 HR metoprolol succinate 25 MG Extended Release Oral Tablet 05/29/2020 12:00:00 AM [facility] Lisinopril 20 MG Oral Tablet 05/29/2020 12:00:00 AM [facility] Levothyroxine Sodium 0.075 MG Oral Tablet 05/29/2020 12:00:00 AM [facility] Allopurinol 300 MG Oral Tablet 05/29/2020 12:00:00 AM [facility] Azithromycin 250MG Oral Tablet 05/29/2020 12:00:00 AM [facility] Ergocalciferol 53182 UNT Oral Capsule 05/29/2020 12:00:00 AM [facility] 24 HR metoprolol succinate 25 MG Extended Release Oral Tablet 05/29/2020 12:00:00 AM [facility] Lisinopril 20 MG Oral Tablet 05/29/2020 12:00:00 AM [facility] Levothyroxine Sodium 0.075 MG Oral Tablet 05/29/2020 12:00:00 AM ES T [facility] Allopurinol 300 MG Oral Tablet 05/29/2020 12:00:00 AM [facility] Azithromycin 250MG Oral Tablet 05/29/2020 12:00:00 AM [facility] Diclofenac Sodium 0.01 MG/MG Topical Gel [Voltaren] 05/29/20 20 12:00:00 AM [facility] Ergocalciferol 00085 UNT Oral Capsule 05/29/2020 12:00:00 AM [facility] Amlodipine 10 MG Oral Tablet 05/29/2020 12:00:00 AM [facility] 200 ACTUAT Albuterol 0.09 MG/ACTUAT Metered Dose Inhal er [Ventolin] 05/13/2020 [facility] ACTUAT Albuterol 0.09 MG/ACTUAT Metered Dose Inhal er [Ventolin] 05/13/2020 12:00:[address] [facility] Prednisone 5 MG Oral Tablet 05/01/2020 12:00:00 AM [facility] Humira 40 MG/0.4ML Subcutaneous Prefilled Syringe Kit (adalimumab) 04/30/2020 12:00:00 AM [facility] tramadol hydrochloride 50 MG Oral Tablet 04/27/2020 12:00:00 AM [facility] meloxicam 15 MG Oral Tablet 04/03/2020 12:00:00 AM [facility] Adalimumab 40 MG/0.4ML Subcutaneous Pen-injector Kit ( Humira Pen) 11/01/2019 12:00:00 AM [facility] 0.8 ML adalimumab 50 MG/ML Prefilled Syringe [Humira] 08/30/2019 12:00:00 AM [facility]spital Simvastatin 40 MG Oral Tablet 06/19/2019 12:00:00 AM [facility] 0.8 ML adalimumab 50 MG/ML Auto-Injector 11/01/2017 12:00:00 AM [facility]
--- NOTE | 2020-08-03 00:03 | REPVR ---
PROCEDURE INFORMATION: Exam: CT Angiography Head With Contrast Exam date and time: 08/02/2020 11:11 PM Age: 64 years old Clinical indication: Pain; Headache; Additional info: Loss function L jorge TECHNIQUE: Imaging protocol: Computed tomography angiography of the head with intravenous contrast. 3D rendering (Not supervised by radiologist): MIP and/or 3D reconstructed images were created by the technologist. Radiation optimization: All CT scans at this facility use at least one of these dose optimization techniques: automated exposure control; mA and/or kV adjustment per patient size (includes targeted exams where dose is matched to clinical indication); or iterative reconstruction. Contrast material: ISO 370; Contrast volume: 100 ml; Contrast route: INTRAVENOUS (IV); COMPARISON: No relevant prior studies available. FINDINGS: ANTERIOR CIRCULATION: Right internal carotid artery: Intracranial segment is patent with no significant stenosis. No aneurysm. Right middle cerebral artery: Severe stenosis of the M1 segment of the right middle cerebral artery. No occlusion of the right MCA. Right anterior cerebral artery: No occlusion or significant stenosis. No aneurysm. Left internal carotid artery: Atherosclerosis and mild stenosis of the left internal carotid artery. Left middle cerebral artery: No occlusion or significant stenosis. No aneurysm. Left anterior cerebral artery: No occlusion or significant stenosis. No aneurysm. POSTERIOR CIRCULATION: Right vertebral artery: No occlusion or significant stenosis. No aneurysm. Left vertebral artery: No occlusion or significant stenosis. No aneurysm. Basilar artery: No occlusion or significant stenosis. No aneurysm. Right posterior cerebral artery: Persistence of the origin of the right posterior cerebral artery, without significant stenosis or occlusion. Left posterior cerebral artery: No occlusion or significant stenosis. No aneurysm. 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 Brain: No definite mass, mass effect, or midline shift. Scattered foci of hypodensity are identified within the cerebral white matter, suggestive of small vessel ischemic disease. This white matter disease is indeterminate in acuity. Cerebral ventricles: No ventriculomegaly. Mastoid air cells: Mild mastoid effusions bilaterally. Bones/joints: No acute fracture. Soft tissues: Unremarkable. IMPRESSION: 1. Severe stenosis of the M1 segment of the right middle cerebral artery. 2. Atherosclerosis and mild stenosis of the left internal carotid artery. 3. Additional findings described above. Electronically signed by: Colton Pruitt On 08/03/2020 00:03:13 AM
--- NOTE | 2020-08-03 00:11 | REPVR ---
PROCEDURE INFORMATION: Exam: CT Angiography Neck With Contrast Exam date and time: 08/02/2020 11:11 PM Age: 64 years old Clinical indication: Pain; Headache; Additional info: Loss function L jorge TECHNIQUE: Imaging protocol: Computed tomography angiography of the neck with intravenous contrast. 3D rendering (Not supervised by radiologist): MIP and/or 3D reconstructed images were created by the technologist. Radiation optimization: All CT scans at this facility use at least one of these dose optimization techniques: automated exposure control; mA and/or kV adjustment per patient size (includes targeted exams where dose is matched to clinical indication); or iterative reconstruction. Contrast material: ISO 370; Contrast volume: 100 ml; Contrast route: INTRAVENOUS (IV); COMPARISON: No relevant prior studies available. FINDINGS: Right common carotid artery: No significant stenosis. No dissection or occlusion. Increased tortuosity of the right common carotid artery. Right internal carotid artery: Extracranial segment is patent with no stenosis. No dissection or occlusion. Increased tortuosity of the right internal carotid artery. Right external carotid artery: No occlusion or significant stenosis. Right vertebral artery: No significant stenosis. No dissection or occlusion. Left common carotid artery: A bovine aortic arch is visualized, with common origin of the brachiocephalic artery and left common carotid artery. Increased tortuosity of the left common carotid artery, without significant stenosis or occlusion. Left internal carotid artery: Extracranial segment is patent with no stenosis. No dissection or occlusion. Increased tortuosity of the left internal carotid artery. Left external carotid artery: No occlusion or significant stenosis. Left vertebral artery: No significant stenosis. No dissection or occlusion. Subclavian arteries: Venous enhancement and artifact limit evaluation of the right subclavian artery. The left subclavian artery is patent, as visualized. Aorta: Aneurysmal dilatation of the ascending aorta measuring approximately 3.9 cm in diameter. Oropharynx: There is decreased aeration of the bilateral valleculae with prominence of the lingual tonsils. Thyroid: A calcification is seen within the right thyroid lobe posteriorly. Bones/joints: Mild reversal of the lordotic curvature of the cervical spine. Mild anterolisthesis of C3 on C4 and C4 on C5. Degenerative changes are visualized involving the cervical and upper thoracic spine. Soft tissues: No significant soft tissue swelling. Lymph nodes: Scattered nonspecific cervical lymph nodes identified. Lungs: Mild patchy nonspecific ground-glass density within the lungs. Atypical infection cannot be excluded. IMPRESSION: 1. No stenosis or occlusion of the extracranial carotid arteries bilaterally. Increased tortuosity of the bilateral internal and common carotid arteries. 2. Aneurysmal dilatation of the ascending aorta measuring approximately 3.9 cm in diameter. 3. Mild patchy nonspecific ground-glass density within the lungs. Atypical infection cannot be excluded. Clinical correlation recommended. 4. Additional findings described above. REFERENCES: NASCET CRITERIA. The degree of internal carotid artery stenosis is based on NASCET criteria. Normal is no stenosis. Mild is less than 50% stenosis. Moderate is 50-69% stenosis. Severe is 70% to 99% stenosis. Total occlusion is no detectable patent lumen. Electronically signed by: Colton Pruitt On 08/03/2020 00:10:58 AM
[2020-08-03 01:30] VITALS: BP 166/77
== END 2020-08-03 01:48 | disposition short-term general hospital (02) ==
LOC: M ED 22:34
DX: I66.01 Occlusion and stenosis of right middle cerebral artery (principal); G45.9 Transient cerebral ischemic attack, unspecified; I77.810 Thoracic aortic ectasia; I11.9 Hypertensive heart disease without heart failure; E11.9 Type 2 diabetes mellitus without complications; Z79.1 Long term (current) use of non-steroidal anti-inflammatories (NSAID); Z79.84 Long term (current) use of oral hypoglycemic drugs; Z79.51 Long term (current) use of inhaled steroids; Z79.899 Other long term (current) drug therapy; Z88.8 Allergy status to other drugs, medicaments and biological substances
CPT/HCPCS: 70496; 70498; 99285; Q9967

== ENCOUNTER 2020-10-20 16:58 | Inpatient (IN) | payer MEDICAID, MEDICARE ==
[~2020-10-20] VITALS: Ht 162.6 cm; Wt 100.1 kg
[~2020-10-20 16:58] MED LIST changes: +ALLO10TA PO; +AMLO1TAB25 PO; +BUPR150T12 PO; -BUPR150T4 PO; +IBUP-1022 PO; +LEVO100T5 PO; +LISI20TA33 PO; +METF500T13 PO; +METO1TAB32 PO; +METO25TA4 PO; +PRED20TA PO; +PRED5TA PO; +VENTAER INH; +VITA50005 PO
--- NOTE | 2020-10-20 17:36 | REPVR ---
PROCEDURE INFORMATION: Exam: CT Head Without Contrast Exam date and time: 10/20/2020 5:31 PM Age: 64 years old Clinical indication: Other: Neuro symptoms; Additional info: Stroke TECHNIQUE: Imaging protocol: Computed tomography of the head without contrast. Radiation optimization: All CT scans at this facility use at least one of these dose optimization techniques: automated exposure control; mA and/or kV adjustment per patient size (includes targeted exams where dose is matched to clinical indication); or iterative reconstruction. Other technique: STROKE PROTOCOL was implemented. COMPARISON: CT ANGIO HEAD 08/02/2020 11:07 PM FINDINGS: Brain: There is no acute intracranial hemorrhage, cerebral edema, or midline shift. Mild chronic small vessel ischemic disease is present in the cerebral white matter. Cerebral ventricles: No hydrocephalus. Bones/joints: No acute fracture. Paranasal sinuses: There is no acute sinusitis. Mastoid air cells: Poor pneumatization of the mastoids is likely due to remote/chronic inflammation. Orbital cavity: Unremarkable as visualized. Soft tissues: Unremarkable. IMPRESSION: 1. No acute intracranial abnormality. 2. Chronic findings as discussed above. 3. [place] Stroke Program Early CT Score (ASPECTS) = 10 Electronically signed by: Jon Dunn On 10/20/2020 17:37:09 PM
[2020-10-20 17:54] LABS: BASO # 0.1 10^3/uL (0.0-0.2); BASO % 0.6 % (0.0-1.0); EOS # 0.4 10^3/uL (0.0-0.5); EOS % 2.9 % (0.0-3.0); HEMATOCRIT 45.8 % (36.0-47.0); HEMOGLOBIN 14.7 g/dl (12.0-15.5); LYMPH # 3.9 10^3/uL (1.5-5.0); LYMPH % 32.4 % (24.0-44.0); MEAN CORPUSCULAR HEMOGLOBIN 28.3 pg (27.0-33.0); MEAN CORPUSCULAR HGB CONC 32.1 g/dl (32.0-36.5); MEAN CORPUSCULAR VOLUME 88.2 fl (80.0-96.0); MONO # 0.7 10^3/uL (0.0-0.8); MONO % 5.5 % (2.0-8.0); NEUTROPHILS % 57.9 % (36.0-66.0); PLATELET COUNT, AUTOMATED 369 10^3/uL (150-450); RED BLOOD COUNT 5.19 10^6/uL (4.00-5.40); WHITE BLOOD COUNT 12.1 10^3/uL (4.0-10.0)
[2020-10-20] MEDS ORDERED: ISOVUE-370 76% 100ML VIAL As Ordered ONE (17:54)
[2020-10-20 18:03] LABS: INR 0.94; PROTHROMBIN TIME 12.7 SECONDS (12.5-14.3)
--- NOTE | 2020-10-20 18:03 | ECGEPIP ---
[facility] - ED Test Date: 2020-10-20 Pat Name: VITA BLAKE Department: Room: - Gender: Female Rn Licensed Practical: Galilea TIAN : 1955 Requested By: ABNER Archibald Order Number: [id number] Reading MD: Lucia Zendejas Measurements Intervals [place] Rate: 82 P: 40 LA: 140 QRS: 8 QRSD: 78 T: 33 QT: 390 QTc: 455 Interpretive Statements Normal sinus rhythm no prior Electronically Signed on 10-20-2020 18:03:35 EDT by Lucia Zendejas
[2020-10-20 18:04] LABS: PARTIAL THROMBOPLASTIN TIME 24.1 SECONDS (24.2-38.5)
[2020-10-20 18:14] VITALS: BP 147/67
--- NOTE | 2020-10-20 18:25 | REPVR ---
PROCEDURE INFORMATION: Exam: CT Angiography Neck With Contrast Exam date and time: 10/20/2020 6:06 PM Age: 64 years old Clinical indication: Other: AMS; Additional info: CVA - nursing interventions must not delay CT TECHNIQUE: Imaging protocol: Computed tomography angiography of the neck with intravenous contrast. 3D rendering (Not supervised by radiologist): MIP and/or 3D reconstructed images were created by the technologist. Radiation optimization: All CT scans at this facility use at least one of these dose optimization techniques: automated exposure control; mA and/or kV adjustment per patient size (includes targeted exams where dose is matched to clinical indication); or iterative reconstruction. Contrast material: ISOVUE 370; Contrast volume: 100 ml; Contrast route: INTRAVENOUS (IV); COMPARISON: CT ANGIO NECK 08/02/2020 11:07 PM FINDINGS: Right common carotid artery: No stenosis. No dissection or occlusion. Right internal carotid artery: No stenosis of the extracranial segment. No dissection or occlusion. Right external carotid artery: No occlusion or stenosis of the origin. Right vertebral artery: No stenosis. No dissection or occlusion. Left common carotid artery: No stenosis. No dissection or occlusion. Left internal carotid artery: No stenosis of the extracranial segment. No dissection or occlusion. Left external carotid artery: No occlusion or stenosis of the origin. Left vertebral artery: No stenosis. No dissection or occlusion. Bones/joints: No acute fracture. Soft tissues: Normal. No significant soft tissue swelling. IMPRESSION: No stenosis or occlusion. REFERENCES: NASCET CRITERIA. The degree of internal carotid artery stenosis is based on NASCET criteria. Normal is no stenosis. Mild is less than 50% stenosis. Moderate is 50-69% stenosis. Severe is 70% to 99% stenosis. Total occlusion is no detectable patent lumen. Electronically signed by: Jon Dunn On 10/20/2020 18:25:47 PM
[2020-10-20 18:29] LABS: BLOOD UREA NITROGEN 13 MG/DL (7-18); CALCIUM LEVEL 9.3 MG/DL (8.8-10.2); CARBON DIOXIDE LEVEL 25 MEQ/L (21-32); CHLORIDE LEVEL 105 MEQ/L (98-107); CK-MB VALUE MASS 1.3 NG/ML (<3.6); CPK CREATINE PHOSPHOKINASE 39 U/L (26-192); CREATININE FOR GFR 0.99 MG/DL (0.55-1.30); GLOMERULAR FILTRATION RATE 59.7 (>45); GLUCOSE, FASTING 230 MG/DL (70-100); MB/CK RELATIVE INDEX 3.33 (< OR =4); POTASSIUM SERUM 3.9 MEQ/L (3.5-5.1); SODIUM LEVEL 138 MEQ/L (136-145); TROPONIN I < 0.02 NG/ML (< 0.10)
--- NOTE | 2020-10-20 18:32 | REPVR ---
PROCEDURE INFORMATION: Exam: CT Angiography Head With Contrast Exam date and time: 10/20/2020 6:06 PM Age: 64 years old Clinical indication: Other: AMS; Additional info: CVA - nursing interventions must not delay CT TECHNIQUE: Imaging protocol: Computed tomography angiography of the head with intravenous contrast. 3D rendering (Not supervised by radiologist): MIP and/or 3D reconstructed images were created by the technologist. Radiation optimization: All CT scans at this facility use at least one of these dose optimization techniques: automated exposure control; mA and/or kV adjustment per patient size (includes targeted exams where dose is matched to clinical indication); or iterative reconstruction. Contrast material: ISOVUE 370; Contrast volume: 100 ml; Contrast route: INTRAVENOUS (IV); COMPARISON: CT ANGIO HEAD 08/02/2020 11:07 PM FINDINGS: ANTERIOR CIRCULATION: Right internal carotid artery: Unremarkable. Intracranial segment is patent with no significant stenosis. No aneurysm. Right middle cerebral artery: There is critical stenosis or near occlusion of the proximal/mid right M1 segment, similar to the previous exam. The distal right M1 segment and its branches appear patent but mildly diminutive in size. Right anterior cerebral artery: Unremarkable. No occlusion or significant stenosis. No aneurysm. Left internal carotid artery: Atherosclerotic calcifications are seen involving the left cavernous internal carotid artery. There is no significant stenosis. Left middle cerebral artery: Unremarkable. No occlusion or significant stenosis. No aneurysm. Left anterior cerebral artery: Unremarkable. No occlusion or significant stenosis. No aneurysm. POSTERIOR CIRCULATION: Right vertebral artery: Unremarkable. No occlusion or significant stenosis. No aneurysm. Left vertebral artery: Unremarkable. No occlusion or significant stenosis. No aneurysm. Basilar artery: Unremarkable. No occlusion or significant stenosis. No aneurysm. Right posterior cerebral artery: There is persistent origin of the right posterior cerebral artery. Left posterior cerebral artery: Unremarkable. No occlusion or significant stenosis. No aneurysm. Brain: No definite mass, mass effect, or midline shift. Cerebral ventricles: No ventriculomegaly. Bones/joints: Unremarkable. No acute fracture. Soft tissues: Unremarkable. IMPRESSION: There is critical stenosis or near occlusion of the proximal/mid right M1 segment, similar to the previous exam. Electronically signed by: Jon Dunn On 10/20/2020 18:32:55 PM
--- NOTE | 2020-10-20 18:32 | REP ---
INDICATION: CVA. COMPARISON: . TECHNIQUE: Upright PA and lateral chest. FINDINGS: The lung hammer are clear. Cardiac size is normal. The yumiko, mediastinum and skeletal structures are unremarkable. IMPRESSION: Essentially negative portable chest <Electronically signed by Olu Galeas > 10/20/20 4421
[2020-10-20 18:40] VITALS: BP 151/82
[2020-10-20] MEDS ORDERED: LEVO75TA4 PO (19:17)
[2020-10-20] MEDS ORDERED: ATOR80TA59 PO (19:17)
[2020-10-20] MEDS ORDERED: CLOP75TA2 PO (19:17)
[2020-10-20] MEDS ORDERED: ACET25TA12 PO (19:17)
[2020-10-20] MEDS ORDERED: ASPI32ECTA PO (19:17)
[2020-10-20] MEDS ORDERED: PANT40TA29 PO (19:17)
[2020-10-20] MEDS ORDERED: AMLO1TAB25 PO (19:17)
[2020-10-20] MEDS ORDERED: MOBI4TAB PO (19:17)
[2020-10-20] MEDS ORDERED: METO25TA4 PO (19:17)
[2020-10-20] MEDS ORDERED: LISI20TA33 PO (19:18)
[2020-10-20] MEDS ORDERED: GLUCOSE 4GM CHEW TABLET PO PRN (19:50)
[2020-10-20] MEDS ORDERED: GLUCAGON INJ 1MG VIAL SC PRN (19:50)
[2020-10-20] MEDS ORDERED: DEXTROSE 50% 50 ML SYRINGE IV PRN (19:50)
[2020-10-20 19:53] LABS: RSV AMPLIFICATION NEGATIVE (NEGATIVE)
[2020-10-20] MEDS ORDERED: ALBUTEROL 90 MCG/ACT 8GM HFA INHALER INH PRN (20:05)
--- NOTE | 2020-10-20 20:19 | HPEPDOC ---
[facility] Medical History & Physical Date of Admission Oct 20, 2020 Date of Service: Oct 20, 2020 History and Physical CHIEF COMPLAINT: Right sided weakness HISTORY OF PRESENT ILLNESS: This is a 64-year-old female history of sarcoidosis, RA, long QT syndrome, hypertension, non-insulin dependent diabetes, TIA July 2020 who was seen at [facility] in July with TIA and transfer to [facility] for intracranial artery stenosis where no intracranial intervention was done. Patient presents again with TIA. Endorses that 3 hours ago she was having left facial numbness as well as left arm and leg weakness. At the time that she was seen patient's symptoms have all completely resolved. Patient denies having any upper or lower extremity weakness and denies having any facial numbness. Her son was with her at bedside. Patient denies any chest pain or shortness of breath denies abdominal pain denies trouble urinating denies lower extremity pain. Patient denies trouble with speech or swallowing denies a headache or trouble with her vision In the emergency department Dr. Landin [facility] who advised patient does not need to be transferred for intracranial intervention at this time. Her NIH stroke in the ED is 0. She can be admitted with MRA of the brain. Dr. Anglin neurologist verification manager was contacted and agrees with the plan to admit the patient for stroke workup and follow-up with him in the clinic. Patient was noted to have a cast on her right lower extremity she tells me that this was ordered by her market research worker but cannot elaborate further as to why she has it in place. PAST MEDICAL/SURGICAL HISTORY: Known M1 intracranial artery stenosis from Jul 2020 Sarcoidosis Rheumatoid arthritis Long QT syndrome Hypertension Vdd-rjfshvb-pqpdnbjem diabetes Gout GERD Depression Right foot fusion surgery Right wrist surgery with plate Hysterectomy SOCIAL HISTORY: Denies alcohol use Denies tobacco use Denies illicit drug use FAMILY HISTORY: Reviewed and none contributory to this admission ALLERGIES: Please see below. REVIEW OF SYSTEMS: 10 point review of systems complete all negative otherwise stated in HPI HOME MEDICATIONS: Please see below. PHYSICAL EXAMINATION: Constitutional: Awake and alert, in no apparent distress ENT: Sclera are clear. Mucosa is moist. Respiratory: Lungs CTA bilaterally. No respiratory distress. Cardiovascular: RRR S1 and S2 are normal, no murmur Gastrointestinal: Abdomen is soft, obese, non distended, non tender, BS present. Musculoskeletal: No lower extremity edema. RLE in Cast per market research worker. mental status: The patient is awake, alert, oriented to name, location, and date. Cranial nerves: Pupils are equal, round, and reactive to light. Extraocular muscles intact. Visual hammer full bilaterally. Smile is symmetrical. Tongue is midline. Intact sensation on both sides of face. Motor: At least 4+/5 in both upper and lower extremities without any drifting. Difficult to examine RLE due to cast. Sensory: Intact to sensation bilaterally. Reflexes: Symmetrical, non-hyperreflexic. Not pathological. Coordination: Eriafu-xv-wobi grossly intact. LABORATORY DATA: See below. IMAGING: See chart for all imaging CT head angio: There is critical stenosis or near occlusion of the proximal/mid right M1 segment, similar to the previous exam. MICROBIOLOGY: Please see below. ASSESSMENT/PLAN # Possible TIA stroke workup initiated: CT head negative for intracranial hemorrhage or edema. - CT angio showing stenosis right M1 similar to prior exam in tele stroke contacted from ED by Dr Landin, do not recommend transfer for intervention, recommended admission and obtaining MRI brain. No intracranial intervention, medical management. NIH stroke scale 0 in the ED - Plavix and ASA daily, Atorvastatin 80 mg QHS - MRI brain pending - Carotid ultrasound ordered - Echo with bubble for repeat TIA ordered - NPO, pending swallow eval. npo - Neurology Dr. Frederick contact from ED, aware patient is here for stroke workup recommends continuing both ASA and statin and continuing with stroke workup and following up in clinic. - PT/OT eval - Fall & seizure precautions # Sarcoidosis, RA: hold humira for now. # Long QT syndrome: Continue home metoprolol. Avoid QTc prolonging drugs. # Hypothyroidism: resume Synthroid. # DM: ISS. Frequent Accu-Cheks. Hypoglycemic precautions. Hold metformin. # Hypertension: Continue home meds. Monitor and titrate # Gout: Continue allopurinol # Depression: Continue citalopram # GERD: continue PPI # DVT prophylaxis: Heparin A Yousef Hospitalist Vital Signs Vital Signs Date Time Temp Pulse Resp B/P (MAP) Pulse Ox O2 Delivery O2 Flow Rate FiO2 10/20/20 18:40 98.0 81 16 151/82 96 Room Air 10/20/20 17:31 2.0 Laboratory Data Labs 24H Laboratory Tests 2 10/20/20 17:36: POC Glucose (Misc Panel) 221H, POC Sodium (Misc Panel) 139, POC Potassium (Misc Panel) 3.8, POC Chloride (Misc Panel) 104, POC Total CO2 (Misc Panel) 22.0L, POC Blood Urea Nitrogen (Misc Panel 12, POC Ionized Calcium (Misc Panel) 4.6, POC Creatinine (Misc Panel) 0.8, POC Hematocrit (Misc Panel) 43.0 10/20/20 17:39: POC Prothrombin Time (Misc) 11.9L, POC INR (Misc) 1.0 10/20/20 17:40: Immature Granulocyte % (Auto) 0.7, Neutrophils (%) (Auto) 57.9, Lymphocytes (%) (Auto) 32.4, Monocytes (%) (Auto) 5.5, Eosinophils (%) (Auto) 2.9, Basophils (%) (Auto) 0.6, Neutrophils # (Auto) 7.0, Lymphocytes # (Auto) 3.9, Monocytes # (Auto) 0.7, Eosinophils # (Auto) 0.4, Basophils # (Auto) 0.1, Nucleated Red Blood Cells % (auto) 0.0, Prothrombin Time 12.7, Prothromb Time International Ratio 0.94, Activated Partial Thromboplast Time 24.1L, Anion Gap 8, Glomerular Filtration Rate 59.7, Calcium Level 9.3, Total Creatine Kinase 39, Creatine Lyn se MB 1.3, Creatine Kinase MB Relative Index 3.33, Troponin I < 0.02 10/20/20 18:23: Bedside Glucose (Misc Panel) 170H 10/20/20 18:43: Coronavirus (COVID-19)(PCR) NEGATIVE, Influenza Type A (RT-PCR) NEGATIVE, Influenza Type B (RT-PCR) NEGATIVE, Respiratory Syncytial Virus (PCR) NEGATIVE CBC/BMP Laboratory Tests 10/20/20 17:40 Home Medications Scheduled Adalimumab (Humira) 40 Mg/0.8 Ml Kit, 40 MG SC QWEEK FRIDAYS Allopurinol (Allopurinol) 100 Mg Tablet, 100 MG PO BID Amlodipine Besylate (Amlodipine Besylate) 10 Mg Tablet, 10 MG PO DAILY Aspirin (Aspirin EC) 325 Mg Tablet.dr, 325 MG PO DAILY Atorvastatin Calcium (Atorvastatin Calcium) 80 Mg Tablet, 80 MG PO DAILY Citalopram Hydrobromide (Celexa) 40 Mg Tab, 40 MG PO QHS Clopidogrel Bisulfate (Clopidogrel) 75 Mg Tablet, 75 MG PO DAILY Levothyroxine Sodium (Levothyroxine Sodium) 75 Mcg Tablet, 75 MCG PO QAM Lisinopril (Lisinopril) 20 Mg Tablet, 20 MG PO DAILY Meloxicam (Mobic) 7.5 Mg Tablet, 7.5 MG PO DAILY WITH FOOD Metformin HCl (Metformin HCl) 500 Mg Tablet, 1,000 MG PO DAILY Metoprolol Tartrate (Metoprolol Tartrate) 25 Mg Tablet, 25 MG PO BID Pantoprazole Sodium (Pantoprazole Sodium) 40 Mg Tablet.dr, 40 MG PO BID Scheduled PRN Acetaminophen/Diphenhydramine (Acetaminophen Pm Caplet) 1 Each Tablet, 2 TAB PO QHS PRN for SLEEP Albuterol Sulfate (Ventolin Hfa) 18 Gm Hfa.aer.ad, 2 PUFF INH Q6H PRN for DOM RTNESS OF BREATH Allergies Coded Allergies: levofloxacin (Verified Allergy, Severe, " swelled up and couldn't breath", 08/02/20) infliximab (Verified Adverse Reaction, Severe, coughing, 10/20/20) A-FIB/CHADSVASC A-FIB History Current/History of A-Fib/PAF?: No IVETT BOWMAN MD Oct 20, 2020 20:18
--- NOTE | 2020-10-20 21:36 | REPVR ---
PROCEDURE INFORMATION: Exam: MR Head Without Contrast Exam date and time: 10/20/2020 8:20 PM Age: 64 years old Clinical indication: Weakness, extremity; Patient HX: Left sided weakness that has since subsided; Additional info: CVA TECHNIQUE: Imaging protocol: MR of the head without contrast. COMPARISON: 1. CT Head without contrast 10/20/2020 5:[address] ANGIO HEAD 10/20/2020 5:59:07 PM FINDINGS: Brain: There are three small foci of restricted diffusion in the right parietal lobe measuring up to 6 mm and a 4 mm focus of restricted diffusion in the right temporal lobe, which are compatible with acute infarcts. There are non-specific foci of T2 and FLAIR hyperintensity in the periventricular and subcortical white matter and gillian, which are likely the sequela of chronic small vessel ischemic injury. No acute intracranial hemorrhage is seen. No mass effect, midline shift, or herniation is noted. Cerebral ventricles: Normal for age. No hydrocephalus. Bones/joints: Unremarkable. Paranasal sinuses: There is mild mucosal thickening in the ethmoid and frontal sinuses. No air-fluid levels are noted in the sinuses. Mastoid air cells: The mastoid air cells are well-aerated. No mastoid effusion. Orbital cavity: Unremarkable. Soft tissues: Unremarkable. IMPRESSION: Small acute infarcts involving the right parietal lobe and right temporal lobe measuring up to 6 mm. Electronically signed by: Dane Lambert On 10/20/2020 21:36:39 PM
--- NOTE | 2020-10-20 21:42 | REPVR ---
PROCEDURE INFORMATION: Exam: US Duplex Bilateral Extracranial Arteries Exam date and time: 10/20/2020 9:02 PM Age: 64 years old Clinical indication: Numbness / parasthesia and weakness, extremity and weakness, facial; Left; Additional info: Stroke workup TECHNIQUE: Imaging protocol: Real-time Duplex ultrasound scan of the bilateral carotid and vertebral arteries combining ramirez scale, color Doppler and spectral waveform analysis. Bilateral exam. COMPARISON: CT ANGIO NECK 10/20/2020 5:59 PM FINDINGS: Right common carotid artery: Unremarkable. No occlusion or significant stenosis. Waveforms are normal. Peak systolic velocity of 68.1 cm/s. Right internal carotid artery: Unremarkable. No occlusion or significant stenosis. Waveforms are normal. Peak systolic velocity of 62.9 cm/s. Right ICA/CCA ratio: 0.92. Within normal limits (<2). Right external carotid artery: No significant stenosis in the origin. Peak systolic velocity of 107.8 cm/s. Right vertebral artery: Unremarkable. Antegrade flow. Peak systolic velocity of 27.8 cm/s. Left common carotid artery: Unremarkable. No occlusion or significant stenosis. Waveforms are normal. Peak systolic velocity of 81.3 cm/s. Left internal carotid artery: Unremarkable. No occlusion or significant stenosis. Waveforms are normal. Peak systolic velocity of 66.8 cm/s. Left ICA/CCA ratio: 0.82. Within normal limits (<2). Left external carotid artery: No significant stenosis in the origin. Peak systolic velocity of 100.7 cm/s. Left vertebral artery: Unremarkable. Antegrade flow. Peak systolic velocity of 34 cm/s. IMPRESSION: No carotid arterial stenosis. REFERENCES: SRU CRITERIA. The degree of internal carotid artery stenosis is based on criteria defined by the Society of Radiologists in Ultrasound (SRU). Normal is no stenosis. Mild is less than 50% stenosis. Moderate is 50-69% stenosis. Severe is greater than 69% stenosis to near occlusion. Near occlusion is a markedly narrowed lumen. Total occlusion is no detectable patent lumen. Electronically signed by: Dane Lambert On 10/20/2020 21:42:35 PM
[2020-10-20] MEDS: METOPROLOL TART 25 MG TABLET PO SCH (22:13)
[2020-10-20] MEDS: ATORVASTATIN 20 MG TAB PO SCH (22:13)
[2020-10-20] MEDS: CLOPIDOGREL 75 MG TAB PO SCH (22:14)
[2020-10-20] MEDS: allopurinoL 100 MG TAB PO SCH (22:14)
[2020-10-20] MEDS: PANTOPRAZOLE 40MG TAB (PROTONIX) PO SCH (22:14)
[2020-10-20] MEDS: CitaloPRAM (CeleXA) 20 MG TAB PO SCH (22:14)
--- NOTE | 2020-10-20 22:14 | REPVR ---
PROCEDURE INFORMATION: Exam: MRA Head Without Contrast; Arteriography Exam date and time: 10/20/2020 8:20 PM Age: 64 years old Clinical indication: Patient HX: Left sided weakness that has since subsided; Additional info: CVA TECHNIQUE: Imaging protocol: Magnetic resonance angiography head without contrast. Exam focused on the arteries. COMPARISON: 1. CT ANGIO HEAD 2020-10-20 17:[address] ANGIO HEAD 2020-08-02 23:07 FINDINGS: ANTERIOR CIRCULATION: Right internal carotid artery: Intracranial segment is patent with no significant stenosis. No aneurysm. Right middle cerebral artery: Narrowing with loss of flow related signal within the right middle cerebral artery with focal severe stenosis/occlusion in the M1 segment. Mildly diminished flow related signal more peripheral branches. Right anterior cerebral artery: No occlusion or significant stenosis. No aneurysm. Left internal carotid artery: Intracranial segment is patent with no significant stenosis. No aneurysm. Left middle cerebral artery: Mild left MCA narrowing. Left anterior cerebral artery: No occlusion or significant stenosis. No aneurysm. POSTERIOR CIRCULATION: Right vertebral artery: No occlusion or significant stenosis. No aneurysm. Left vertebral artery: No occlusion or significant stenosis. No aneurysm. Basilar artery: No occlusion or significant stenosis. No aneurysm. Right posterior cerebral artery: No occlusion or significant stenosis. No aneurysm. Left posterior cerebral artery: No occlusion or significant stenosis. No aneurysm. IMPRESSION: Unchanged focal severe stenosis/near occlusion of the mid right MCA M1 segment. Electronically signed by: Zoltan Doll On 10/20/2020 22:15:00 PM
[2020-10-20] MEDS: HEPARIN SOD (PORCINE) 5000UNITS/ML 1ML VIAL/SYRINGE SQ SCH (22:19)
[2020-10-21] VITALS (9 sets, daily range): BP systolic 124–146; BP diastolic 69–94
[2020-10-21] MEDS ORDERED: ACETAMINOPHEN TAB 650MG DOSE (2X325MG) PO ONE (04:35)
[2020-10-21] MEDS: LEVOTHYROXINE 75MCG TABLET (0.075MG) PO SCH (05:05)
[2020-10-21] MEDS: HEPARIN SOD (PORCINE) 5000UNITS/ML 1ML VIAL/SYRINGE SQ SCH ×3 (05:06→21:36)
[2020-10-21] MEDS: HumaLOG INSULIN (NovoLOG) PER UNIT SC SCH ×4 (05:08→18:30)
[2020-10-21 05:46] LABS: BASO # 0.1 10^3/uL (0.0-0.2); BASO % 0.7 % (0.0-1.0); EOS # 0.5 10^3/uL (0.0-0.5); EOS % 3.5 % (0.0-3.0); HEMATOCRIT 43.5 % (36.0-47.0); HEMOGLOBIN 13.9 g/dl (12.0-15.5); LYMPH # 5.1 10^3/uL (1.5-5.0); LYMPH % 38.8 % (24.0-44.0); MEAN CORPUSCULAR HEMOGLOBIN 28.4 pg (27.0-33.0); MONO # 0.8 10^3/uL (0.0-0.8); NEUTROPHILS # 6.7 10^3/uL (1.5-8.5); NEUTROPHILS % 50.5 % (36.0-66.0); PLATELET COUNT, AUTOMATED 391 10^3/uL (150-450); RED BLOOD COUNT 4.89 10^6/uL (4.00-5.40)
[2020-10-21 05:52] LABS: WHITE BLOOD COUNT 13.3 10^3/uL (4.0-10.0)
[2020-10-21 06:16] LABS: BLOOD UREA NITROGEN 13 MG/DL (7-18); CALCIUM LEVEL 9.2 MG/DL (8.8-10.2); CARBON DIOXIDE LEVEL 25 MEQ/L (21-32); CHLORIDE LEVEL 105 MEQ/L (98-107); CHOLESTEROL LEVEL 229 MG/DL (<200); CHOLESTEROL RISK RATIO 5.204 (<5); CREATININE FOR GFR 0.79 MG/DL (0.55-1.30); GLOMERULAR FILTRATION RATE > 60.0 (>45); GLUCOSE, FASTING 131 MG/DL (70-100); HDL CHOLESTEROL 44 MG/DL (>40); NON-HDL-C 185 MG/DL; POTASSIUM SERUM 3.9 MEQ/L (3.5-5.1); SODIUM LEVEL 136 MEQ/L (136-145); TRIGLYCERIDES LEVEL 401 MG/DL (<150)
[2020-10-21 06:19] LABS: HEMOGLOBIN A1c 6.8 %
[2020-10-21] MEDS: allopurinoL 100 MG TAB PO SCH ×2 (10:56→20:15)
[2020-10-21] MEDS: METOPROLOL TART 25 MG TABLET PO SCH (10:56)
[2020-10-21] MEDS: CLOPIDOGREL 75 MG TAB PO SCH (10:57)
[2020-10-21] MEDS: PANTOPRAZOLE 40MG TAB (PROTONIX) PO SCH ×2 (10:57→20:15)
[2020-10-21] MEDS: ASPIRIN ENTERIC 325 MG TAB PO SCH (10:57)
[2020-10-21] MEDS: MELOXICAM (MOBIC) 7.5 MG TAB PO SCH (10:57)
[2020-10-21] MEDS ORDERED: GLUCOSE 4GM CHEW TABLET PO PRN (12:10)
[2020-10-21] MEDS ORDERED: GLUCAGON INJ 1MG VIAL SC PRN (12:10)
[2020-10-21] MEDS ORDERED: DEXTROSE 50% 50 ML SYRINGE IV PRN (12:10)
[2020-10-21] MEDS: NS 1,000 ML IV SCH (16:25)
[2020-10-21] MEDS: ATORVASTATIN 20 MG TAB PO SCH (20:15)
[2020-10-21] MEDS: CitaloPRAM (CeleXA) 20 MG TAB PO SCH (20:15)
[2020-10-21] MEDS ORDERED: HumaLOG INSULIN (NovoLOG) PER UNIT SC SCH (21:00)
--- NOTE | 2020-10-21 22:54 | IPNPDOC ---
Subjective Date Seen The patient was seen on 10/21/20. Subjective Chief Complaint/HPI Mrs. Andino is a 64 year old female with right intracranial artery stenosis and TIA in July 2020 who presented for left arm and left leg weakness. No events on telemetry. This morning, patient feels well and has no residual weakness. MRI does demonstrate right parietal and right temporal acute ischemic stroke. Spoke with neurology. Patient will need to maintain blood pressure between 140 to 180 for ablest 24 hours before considering discharge. Patient passed PT/OT/ST. Objective Physical Examination General Exam: Positive: Alert, Cooperative Eye Exam: Positive: EOMI; Negative: Sclera icteric ENT Exam: Positive: Atraumatic Neck Exam: Positive: Supple Chest Exam: Positive: Clear to auscultation; Negative: Rales, Rhonchi, Wheezing Heart Exam: Positive: Rate Normal, Regular Rhythm Abdomen Exam: Positive: Normal bowel sounds, Soft; Negative: Tenderness Extremity Exam: Negative: Edema Neuro Exam: Positive: Normal Speech Psych Exam: Positive: Mental status NL, Mood NL Assessment /Plan Assessment Mrs. Andino is a 64 year old female with right intracranial artery stenosis and TIA in July 2020 who presented for left arm and left leg weakness. She has acute right parietal and temporal stroke. Neurology is recommending 24 hours of permissive hypertension, allowing for BP to be between 140 to 180. Patient's BP is below goal, so patient will start IVF to increase blood pressure. Plan/VTE VTE Prophylaxis Ordered?: Yes Plan 1. Right parietal and temporal CVA -Secondary to mid right MCA PR severe stenosis -Continue aspirin, Plavix, and Atorvastatin -HbA1c 6.8 -Pending echocardiogram -Neurology is recommending maintaining blood pressure between 140 to 180 for 24 hours. Will give IVF to maintain blood pressure -Passed PT/OT/ST 2. Sarcoidosis and Rheumatoid arthritis -Hold Humira while inpatient 3. Long QT syndrom -Continue metoprolol 4. Hypothyroidism -Continue levothyroxine 5. DM -Insulin sliding scale 6. Gout -Continue allopurinol 7. Depression -Continue citalopram 8. GERD -Continue PPI 9. DVT ppx -Heparin Disposition: Possible discharge tomorrow VS, I&O, 24H, Fishbone Vital Signs/I&O Vital Signs Date Time Temp Pulse Resp B/P (MAP) Pulse Ox O2 Delivery O2 Flow Rate FiO2 10/21/20 20:20 124/74 10/21/20 20:00 98.6 59 17 93 Room Air 10/20/20 17:31 2.0 I&O- Last 24 Hours up to 6 AM 10/21/20 05:59 Intake Total 0 ml Output Total 550 ml Balance -550 ml Laboratory Data 24H LABS Laboratory Tests 2 10/21/20 00:52: Bedside Glucose (Misc Panel) 126H 10/21/20 05:08: Bedside Glucose (Misc Panel) 127H 10/21/20 05:29: Immature Granulocyte % (Auto) 0.5, Neutrophils (%) (Auto) 50.5, Lymphocytes (%) (Auto) 38.8, Monocytes (%) (Auto) 6.0, Eosinophils (%) (Auto) 3.5H, Basophils (%) (Auto) 0.7, Neutrophils # (Auto) 6.7, Lymphocytes # (Auto) 5.1H, Monocytes # (Auto) 0.8, Eosinophils # (Auto) 0.5, Basophils # (Auto) 0.1, Nucleated Red Blood Cells % (auto) 0.0, Anion Gap 6L, Glomerular Filtration Rate > 60.0, Estimated Mean Plasma Glucose 148H, Hemoglobin A1c 6.8, Calcium Level 9.2, Triglycerides Level 401H, Total Cholesterol 229H, LDL Cholesterol , Non-HDL Cholesterol (LDL + VLDL) 185, Total HDL Cholesterol 44, Cholesterol/HDL Ratio 5.204H 10/21/20 12:46: Bedside Glucose (Misc Panel) 114 10/21/20 17:59: Bedside Glucose (Misc Panel) 170H 10/21/20 21:33: Bedside Glucose (Misc Panel) 102 CBC/BMP Laboratory Tests 10/21/20 05:29 VANDANA PICKENS DO Oct 21, 2020 22:54
[2020-10-22] MEDS: NS 1,000 ML IV SCH (01:39)
[2020-10-22 04:00] VITALS: BP 135/67
[2020-10-22] MEDS: LEVOTHYROXINE 75MCG TABLET (0.075MG) PO SCH (05:42)
[2020-10-22] MEDS: HEPARIN SOD (PORCINE) 5000UNITS/ML 1ML VIAL/SYRINGE SQ SCH (05:42)
[2020-10-22 06:25] LABS: HEMATOCRIT 41.4 % (36.0-47.0); HEMOGLOBIN 13.1 g/dl (12.0-15.5); MEAN CORPUSCULAR HEMOGLOBIN 28.1 pg (27.0-33.0); MEAN CORPUSCULAR HGB CONC 31.6 g/dl (32.0-36.5); MEAN CORPUSCULAR VOLUME 88.8 fl (80.0-96.0); PLATELET COUNT, AUTOMATED 312 10^3/uL (150-450); RED BLOOD COUNT 4.66 10^6/uL (4.00-5.40); WHITE BLOOD COUNT 10.9 10^3/uL (4.0-10.0)
[2020-10-22 06:55] LABS: BLOOD UREA NITROGEN 18 MG/DL (7-18); CALCIUM LEVEL 8.6 MG/DL (8.8-10.2); CARBON DIOXIDE LEVEL 26 MEQ/L (21-32); CHLORIDE LEVEL 108 MEQ/L (98-107); CREATININE FOR GFR 0.67 MG/DL (0.55-1.30); GLOMERULAR FILTRATION RATE > 60.0 (>45); GLUCOSE, FASTING 100 MG/DL (70-100); POTASSIUM SERUM 3.9 MEQ/L (3.5-5.1); SODIUM LEVEL 142 MEQ/L (136-145)
[2020-10-22] MEDS: HumaLOG INSULIN (NovoLOG) PER UNIT SC SCH (07:30)
[2020-10-22 07:36] VITALS: BP 165/79
[2020-10-22] MEDS: ASPIRIN ENTERIC 325 MG TAB PO SCH (08:16)
[2020-10-22] MEDS: MELOXICAM (MOBIC) 7.5 MG TAB PO SCH (08:16)
[2020-10-22] MEDS: PANTOPRAZOLE 40MG TAB (PROTONIX) PO SCH (08:16)
[2020-10-22] MEDS: CLOPIDOGREL 75 MG TAB PO SCH (08:16)
[2020-10-22] MEDS: allopurinoL 100 MG TAB PO SCH (08:16)
[2020-10-22 08:37] LABS: MAGNESIUM LEVEL 1.9 MG/DL (1.8-2.4)
[2020-10-22 12:00] VITALS: BP 125/58
--- NOTE | 2020-10-22 22:10 | DS.PDOC ---
Discharge Summary General Date of Admission Oct 20, 2020 at 19:46 Date of Discharge Oct 22, 2020 Discharge Summary PROCEDURES PERFORMED DURING STAY: [None]. ADMITTING DIAGNOSES: 1. . DISCHARGE DIAGNOSES: 1. . COMPLICATIONS/CHIEF COMPLAINT: Stenosis Of Middle Cerebral Artery. HISTORY OF PRESENT ILLNESS: . HOSPITAL COURSE: . DISCHARGE MEDICATIONS: Please see below. ALLERGIES: Please see below. PHYSICAL EXAMINATION ON DISCHARGE: VITAL SIGNS: Please see below. GENERAL: HEENT: NECK: CARDIOVASCULAR EXAMINATION: RESPIRATORY EXAMINATION: ABDOMINAL EXAMINATION: EXTREMITIES: SKIN: NEUROLOGICAL EXAMINATION: PSYCHIATRIC EXAMINATION: LABORATORY DATA: Please see below. IMAGING: PROGNOSIS: ACTIVITY: [As tolerated]. DIET: DISCHARGE PLAN: DISPOSITION: Home Health Service. DISCHARGE INSTRUCTIONS: 1. . ITEMS TO FOLLOWUP ON ON OUTPATIENT: 1. . DISCHARGE CONDITION: [Stable]. TIME SPENT ON DISCHARGE: Greater than minutes. Vital Signs/I&Os Vital Signs Date Time Temp Pulse Resp B/P (MAP) Pulse Ox O2 Delivery O2 Flow Rate FiO2 10/22/20 12:00 97.7 67 18 125/58 (80) 92 Room Air 10/20/20 17:31 2.0 I&O- Last 24 Hours up to 6 AM 10/22/20 06:00 Intake Total 1620 ml Output Total 1100 ml Balance 520 ml Laboratory Data Labs 24H Laboratory Tests 2 10/22/20 05:39: Nucleated Red Blood Cells % (auto) 0.0, Anion Gap 8, Glomerular Filtration Rate > 60.0, Calcium Level 8.6L, Magnesium Level 1.9 CBC/BMP Laboratory Tests 10/22/20 05:39 Discharge Medications Scheduled Adalimumab (Humira) 40 Mg/0.8 Ml Kit, 40 MG SC QWEEK, (Reported) FRIDAYS Allopurinol (Allopurinol) 100 Mg Tablet, 100 MG PO BID, (Reported) Amlodipine Besylate (Amlodipine Besylate) 10 Mg Tablet, 10 MG PO DAILY, (Reported) Aspirin (Aspirin EC) 325 Mg Tablet.dr, 325 MG PO DAILY, (Reported) Atorvastatin Calcium (Atorvastatin Calcium) 80 Mg Tablet, 80 MG PO DAILY, (Repo rted) Citalopram Hydrobromide (Celexa) 40 Mg Tab, 40 MG PO QHS, (Reported) Clopidogrel Bisulfate (Clopidogrel) 75 Mg Tablet, 75 MG PO DAILY, (Reported) Levothyroxine Sodium (Levothyroxine Sodium) 75 Mcg Tablet, 75 MCG PO QAM, (Reported) Lisinopril (Lisinopril) 20 Mg Tablet, 20 MG PO DAILY, (Reported) Meloxicam (Mobic) 7.5 Mg Tablet, 7.5 MG PO DAILY, (Reported) WITH FOOD Metformin HCl (Metformin HCl) 500 Mg Tablet, 1,000 MG PO DAILY, (Reported) Metoprolol Tartrate (Metoprolol Tartrate) 25 Mg Tablet, 25 MG PO BID, (Reported) Pantoprazole Sodium (Pantoprazole Sodium) 40 Mg Tablet.dr, 40 MG PO BID, (Reported) Scheduled PRN Acetaminophen/Diphenhydramine (Acetaminophen Pm Caplet) 1 Each Tablet, 2 TAB PO QHS PRN for SLEEP, (Reported) Albuterol Sulfate (Ventolin Hfa) 18 Gm Hfa.aer.ad, 2 PUFF INH Q6H PRN for SHORTNESS OF BREATH, (Reported) Allergies Coded Allergies: levofloxacin (Verified Allergy, Severe, " swelled up and couldn't breath", 08/02/20) infliximab (Verified Adverse Reaction, Severe, coughing, 10/20/20) VANDANA PICKENS DO Oct 22, 2020 22:10
== END 2020-10-22 13:05 | disposition home health service (06) | DRG 66 ==
LOC: M ED 16:58 → EDBD 16:58 → M ED INP 19:46 → M PCU 10-21 00:35
PROVIDERS: ADMIT Family Medicine; ATTEND Family Medicine
DX: I63.511 Cerebral infarction due to unspecified occlusion or stenosis of right middle cerebral artery (principal); I67.2 Cerebral atherosclerosis; D86.9 Sarcoidosis, unspecified; I45.81 Long QT syndrome; E03.9 Hypothyroidism, unspecified; E11.9 Type 2 diabetes mellitus without complications; I10 Essential (primary) hypertension; M10.9 Gout, unspecified; F32.9 Major depressive disorder, single episode, unspecified; K21.9 Gastro-esophageal reflux disease without esophagitis; Z20.822 Contact with and (suspected) exposure to COVID-19; Z79.82 Long term (current) use of aspirin; Z79.899 Other long term (current) drug therapy; Z79.1 Long term (current) use of non-steroidal anti-inflammatories (NSAID); Z88.1 Allergy status to other antibiotic agents; Z88.5 Allergy status to narcotic agent

== ENCOUNTER 2020-12-08 12:41 | Inpatient (IN) | payer MEDICAID, MEDICARE ==
[~2020-12-08] VITALS: Ht 162.6 cm; Wt 101.5 kg
[~2020-12-08 12:41] MED LIST changes: +ACET25TA12 PO; +ASPI32ECTA PO; +ATOR80TA59 PO; +CLOP75TA2 PO; +LEVO75TA4 PO; +MOBI4TAB PO; +PANT40TA29 PO
[2020-12-08 17:54] VITALS: BP 142/85
[2020-12-08] MEDS ORDERED: ACETAMINOPHEN TAB 650MG DOSE (2X325MG) PO PRN (18:10)
[2020-12-08] MEDS ORDERED: ALBUTEROL 90 MCG/ACT 8GM HFA INHALER INH PRN (18:10)
[2020-12-08] MEDS ORDERED: GLUCAGON INJ 1MG VIAL SC PRN (18:25)
[2020-12-08] MEDS ORDERED: DEXTROSE 50% 50 ML SYRINGE IV PRN (18:25)
[2020-12-08] MEDS ORDERED: GLUCOSE 4GM CHEW TABLET PO PRN (18:25)
[2020-12-08] MEDS ORDERED: LISI10TA22 PO (18:29)
[2020-12-08] MEDS ORDERED: VITA50005 PO (18:29)
[2020-12-08] MEDS ORDERED: MELO15TA28 PO (18:29)
--- NOTE | 2020-12-08 18:51 | HPEPDOC ---
[facility] Medical History & Physical Date of Admission December 08, 2020 Date of Service: December 08, 2020 Attending Physician: NANO GARNER MD History and Physical CHIEF COMPLAINT: Left sided weakness HISTORY OF PRESENT ILLNESS: 65-year-old W with a history of sarcoidosis, RA, long QT syndrome, hypertension, non-insulin dependent diabetes, R parietal and R temporal CVA in 07/2020 2/2 severe R MCA stenosis, 2 TIA's since with stable MRIs both times without new strokes who presented to [facility] with L face parasthesias and landen numbness that evolved to global left sided heaviness and weakness with a maximum NIHSS score f 8 while at [place] and then he symptoms started to improve after that and almost resolved at this time with now return to feeling to L face and strength is now 4-4.5/5 to the LUE and LLE. She reports 100% compliance with her ASA 325 and plavix 75 QD and denies any recent chest pain, palpitations, recent illness, LOC, trauma, vision loss or changes, fever, chills, nausea, emesis, abdominal pain, dysuria. At [facility] she had a CT head that showed no evidence of an acute infarct, mass or hemorrhage. The provider called and spoke with Dr. Khanna who recommended transfer to [facility] for MRI imaging to definitively r/o CVA. PAST MEDICAL/SURGICAL HISTORY: Known M1 intracranial artery stenosis from Jul 2020 Sarcoidosis Rheumatoid arthritis Long QT syndrome Hypertension Xnj-jvpztlw-tlahvhouv diabetes Gout GERD Depression Right foot fusion surgery Right wrist surgery with plate Hysterectomy SOCIAL HISTORY: Denies alcohol use Denies tobacco use Denies illicit drug use FAMILY HISTORY: Reviewed and none contributory to this admission ALLERGIES: Please see below. REVIEW OF SYSTEMS: 10 point review of systems complete all negative otherwise stated in HPI HOME MEDICATIONS: Please see below. PHYSICAL EXAMINATION: Vitals: see below Constitutional: Awake and alert, in no apparent distress ENT: Sclera are clear. Mucosa is moist. Respiratory: Lungs CTA bilaterally. No respiratory distress. Cardiovascular: RRR, no m/r/g Gastrointestinal: Normoactive bowel sounds, obese, soft, NTND Musculoskeletal: No lower extremity edema. 5/5 strength in RUE and RLE, 4.5/5 in LUE and LLE. mental status: Awake, alert, oriented to name, location, and date. Great historian. Cranial nerves: Pupils are equal, round, and reactive to light. Extraocular muscles intact. Visual hammer full. Smile is symmetrical. Tongue is midline. Intact sensation on both sides of face. Motor: 4.5/5 L side strength, 5/5 R side strength. Sensory: Intact to sensation bilaterally. Reflexes: Symmetrical patellar reflexes. No hypo or hyperreflexia. Coordination: Iiaesp-ef-onts grossly intact. No drift noted. LABORATORY DATA: Pending admission labs. At [facility]: WBC 11.6 Hgb 13.9 Hct 42.9 platelets 335 Na 144 K 3.6 Cl 105 CO2 23.8 glucose 119 BUN 13 Cr 0.85 troponin <0.017 TSH 4.36 LFTs wnl MICROBIOLOGY: Please see below. ASSESSMENT/PLAN # TIA r/o stroke: -CT head from [facility] was negative for acute pathology -has known stenosis right M1 similar to prior exam in Jul. -Dr. Khanna consulted by [facility] and recommended transfer to [facility] for MRI/MRA brain. No intracranial intervention, to monitor and continue medical management. - NIH stroke scale 0 on arrival - Plavix and ASA daily per home script - Atorvastatin 80 mg QHS - MRI/MRA brain pending - Carotid ultrasound ordered - Will defer TTE with bubble after a few TTEs that were negative each time for shunt - consistent carb diet - Consult Dr. Khanna, aware as he recommended transfer - PT/OT eval # RA - hold home humira for now. # Long QT syndrome: - Continue home metoprolol. - Will avoid QTc prolonging meds # Hypothyroidism: - resume levothyroxine # DM: - ISS AC/HS -FSBG AC/HS -holf home metformin -hypoglycemia protocol # Hypertension: -Continue home meds. # Gout: -Continue allopurinol # Depression: -Continue citalopram # GERD: -continue PPI # DVT prophylaxis: Heparin SC Vital Signs Vital Signs Date Time Temp Pulse Resp B/P (MAP) Pulse Ox O2 Delivery O2 Flow Rate FiO2 12/08/20 17:54 97.9 68 20 142/85 (104) 95 Room Air Home Medications Scheduled Acetaminophen/Diphenhydramine (Acetaminophen Pm Caplet) 1 Each Tablet, 2 TAB PO QHS Adalimumab (Humira) 40 Mg/0.8 Ml Kit, 40 MG SC QWEEK SUNDAYS Allopurinol (Allopurinol) 100 Mg Tablet, 100 MG PO BID Aspirin (Aspirin EC) 325 Mg Tablet.dr, 325 MG PO DAILY Atorvastatin Calcium (Atorvastatin Calcium) 80 Mg Tablet, 80 MG PO QHS Citalopram Hydrobromide (Celexa) 40 Mg Tab, 40 MG PO QHS Clopidogrel Bisulfate (Clopidogrel) 75 Mg Tablet, 75 MG PO DAILY Ergocalciferol (Vitamin D2) (Vitamin D2) 50,000 Units Cap, 50,000 UNITS PO QWEEK SUNDAYS Levothyroxine Sodium (Levothyroxine Sodium) 75 Mcg Tablet, 75 MCG PO QAM Lisinopril (Lisinopril) 10 Mg Tablet, 10 MG PO DAILY Meloxicam (Meloxicam) 15 Mg Tablet, 15 MG PO DAILY Metformin HCl (Metformin HCl) 500 Mg Tablet, 500 MG PO BID Pantoprazole Sodium (Pantoprazole Sodium) 40 Mg Tablet.dr, 40 MG PO BID Scheduled PRN Albuterol Sulfate (Ventolin Hfa) 18 Gm Hfa.aer.ad, 2 PUFF INH Q6H PRN for SHORT NESS OF BREATH Allergies Coded Allergies: levofloxacin (Verified Allergy, Severe, " swelled up and couldn't breath", 08/02/20) infliximab (Verified Adverse Reaction, Severe, coughing, 10/20/20) A-FIB/CHADSVASC A-FIB History Current/History of A-Fib/PAF?: No Current PO Anticoag Therapy: No Age/Risk Factor Scoring CHADSVASC: CHADSVASC Response (Comments) Value Age Risk Factor Age 65-74 years old 1 Gender Risk Factor Female 1 Hx of CHF No 0 Hx of HTN Yes 1 Hx of Stroke/TIA/or VTE Yes 2 Hx of Diabetes Yes 1 Hx of Vascular Disease Yes 1 Total 7 Treatment Treatment ordered: NONE Reason Anticoagulant not given: Not indicated/[id number] NANO GARNER MD December 08, 2020 18:51
[2020-12-08 19:11] LABS: HEMATOCRIT 43.3 % (36.0-47.0); HEMOGLOBIN 14.2 g/dl (12.0-15.5); MEAN CORPUSCULAR HGB CONC 32.8 g/dl (32.0-36.5); MEAN CORPUSCULAR VOLUME 88.5 fl (80.0-96.0); PLATELET COUNT, AUTOMATED 329 10^3/uL (150-450); RED BLOOD COUNT 4.89 10^6/uL (4.00-5.40); WHITE BLOOD COUNT 11.1 10^3/uL (4.0-10.0)
[2020-12-08 19:24] LABS: INR 0.91; PARTIAL THROMBOPLASTIN TIME 23.9 SECONDS (24.2-38.5); PROTHROMBIN TIME 12.4 SECONDS (12.5-14.3)
[2020-12-08 19:42] LABS: ALBUMIN 3.9 GM/DL (3.2-5.2); ALT/SGPT 39 U/L (12-78); BILIRUBIN,DIRECT 0.1 MG/DL (0.0-0.2); BILIRUBIN,TOTAL 0.6 MG/DL (0.2-1.0); BLOOD UREA NITROGEN 13 MG/DL (7-18); CALCIUM LEVEL 9.4 MG/DL (8.8-10.2); CARBON DIOXIDE LEVEL 24 MEQ/L (21-32); CHLORIDE LEVEL 108 MEQ/L (98-107); CHOLESTEROL LEVEL 252 MG/DL (<200); CHOLESTEROL RISK RATIO 4.754 (<5); CK-MB VALUE MASS < 1.0 NG/ML (<3.6); CPK CREATINE PHOSPHOKINASE 36 U/L (26-192); CREATININE FOR GFR 0.78 MG/DL (0.55-1.30); GLOMERULAR FILTRATION RATE > 60.0 (>45); GLUCOSE, FASTING 93 MG/DL (70-100); HDL CHOLESTEROL 53 MG/DL (>40); LDL CHOLESTEROL 144 MG/DL (<100); MB/CK RELATIVE INDEX 2.78 (< OR =4); NON-HDL-C 199 MG/DL; POTASSIUM SERUM 3.8 MEQ/L (3.5-5.1); SODIUM LEVEL 141 MEQ/L (136-145); TOTAL PROTEIN 7.6 GM/DL (6.4-8.2); TRIGLYCERIDES LEVEL 276 MG/DL (<150); TROPONIN I < 0.02 NG/ML (< 0.10)
[2020-12-08] MEDS ORDERED: ATORVASTATIN 20 MG TAB PO SCH (21:00)
[2020-12-08] MEDS ORDERED: HumaLOG INSULIN (NovoLOG) PER UNIT SC SCH (21:00)
[2020-12-08] MEDS ORDERED: CitaloPRAM (CeleXA) 20 MG TAB PO SCH (21:00)
--- NOTE | 2020-12-08 21:26 | REPVR ---
PROCEDURE INFORMATION: Exam: MRA Head Without Contrast; Arteriography Exam date and time: 12/08/2020 8:51 PM Age: 65 years old Clinical indication: Dizziness and giddiness; Additional info: TIA TECHNIQUE: Imaging protocol: Magnetic resonance angiography head without contrast. Exam focused on the arteries. COMPARISON: MRA BRAIN W/O CONTRAST 10/20/2020 8:09 PM FINDINGS: Limitations: Patient motion. ANTERIOR CIRCULATION: Right internal carotid artery: Intracranial segment is patent with no significant stenosis. No aneurysm. Right middle cerebral artery: Severe right MCA M1 stenosis is stable from prior examination. Right anterior cerebral artery: No occlusion or significant stenosis. No aneurysm. Left internal carotid artery: Intracranial segment is patent with no significant stenosis. No aneurysm. Left middle cerebral artery: No occlusion or significant stenosis. No aneurysm. Left anterior cerebral artery: No occlusion or significant stenosis. No aneurysm. POSTERIOR CIRCULATION: Right vertebral artery: No occlusion or significant stenosis. No aneurysm. Left vertebral artery: No occlusion or significant stenosis. No aneurysm. Basilar artery: No occlusion or significant stenosis. No aneurysm. Right posterior cerebral artery: origin of the right posterior cerebral artery. Left posterior cerebral artery: No occlusion or significant stenosis. No aneurysm. IMPRESSION: Severe right MCA M1 stenosis is stable. Electronically signed by: Jose Alfredo Smart On 12/08/2020 21:26:27 PM
--- NOTE | 2020-12-08 21:26 | REPVR ---
PROCEDURE INFORMATION: Exam: MR Head Without Contrast Exam date and time: 12/08/2020 8:51 PM Age: 65 years old Clinical indication: Pain; Headache not specified; Additional info: TIA TECHNIQUE: Imaging protocol: MR of the head without contrast. COMPARISON: MRI-Brain without Contrast 10/20/2020 8:09 PM FINDINGS: Major vascular flow voids at the skull base are preserved. No extra-axial fluid collection. No hydrocephalus. Non-specific white matter gliosis, probable chronic microvascular ischemia. No midline shift or significant intracranial mass effect. No diffusion restriction. No cerebral edema. Chronic lacunar infarct involving the right gillian. Minimal paranasal sinus disease. Bilateral mastoid effusions. IMPRESSION: No acute intracranial abnormality. Electronically signed by: Jose Alfredo Smart On 12/08/2020 21:26:14 PM
[2020-12-08] MEDS: allopurinoL 100 MG TAB PO SCH (21:32)
[2020-12-08 22:00] VITALS: BP 142/86
[2020-12-09 02:00] VITALS: BP 152/85
[2020-12-09 05:58] LABS: HEMATOCRIT 41.2 % (36.0-47.0); HEMOGLOBIN 13.2 g/dl (12.0-15.5); MEAN CORPUSCULAR HEMOGLOBIN 28.4 pg (27.0-33.0); MEAN CORPUSCULAR VOLUME 88.6 fl (80.0-96.0); PLATELET COUNT, AUTOMATED 317 10^3/uL (150-450); RED BLOOD COUNT 4.65 10^6/uL (4.00-5.40); WHITE BLOOD COUNT 9.8 10^3/uL (4.0-10.0)
[2020-12-09 06:00] VITALS: BP 150/85
[2020-12-09] MEDS ORDERED: LEVOTHYROXINE 75MCG TABLET (0.075MG) PO SCH (06:00)
[2020-12-09 06:28] LABS: BLOOD UREA NITROGEN 16 MG/DL (7-18); CALCIUM LEVEL 9.4 MG/DL (8.8-10.2); CARBON DIOXIDE LEVEL 24 MEQ/L (21-32); CHLORIDE LEVEL 107 MEQ/L (98-107); CREATININE FOR GFR 0.71 MG/DL (0.55-1.30); GLOMERULAR FILTRATION RATE > 60.0 (>45); GLUCOSE, FASTING 105 MG/DL (70-100); MAGNESIUM LEVEL 1.8 MG/DL (1.8-2.4); POTASSIUM SERUM 4.3 MEQ/L (3.5-5.1); SODIUM LEVEL 141 MEQ/L (136-145)
[2020-12-09] MEDS ORDERED: HumaLOG INSULIN (NovoLOG) PER UNIT SC SCH (07:30)
--- NOTE | 2020-12-09 08:00 | DS.PDOC ---
Discharge Summary General Date of Admission December 08, 2020 at 17:40 Date of Discharge 12/09/2020 Attending Physician: NANO GARNER MD Discharge Summary PROCEDURES PERFORMED DURING STAY: None ADMITTING DIAGNOSES: TIA DISCHARGE DIAGNOSES: TIA Known M1 intracranial artery stenosis from Jul 2020, that is stable at this time Sarcoidosis Rheumatoid arthritis Long QT syndrome Hypertension Nww-lcfjtxy-tzwzxfgew diabetes Gout GERD Depression COMPLICATIONS/CHIEF COMPLAINT: TIA. HISTORY OF PRESENT ILLNESS: 65-year-old W with a history of sarcoidosis, RA, long QT syndrome, hypertension, non-insulin dependent diabetes, R parietal and R temporal CVA in 07/2020 2/2 severe R MCA stenosis, 2 TIA's since with stable MRIs both times without new confirmed strokes who presented to [facility] with L face paraesthesias and landen numbness that evolved to global left sided heaviness and weakness with a maximum NIHSS score f 8 while at [place] and then her symptoms started to imp rove after that and almost resolved at transfer to [facility]. She reported 100% compliance with her ASA 325 and plavix 75 QD and denied any recent chest pain, palpitations, recent illness, LOC, trauma, vision loss or changes, fever, chills, nausea, emesis, abdominal pain, dysuria. At [facility] she had a CT head that showed no evidence of an acute infarct, mass or hemorrhage. The provider called and spoke with Dr. Khanna who recommended transfer to [facility] for MRI imaging to definitively r/o CVA. HOSPITAL COURSE: At arrival to [facility] her exam was now back to recent baseline with veyr slight L sided weakness compared to R and normal sensation had returned to her left side. MRI and MRA of brain were negative for an acute infarct and showed stable known R MCA stenosis respectively. By day 2 AM exam was completely back to baseline with full strength and sensation in all extremities. I did not repeat a carotid ultrasound as she just had one 1 month ago that showed patency and the likelihood of bilateral insufficiency within a month is very low. She is now being discharged home to follow up with her PCP and neurologist. DISCHARGE MEDICATIONS: Please see below. ALLERGIES: Please see below. PHYSICAL EXAMINATION ON DISCHARGE: VITAL SIGNS: Please see below. Constitutional: Awake and alert, in no apparent distress ENT: Sclera are clear. Mucosa is moist. Respiratory: Lungs CTA bilaterally. No respiratory distress. Cardiovascular: RRR, no m/r/g Gastrointestinal: Normoactive bowel sounds, obese, soft, NTND Extremities: No lower extremity edema. WWP mental status: Awake, alert, oriented to name, location, and date. Cranial nerves: Pupils are equal, round, and reactive to light. Extraocular muscles intact. Visual hammer full. Smile is symmetrical. Tongue is midline. Intact sensation on both sides of face. Motor: 5/5 strength throughout Sensory: Intact to sensation bilaterally. Reflexes: Symmetrical patellar reflexes. Coordination: [id number]-uy-vtsx grossly intact. LABORATORY DATA: Please see below. IMAGING: CT head done at [place]: found not acute intracranial abnormality MRA brain: Right internal carotid artery: Intracranial segment is patent with no significant stenosis. No aneurysm. Right middle cerebral artery: Severe right MCA M1 stenosis is stable from prior examination. Right anterior cerebral artery: No occlusion or significant stenosis. No aneurysm. Left internal carotid artery: Intracranial segment is patent with no significant stenosis. No aneurysm. Left middle cerebral artery: No occlusion or significant stenosis. No aneurysm. Left anterior cerebral artery: No occlusion or significant stenosis. No aneurysm. POSTERIOR CIRCULATION: Right vertebral artery: No occlusion or significant stenosis. No aneurysm. Left vertebral artery: No occlusion or significant stenosis. No aneurysm. Basilar artery: No occlusion or significant stenosis. No aneurysm. Right posterior cerebral artery: origin of the right posterior cerebral artery. Left posterior cerebral artery: No occlusion or significant stenosis. No aneurysm. IMPRESSION: Severe right MCA M1 stenosis is stable. MRI brain: Major vascular flow voids at the skull base are preserved. No extra-axial fluid collection. No hydrocephalus. Non-specific white matter gliosis, probable chronic microvascular ischemia. No midline shift or significant intracranial mass effect. No diffusion restriction. No cerebral edema. Chronic lacunar infarct involving the right gillian. Minimal paranasal sinus disease. Bilateral mastoid effusions. PROGNOSIS: Good ACTIVITY: As tolerated DIET: consistent carb DISCHARGE PLAN: Home with close PCP and neurology follow up DISPOSITION: Home DISCHARGE INSTRUCTIONS: Home with close PCP and neurology follow up Continue ASA 325 QD and plavix 75 QD ITEMS TO FOLLOWUP ON ON OUTPATIENT: TIA DISCHARGE CONDITION: Stable TIME SPENT ON DISCHARGE: 44 minutes. Vital Signs/I&Os Vital Signs Date Time Temp Pulse Resp B/P (MAP) Pulse Ox O2 Delivery O2 Flow Rate FiO2 12/09/20 06:00 97.6 58 16 150/85 (106) 92 Room Air I&O- Last 24 Hours up to 6 AM 12/09/20 06:00 Intake Total 720 ml Output Total 100 ml Balance 620 ml Laboratory Data Labs 24H Laboratory Tests 2 12/08/20 18:57: Nucleated Red Blood Cells % (auto) 0.0, Prothrombin Time 12.4, Prothromb Time International Ratio 0.91, Activated Partial Thromboplast Time 23.9L, Anion Gap 9, Glomerular Filtration Rate > 60.0, Calcium Level 9.4, Total Bilirubin 0.6, Direct Bilirubin 0.1, Aspartate Amino Transf (AST/SGOT) 39H, Alanine Aminot ransferase (ALT/SGPT) 39, Alkaline Phosphatase 100, Total Creatine Kinase 36, Creatine Kinase MB < 1.0, Creatine Kinase MB Relative Index 2.78, Troponin I < 0.02, Total Protein 7.6, Albumin 3.9, Albumin/Globulin Ratio 1.1L, Triglycerides Level 276H, Total Cholesterol 252H, LDL Cholesterol 144H, Non-HDL Cholesterol (LDL + VLDL) 199, Total HDL Cholesterol 53, Cholesterol/HDL Ratio 4.754 12/08/20 21:27: Bedside Glucose (Misc Panel) 125H 12/09/20 05:37: Nucleated Red Blood Cells % (auto) 0.0, Anion Gap 10, Glomerular Filtration Rate > 60.0, Calcium Level 9.4, Magnesium Level 1.8 CBC/BMP Laboratory Tests 12/08/20 18:57 12/09/20 05:37 FSBS Laboratory Tests Test 12/08/20 21:27 Range/Units Bedside Glucose (Misc Panel) 125 80-115 MG/DL Discharge Medications Scheduled Acetaminophen/Diphenhydramine (Acetaminophen Pm Caplet) 1 Each Tablet, 2 TAB PO QHS, (Reported) Adalimumab (Humira) 40 Mg/0.8 Ml Kit, 40 MG SC QWEEK, (Reported) SUNDAYS Allopurinol (Allopurinol) 100 Mg Tablet, 100 MG PO BID, (Reported) Aspirin (Aspirin EC) 325 Mg Tablet.dr, 325 MG PO DAILY, (Reported) Atorvastatin Calcium (Atorvastatin Calcium) 80 Mg Tablet, 80 MG PO QHS, (Reported) Citalopram Hydrobromide (Celexa) 40 Mg Tab, 40 MG PO QHS, (Reported) Clopidogrel Bisulfate (Clopidogrel) 75 Mg Tablet, 75 MG PO DAILY, (Reported) Ergocalciferol (Vitamin D2) (Vitamin D2) 50,000 Units Cap, 50,000 UNITS PO QWEEK, (Reported) SUNDAYS Levothyroxine Sodium (Levothyroxine Sodium) 75 Mcg Tablet, 75 MCG PO QAM, (Reported) Lisinopril (Lisinopril) 10 Mg Tablet, 10 MG PO DAILY, (Reported) Meloxicam (Meloxicam) 15 Mg Tablet, 15 MG PO DAILY, (Reported) Metformin HCl (Metformin HCl) 500 Mg Tablet, 500 MG PO BID, (Reported) Pantoprazole Sodium (Pantoprazole Sodium) 40 Mg Tablet.dr, 40 MG PO BID, (Reported) Scheduled PRN Albuterol Sulfate (Ventolin Hfa) 18 Gm Hfa.aer.ad, 2 PUFF INH Q6H PRN for SHORTNESS OF BREATH, (Reported) Allergies Coded Allergies: levofloxacin (Verified Allergy, Severe, " swelled up and couldn't breath", 08/02/20) infliximab (Verified Adverse Reaction, Severe, coughing, 10/20/20) NANO GARNER MD December 09, 2020 07:56
[2020-12-09] MEDS: allopurinoL 100 MG TAB PO SCH (08:36)
[2020-12-09 08:37] VITALS: BP 150/85
[2020-12-09] MEDS ORDERED: ASPIRIN 81 MG CHEW TABLET PO SCH (09:00)
[2020-12-09] MEDS ORDERED: CLOPIDOGREL 75 MG TAB PO SCH (09:00)
[2020-12-09] MEDS ORDERED: MELOXICAM (MOBIC) 7.5 MG TAB PO SCH (09:00)
[2020-12-09] MEDS ORDERED: PANTOPRAZOLE 40MG TAB (PROTONIX) PO SCH (09:00)
[2020-12-09 10:00] VITALS: BP 164/78
== END 2020-12-09 12:22 | disposition home or self-care (01) | DRG 69 ==
LOC: INTOOBSV 17:40 → M MSPAV 17:40 → OBSVTOIN 17:40
PROVIDERS: ADMIT General Practice; ATTEND Internal Medicine
DX: G45.9 Transient cerebral ischemic attack, unspecified (principal); E11.9 Type 2 diabetes mellitus without complications; I10 Essential (primary) hypertension; M10.9 Gout, unspecified; K21.9 Gastro-esophageal reflux disease without esophagitis; M06.9 Rheumatoid arthritis, unspecified; D86.9 Sarcoidosis, unspecified; I66.9 Occlusion and stenosis of unspecified cerebral artery; I45.81 Long QT syndrome; Z86.73 Personal history of transient ischemic attack (TIA), and cerebral infarction without residual deficits; Z79.82 Long term (current) use of aspirin; Z79.899 Other long term (current) drug therapy; Z88.8 Allergy status to other drugs, medicaments and biological substances; E03.9 Hypothyroidism, unspecified

== ENCOUNTER 2022-06-14 14:13 | Emergency (ER) | payer MEDICARE ==
[~2022-06-14] VITALS: Ht 162.6 cm; Wt 90.9 kg
[~2022-06-14 14:13] MED LIST changes: +ERGO500029 PO; +LISI10TA22 PO; +MELO15TA28 PO; -VITA50005 PO
[2022-06-14] MEDS ORDERED: PROL60SO (14:47)
[2022-06-14] MEDS ORDERED: ROSU10TA6 (14:47)
[2022-06-14] MEDS ORDERED: IBUPROFEN 600MG TAB PO ONE (19:50)
[2022-06-14] MEDS ORDERED: ACETAMINOPHEN 500 MG TAB PO ONE (21:20)
[2022-06-14] MEDS ORDERED: CAPSAICIN 0.025% CR 60 GM TOP STA (21:36)
[2022-06-14] MEDS ORDERED: traMADol 50 MG TAB PO ONE (21:40)
[2022-06-14 23:06] VITALS: BP 144/87
[2022-06-14] MEDS ORDERED: TRAM50TA2 PO (23:08)
[2022-06-14] MEDS ORDERED: CAPS0.022 TOP (23:08)
[2022-06-14] MEDS ORDERED: CANEMIS41 XX (23:10)
== END 2022-06-14 23:32 | disposition home or self-care (01) ==
LOC: M ED 14:13
DX: M17.12 Unilateral primary osteoarthritis, left knee (principal); E11.9 Type 2 diabetes mellitus without complications; E78.5 Hyperlipidemia, unspecified; K21.9 Gastro-esophageal reflux disease without esophagitis; Z79.84 Long term (current) use of oral hypoglycemic drugs; Z86.73 Personal history of transient ischemic attack (TIA), and cerebral infarction without residual deficits; Z88.1 Allergy status to other antibiotic agents; Z79.51 Long term (current) use of inhaled steroids; Z79.899 Other long term (current) drug therapy